=== PATIENT | female | born 1935 | race Hispanic/Latino ===

== ENCOUNTER 2019-01-08 07:35 | Outpatient (CLI) | payer MEDICARE, BC | END 2019-01-08 07:36 | disposition home or self-care (01) | LOC: CT 07:35 | PROVIDERS: ATTEND Thoracic Surgery (Cardiothoracic Vascular Surgery) | DX: Z53.9 Procedure and treatment not carried out, unspecified reason (principal) | CPT/HCPCS: 82565 ==

== ENCOUNTER 2019-02-14 16:32 | Emergency (ER) | payer MEDICARE, BC ==
--- NOTE | 2019-02-14 17:06 | RAD ---
LEFT WRIST THREE VIEW: 02/14/19 INDICATION: Injury, pain. FINDINGS: There is an impacted displaced and comminuted distal metadiaphyseal fracture of the radius. Suggestio n of a component of intra-articular extension, at the medial aspect, although difficult to reliably d elineate. There is degenerative changes. IMPRESSION: Distal radial fracture with probable intra-articular extension. Recommend orthopedic consultation. POS: ISAAC
[2019-02-14] MEDS ORDERED: Acetaminophen/Codeine 30-300mg Tablet ONE (18:07)
[2019-02-14] MEDS ORDERED: Bupivacaine 0.5% 10 ML VIAL ONE (18:27)
[2019-02-14] MEDS ORDERED: Lidocaine 1% (PF) 30 ML VIAL ONE (18:35)
--- NOTE | 2019-02-14 19:40 | RAD ---
EXAM: 2 views of the left wrist HISTORY: Distal radius fracture COMPARISON: 02/14/2019 FINDINGS: 3 views of the left wrist shows a stable fracture of the metaphysis of the distal radius. A n overlying splint obscures fine bony and soft tissue detail. IMPRESSION: Distal radius fracture
--- NOTE | 2019-02-14 20:19 | RAD ---
EXAM: 2 views of the left wrist HISTORY: Distal radius fracture COMPARISON: 02/14/2019 at 7:22 PM FINDINGS: 2 views of the left wrist shows an unchanged fracture of the distal radial metaphysis which is foreshortened. An overlying splint obscures fine bony and soft tissue detail. IMPRESSION: Distal radius fracture
== END 2019-02-14 20:40 | disposition home or self-care (01) ==
LOC: ERS 16:32
DX: S52.502A Unspecified fracture of the lower end of left radius, initial encounter for closed fracture (principal); E78.5 Hyperlipidemia, unspecified; I10 Essential (primary) hypertension; F41.9 Anxiety disorder, unspecified; Z79.899 Other long term (current) drug therapy; W01.0XXA Fall on same level from slipping, tripping and stumbling without subsequent striking against object, initial encounter
CPT/HCPCS: 25605; J2001; J3490

== ENCOUNTER 2019-02-22 11:01 | Day surgery (SDC) | payer MEDICARE, BC ==
[2019-02-21 13:07] VITALS: BMI 25.6
[2019-02-22] MEDS ORDERED: Midazolam HCl 2 mg/2 ml Vial ONE (12:14)
[2019-02-22] MEDS ORDERED: Fentanyl 100 MCG/2 ML VIAL ONE ×3 (12:14→14:32)
[2019-02-22 12:35] LABS: Anion Gap 15 mmol/L (10-20); BUN (Urea Nitrogen) 46 mg/dL (9.8-20.1); Calc. Creatinine Clearance 21 mL/min (70-130); Calcium 9.5 mg/dL (7.8-10.44); Carbon Dioxide 22 mmol/L (23-31); Chloride 108 mmol/L (98-107); Estimated GFR-MDRD 24; Glucose 95 mg/dL (83-110); Potassium 4.6 mmol/L (3.5-5.1); Sodium 140 mmol/L (136-145)
[2019-02-22] MEDS ORDERED: HYDROcodone/Acetaminophen 5/325 mg Tablet PO PRN ×2 (12:42)
[2019-02-22] MEDS ORDERED: traMADol HCl 50 MG TAB PO PRN ×2 (12:42)
[2019-02-22] MEDS ORDERED: Ropivacaine 0.2% 550 ML 550 ML NERVE BLCK SCH (12:42)
[2019-02-22] MEDS ORDERED: Ketorolac Tromethamine 30 MG/ML VIAL IVP PRN (12:42)
[2019-02-22] MEDS ORDERED: Ondansetron PF 4 MG/2 ML Vial IVP PRN (12:42)
[2019-02-22] MEDS ORDERED: Promethazine HCl 25 MG/ML VIAL IM PRN (12:42)
[2019-02-22] MEDS ORDERED: HYDROcodone/Acetaminophen 10/325 mg Tablet PO PRN ×2 (12:42)
[2019-02-22] MEDS ORDERED: Zolpidem Tartrate 5 MG TAB PO PRN (12:42)
[2019-02-22] MEDS ORDERED: Fentanyl 100 MCG/2 ML VIAL SLOW IVP PRN (12:44)
[2019-02-22] MEDS ORDERED: Ropivacaine 0.2% HCl/PF (40 MG/20 ML VIAL) ONE (15:08)
[2019-02-22] MEDS ORDERED: Ropivacaine 0.5% HCl/PF (150 MG/30 ML VIAL) ONE (15:08)
--- NOTE | 2019-02-22 15:08 | RAD ---
Radiograph left forearm and wrist 2 views: DATE: 02/22/2019 Time: 12:55 PM HISTORY: 83-year-old female with acute, traumatic fracture of wrist. COMPARISON: 02/14/2019 at 8:00 PM FINDINGS: The comminuted fracture of the distal radial metaphysis has been reduced such that the major distal a nd proximal fragments are closer to anatomic alignment. There has been placement of a full are metallic plate fixated to the distal radial epiphysis and metaphysis, and distal diaphysis. Small fie ld-of-view fluoroscopic spot images obtained with C-arm in the OR. Ulna plus remains. Absence of ulnar styloid. IMPRESSION: 1. Immediately status post open reduction internal fixation of acute, traumatic, comminuted, displace d distal radial metaphyseal fracture. 2. Ulnar positive variance.
[2019-02-22] MEDS ORDERED: Ondansetron PF 4 MG/2 ML Vial ONE (16:34)
[2019-02-22] MEDS ORDERED: PROPOFOL 200 MG/20 ML VIAL ONE (16:34)
[2019-02-22] MEDS ORDERED: Dexamethasone 20 MG/5 ML VIAL ONE (16:34)
[2019-02-22] MEDS ORDERED: Lidocaine 1% PF 5 ML VIAL ONE (16:34)
--- NOTE | 2019-02-23 09:11 | OP ---
DATE OF PROCEDURE: 02/22/2019 PREOPERATIVE DIAGNOSIS: Displaced left distal radius fracture. POSTOPERATIVE DIAGNOSIS: Displaced left distal radius fracture. PROCEDURE PERFORMED: Open reduction and internal fixation of left distal radius. ANESTHESIA: General. CYCLE ANALYST: Court Oates PA-C. TOURNIQUET TIME: 43 minutes at 250 mmHg. IMPLANT: Synthes 2.4 mm variable angle LCP 2-column volar distal radial plate. COMPLICATIONS: None. DRAINS: None. SPECIMEN: None. OUTCOME: Near-anatomic alignment. INDICATIONS FOR PROCEDURE: The patient is an 83-year-old lady status post ground level fall sustaining a comminuted left distal radius fracture with shortening and loss of radial inclination. After discussion with the patient including the risks and benefits, we decided to proceed with open reduction and internal fixation in hopes of restoring more normal radial length and radial inclination and hopefully providing improved function once healed. Informed consent has been obtained, I believe all questions answered. DESCRIPTION OF PROCEDURE: The patient was brought to the operating room and a time-out performed followed by induction of general anesthesia. Next, the patient was positioned supine on the OR table and a sterile prep and drape was performed of the left upper extremity. The limb was then exsanguinated with Esmarch bandage, tourniquet inflated to 250 mmHg. Next, a volar radial skin incision was made. After the skin was sharply incised, dissection was carried down bluntly between the brachioradialis and flexor carpi radialis. The pronator quadratus was identified and reflected off the radial cortex of the distal radius and reflected to the midline revealing the underlying fracture. The fracture could be reduced. However, due to the fact that it was a week old, there really was not great interdigitation at the fracture edges and the bone was quite osteopenic. The fracture eventually could be reduced with almost normal radial length and religion of volar tilt, and radial inclination. At this point, a plate was applied to the volar cortex and held in place provisionally with a 2.7-mm screw in the longitudinal limb of the plate and then a total of four 2.4 mm variable angle screws were placed in the horizontal limb of the plate capturing the distal fragment. Two additional 2.7 mm cortical screws were placed proximally and then final AP and lateral C-arm images were obtained that showed just a slight residual ulnar positive variant, but without abutment of the lunate on the ulna and religion of volar tilt, and radial inclination. The wound was then irrigated with normal saline and closed in layers with 2-0 Vicryl followed by 4-0 nylon for the skin. A Xeroform gauze, Webril, and fiberglass splint were applied to the arm. The tourniquet was let down at the completion of dressing, and the patient was transferred to recovery room in stable condition. There were no complications. The patient tolerated the procedure well. Job ID: [id number]
== END 2019-02-22 16:55 | disposition home or self-care (01) ==
LOC: SDC 11:01
PROVIDERS: ATTEND Orthopaedic Surgery
PROC: 0PSJ04Z Reposition Left Radius with Internal Fixation Device, Open Approach (ICD-10-PCS; principal; 2019-02-22)
PROC: 3E0T3BZ Introduction of Anesthetic Agent into Peripheral Nerves and Plexi, Percutaneous Approach (ICD-10-PCS; 2019-02-22)
DX: S52.572A Other intraarticular fracture of lower end of left radius, initial encounter for closed fracture (principal); G89.18 Other acute postprocedural pain; I10 Essential (primary) hypertension; E11.9 Type 2 diabetes mellitus without complications; I83.90 Asymptomatic varicose veins of unspecified lower extremity; W19.XXXA Unspecified fall, initial encounter; Y92.009 Unspecified place in unspecified non-institutional (private) residence as the place of occurrence of the external cause; Z79.82 Long term (current) use of aspirin; Z79.899 Other long term (current) drug therapy
CPT/HCPCS: 76000; 80048; 93005; 93010; A4306; C1713; J0690; J1100; J2001; J2250; J2405; J2704; J2795; J3010

== ENCOUNTER 2019-02-23 20:58 | Inpatient (IN) | payer MEDICARE, BC ==
[~2019-02-23 20:58] MED LIST: ISOVUE-370 76%-LOCM 1 ML ONE
[2019-02-23] MEDS ORDERED: Rocuronium Bromide 10 MG/ML (10ML VIAL) ONE (21:03)
[2019-02-23] MEDS ORDERED: fentaNYL Citrate/PF 2,000 MCG in Sodium Chloride 0.9% 60 ML IV SCH (21:14)
[2019-02-23] MEDS ORDERED: Fentanyl 100 MCG/2 ML VIAL ONE (21:15)
[2019-02-23 21:27] LABS: #Basophils 0.1 thou/uL (0.0-0.2); #Eosinphils 0.2 thou/uL (0.0-0.7); #Lymphocytes 5.7 thou/uL (1.20-3.40); #Monocytes 1.2 thou/uL (0.11-0.59); #Neutrophils 12.6 thou/uL (1.40-6.50); %Basophils 0.7 % (0.0-1.0); %Eosinophils 0.8 % (0.0-10.0); %Lymphocytes 28.8 % (21.0-51.0); %Monocytes 6.2 % (0.0-10.0); %Neutrophils 63.5 % (42.0-75.0); Hemoglobin 11.2 g/dL (12.0-16.0); Mean Corpuscular HGB CONC 32.7 g/dL (32.0-36.0); Mean Corpuscular Hemoglobin 32.7 pg (27.0-31.0); Mean Platelet Volume 9.1 fL (7.4-10.4); Platelet Count 272 thou/uL (130-400); RBC Distribution Width 11.9 % (11.5-14.5); Red Blood Cell (RBC) Count 3.42 mill/uL (4.20-5.40); White Blood Cell (WBC) Count 19.9 thou/uL (4.8-10.8)
--- NOTE | 2019-02-23 21:30 | RAD ---
XR Chest 1 View Portable History: Endotracheal tube placement Comparison: None. Findings: Endotracheal tube tip is at level of clavicles in position. Enteric tube is coiled with tip at the distal thoracic esophagus. Abnormal interstitial markings throughout the lungs. Small right effusion. Heart size upper limits of normal. Impression: 1. Endotracheal tube tip at level of clavicles. 2. Cardiomegaly and mild pulmonary edema. 3. Small right effusion. 4. Enteric tube coiled in the distal esophagus with tip above the GE junction. Recommend retracting a nd re-advancing.
[2019-02-23 21:48] LABS: ALT (SGPT) 11 U/L (8-55); AST (SGOT) 21 U/L (5-34); Alkaline Phosphatase 70 U/L (40-150); Anion Gap 18 mmol/L (10-20); BUN (Urea Nitrogen) 42 mg/dL (9.8-20.1); Bilirubin, Total 0.8 mg/dL (0.2-1.2); Calc. Creatinine Clearance 0 mL/min (70-130); Calcium 8.7 mg/dL (7.8-10.44); Carbon Dioxide 17 mmol/L (23-31); Chloride 106 mmol/L (98-107); Estimated GFR-MDRD 19; Globulin 3.2 g/dL (2.4-3.5); Glucose 244 mg/dL (83-110); Lipase 14 U/L (8-78); Magnesium 1.9 mg/dL (1.6-2.6); Potassium 3.9 mmol/L (3.5-5.1); Protein, Total 7.2 g/dL (6.0-8.3); Sodium 137 mmol/L (136-145)
--- NOTE | 2019-02-23 22:02 | CT ---
CT Brain WO Con History: Altered metal status Comparison: None. Findings: Mild bilateral senile basal ganglia calcifications. No acute hemorrhage. No midline shift o r mass effect. There are hypodensities of both thalami and basal ganglia. Calvarium is intact. Paranasal sinuses and mastoids are clear. Impression: 1. Hypodensities of both thalami and basal ganglia likely chronic. If there is concern for acute infa rction, MRI recommended given lack of comparison examinations. 2. No acute hemorrhage.
[2019-02-23 22:09] LABS: CKMB 2.4 ng/mL (0-6.6)
--- NOTE | 2019-02-23 22:17 | CT ---
CTA Angio Chest W WO Con History: Pulmonary embolism. Past medical history of pulmonary embolism. Altered mental status. Comparison: Radiograph same day Findings: CT angiogram chest performed after the intravenous administration of contrast. 3-D renderin g provided. Endotracheal tube tip terminates above the santiago. Pulmonary trunk is dilated as well as the left and right main pulmonary arteries. No aneurysmal dilatation of the aorta. Enteric tube tip is in the gastric fundus. Heart size is enlarged. Moderate bilateral pleural effusions. Mild pulmonary edema. There is no nodule on the right minor fissure measures approximately 6 mm. Compressive atelectasis brent th lower lobes. Concern for superimposed infection/aspiration posterior segment right upper lobe. No thoracic spine compression deformity. Sternum and manubrium are intact. No acute rib fracture. Impression: 1. No pulmonary arterial filling defect. 2. Moderate pulmonary edema and large effusions. 3. Concern for superimposed infection posterior segment right upper lobe. 4. Dilated pulmonary arteries suggesting pulmonary arterial hypertension.
[2019-02-23] MEDS ORDERED: Piperacillin/Tazobactam 3.375 GM VIAL ONE (23:28)
[2019-02-23] MEDS ORDERED: Furosemide 40 MG/4 ML VIAL ONE (23:28)
[2019-02-23 23:51] LABS: Bilirubin Negative (Negative); Blood, Urine Trace (Negative); Clarity CLOUDY (Clear); Glucose, Urine (Dipstick) Negative (Negative); Leukocyte Moderate (Negative); Nitrite Negative (Negative); Protein, Urine (Dipstick) 30 mg/dL (Neg-Trace); Specific Gravity, Urine 1.023 (1.002-1.036); Urobilinogen 0.2 mg/dL (0.2-1.0); pH, Urine 5.5 (5.0-9.0)
[2019-02-23 23:53] LABS: Bacteria/HPF None Seen HPF (None Seen); RBC/HPF None Seen HPF (0-3); WBC/HPF 21-50 HPF (0-3); Yeast-AUWi Flag 10.2 (0-25.0)
[2019-02-24] LABS: Pathc Cast-AUWi Flag 2.85 (0-2.49)
[2019-02-24 00:09] LABS: Renal Epithelial None Seen HPF (0-3); Transitional Epithelial NONE SEEN HPF (0-3)
[2019-02-24 00:10] LABS: Hyaline Casts/LPF NONE SEEN LPF (0-3 Hyaline); Other Casts/LPF None Seen LPF (0-3 Hyaline)
[2019-02-24 01:05] LABS: Troponin I 0.467 ng/mL (< 0.028)
[2019-02-24] MEDS ORDERED: Sodium Chloride 0.45% 1,000 ML IV SCH (01:15)
[2019-02-24] MEDS ORDERED: Vancomycin HCl 1.75 GM in Sodium Chloride 0.9% 500 ML IVPB SCH (01:15)
[2019-02-24 01:29] LABS: Actual Bicarbonate (HCO3a) 18.2 mEq/L (22-28); Analyzer IN Cardio ER; Base Excess (BEa) -7.8 mEq/L (-2.0 to +3.0); Calcium, Ionized 1.09 mmol/L (1.12-1.30); Carboxyhemoglobin (COHb) 0.1 gm% (0.0-3.0); Potassium - ABG Lab 3.65 mmol/L (3.70-5.30); Puncture Site LBA; pH, Arterial 7.29 (7.35-7.45)
[2019-02-24 01:32] VITALS: BMI 27.6
[2019-02-24 01:49] LABS: Lactic Acid 3.8 mmol/L (0.5-2.2)
--- NOTE | 2019-02-24 04:10 | HP ---
PRIMARY CARE PHYSICIAN: CHIEF COMPLAINT: The patient was unresponsive. HISTORY OF PRESENT ILLNESS: This is an 83-year-old female patient with past medical history of hyperlipidemia, hypertension. The patient was brought by EMS. The patient's son was watching her vitals and she had been normal 2 hours prior to presentation. The patient was unresponsive, saturation was in the 50s with heart rate in the 30s and blood pressure was 195/106 en route, ER blood pressure was 166/90 with saturation of 75, heart rate 133. Symptoms were generalized. Her symptoms started suddenly with no clear triggers, no alleviating factors. The patient was intubated. During my examination, the patient was alert and answering simple questions, although intubated. REVIEW OF SYSTEMS: Unable to obtain as the patient is intubated. PAST MEDICAL HISTORY: The patient has a history of hyperlipidemia, hypertension. SURGICAL HISTORY: Appendectomy, hysterectomy, right wrist surgery. SOCIAL HISTORY: No alcohol. No drugs. No smoking history. FAMILY HISTORY: Reviewed and noncontributory to current presentation. KNOWN ALLERGIES: No known drug allergies. REPORTED MEDICATIONS: 1. Zetia. 2. Lisinopril. 3. Persantine. 4. Vaseretic. 5. Ditropan. 6. Amlodipine. 7. Acetaminophen. PHYSICAL EXAMINATION: VITAL SIGNS: Blood pressure 166/90 with heart rate 129, respiratory rate was 29, oxygen saturation was 87 on bag valve mask. The patient got intubated when improvement in saturation. GENERAL APPEARANCE: The patient is alert, unable to explore if she is oriented since the patient is intubated. HEENT: Eyes, normal conjunctivae. Moist oral mucosa. Anicteric. No JVD. RESPIRATORY: Bilateral air entry. No rales. No wheezes. Symmetric expansion. CARDIOVASCULAR: Normal rate, regular rhythm. No murmurs. No gallop. No edema. ABDOMEN: Soft. Normal bowel sounds. MUSCULOSKELETAL: Baseline range of motion. SKIN: Warm, intact. No pallor. No rash. No redness. Capillary refill seems to be intact. NEUROLOGIC: No evidence of any new focal weakness. Cranial nerves seems to be intact. PSYCHIATRIC: Good mood. No anxiety. Optimal judgment. LABORATORY STUDIES/DATA: EKG was reviewed. The patient has sinus tachycardia at the rate of 110. Conduction is normal. ST abnormalities, consider lateral ischemia, T-wave abnormalities. Cardiology chest CT was done, no pulmonary artery filling defect, moderate pulmonary edema and large effusions, concern for superimposed infection, posterior segment right upper lobe, dilated pulmonary artery suggesting pulmonary arterial hypertension. LABORATORY DATA: Reviewed. The patient has white count 19.9, hemoglobin 11.2, platelet count 272. Coagulation; D-dimer 2.41. Blood gas; pH 7.29, pCO2 39, PO2 97. This was done on SIMV. Mechanical rate 16, inspired O2 50, tidal volume 450, pressure support of 10, PEEP 5. Chemistry; sodium 137, potassium 3.9, chloride 106, carbon dioxide 17, anion gap of 18, BUN 42, creatinine 2.4, previous creatinine was 1.1, GFR is 19, glucose 244, lactic acid 3.7, second one 3.8, calcium 9.7, magnesium 1.9. LFTs were negative. Troponin 0.153, the repeat troponin 0.467. Beta-natriuretic peptide 1985. The urine was done, it was positive with white count 21. ASSESSMENT AND PLAN: The patient will be placed in the hospital with following medical problems: 1. Possible pneumonia. Bilateral large pleural effusion. This led to possible acute hypoxic respiratory failure and change in mentation. The patient was intubated. The patient is receiving antibiotics and we will continue for now. We will follow cultures, we will adjust the treatment as per sensitivity. 2. Acute hypoxic respiratory failure likely secondary to pneumonia. Treatment as above. The patient is intubated and sedated. Pulmonary is being consulted for recommendations. 3. Possible sepsis. The patient with organ dysfunction. The patient with lactic acidosis, white count of 19, tachycardic, possible pneumonia is the source. The patient has been on antibiotics. Continue treatment as above. 4. Positive D-dimer, likely secondary to recent wrist surgery. 5. Acute respiratory acidosis. The patient has a pH of 7.29 with pCO2 39 and some mild retention. The patient is already on a vent that most likely will resolve this problem. 6. Non-anion gap metabolic acidosis, carbon dioxide 17, is likely secondary to acute kidney failure. The patient is getting some fluids. We will monitor kidney function, adjust treatment as needed. 7. Lactic acidosis likely secondary to sepsis. We will treat underlying condition. 8. Uncontrolled hypertension, reconcile home medications. Adjust treatment as needed. 9. DVT prophylaxis. Job ID: [id number]
[2019-02-24] MEDS ORDERED: Piperacillin/Tazobactam 3.375 GM in Sodium Chloride 0.9% 100 ML IVPB SCH (06:00)
[2019-02-24 07:21] LABS: Troponin I 3.037 ng/mL (< 0.028)
[2019-02-24] MEDS: Oxybutynin ER 5 MG TAB PO SCH (08:04)
[2019-02-24 08:24] LABS: Actual Bicarbonate (HCO3a) 19.6 mEq/L (22-28); Base Excess (BEa) -2.1 mEq/L (-2.0 to +3.0); CO2 Tension 24.3 mmHg (35.0-45.0); Calcium, Ionized 1.06 mmol/L (1.12-1.30); Carboxyhemoglobin (COHb) 0.9 gm% (0.0-3.0); Hemoglobin (Hb) 10.1 g/dL (12.0-16.0); O2 Tension (PaO2) 97.2 mmHg (> 60.0); Potassium - ABG Lab 3.71 mmol/L (3.70-5.30); pH, Arterial 7.53 (7.35-7.45)
[2019-02-24 08:25] LABS: ALV-art Gradient 157.625 (0-20); Puncture Site RRA
[2019-02-24] MEDS ORDERED: Furosemide 100 MG/10 ML VIAL SLOW IVP SCH (08:45)
[2019-02-24] MEDS ORDERED: DIPYRIDAMOLE 75 MG PO SCH (09:00)
--- NOTE | 2019-02-24 09:58 | CON ---
DATE OF CONSULTATION: 02/24/2019 SERVICE: Pulmonary Medicine. REASON FOR CONSULT: Respiratory failure. HISTORY OF PRESENT ILLNESS: The patient is an 83-year-old female with past medical history significant for hypertension. She was in her usual state of health until a couple of weeks ago when she started having increasing dyspnea. This was with exertion, and at night. She wakes up gasping and choking on the side of the bed, sit up for 10 to 15 minutes on the side of the bed before it got better. This slowly progressed over a period of time. Ultimately, she was brought to the Emergency Department because of severe dyspnea. She did not have any fevers or chills. She has been coughing up some white phlegm. She was found to have saturations in the 50s in the field. She was intubated. Overnight, she is awake and alert on mechanical ventilation. She is very cooperative. Her oxygen requirements have weaned down beautifully, and the patient is breathing very comfortably. She has no specific complaints currently. PAST MEDICAL HISTORY: 1. Hypertension. 2. Dyslipidemia. PAST SURGICAL HISTORY: 1. Appendectomy. 2. Hysterectomy. 3. Left wrist surgery. SOCIAL HISTORY: Negative for alcohol, tobacco, or illicit drug use. She has no exposure to chemicals, dust, asbestos, or tuberculosis. FAMILY HISTORY: Noncontributory. ALLERGIES: NO KNOWN DRUG ALLERGIES. MEDICATIONS: List of her inpatient medications were reviewed. I have added some Lasix. REVIEW OF SYSTEMS: The patient is intubated under the influence of some sedation. As such, review of systems cannot be fully obtained. PHYSICAL EXAMINATION: VITAL SIGNS: Afebrile, pulse 77, blood pressure 129/70, respirations 10, and saturation 100% on 31% FiO2. GENERAL: The patient is awake and alert, in no apparent distress. LUNGS: Very good air entry. There is slightly prolonged expiratory phase, but I do not hear any wheezing or rhonchi. Crackles are present dependently. HEART: Normal rate. Regular. ABDOMEN: Soft, nontender, and nondistended. Bowel sounds are positive. MUSCULOSKELETAL: No cyanosis or clubbing. There is trace pitting in the bilateral lower extremities. NEUROLOGIC: Grossly nonfocal. LABORATORY DATA: WBC 19.9, hemoglobin 11.2, and platelets 272,000. The cell types have a normal differential. D-dimer 2.4. A pH of 7.53, pCO2 of 24, pO2 of 97, on 40% FiO2 at that time. Creatinine 2.4. Basic metabolic profile and liver function studies are unremarkable. BNP 1900, troponin is uptrending to 0.4. Lactate is roughly stable at 3.8. Urinalysis is unremarkable. Blood culture x2 are negative. IMAGIN. CTA of the chest demonstrates bilateral pleural effusions, and interstitial edema. I do not see any overt consolidating lesions. There are no significant air bronchograms throughout bilateral lung tang. No pulmonary embolism is present though the cardiac silhouette is quite generous, and the left atrium is massively dilated. 2. CT of the brain demonstrates no acute intracranial abnormality. 3. The EKG shows ST-segment depression in the lateral leads. ASSESSMENT: 1. Acute hypoxic respiratory failure. 2. Acute heart failure, new onset. 3. Non-ST elevation myocardial infarction secondary to significant volume overload. 4. Acute kidney injury on chronic kidney disease. 5. Sepsis, unlikely. DISCUSSION AND PLAN: The patient has done beautifully with nothing more than positive pressure ventilation. Vancomycin will be interrupted. We will continue the Zosyn for the time being, but rapidly deescalate this to nothing but Augmentin if she extubated today. I will give her a dose of Lasix. If she responds to this, put on a spontaneous breathing trial and extubate her. Cardiology consultation will be placed. We will also check an echocardiogram, and a TSH. Pulmonary will continue to follow in this location, but my suspicion is, she will likely transition to the floor tomorrow. Critical care time: 30 minutes. Job ID: [id number] MTDD
--- NOTE | 2019-02-24 12:30 | EKG ---
Test Reason : Blood Pressure : / mmHG Vent. Rate : 110 BPM Atrial Rate : 110 BPM P-R Int : 142 ms QRS Dur : 090 ms QT Int : 364 ms P-R-T Axes : 050 037 121 degrees QTc Int : 492 ms Sinus tachycardia Abnormal ECG Confirmed by CAMILLA WEINSTEIN ([id number]), industrial editor TEJA HOANG ([id number]) on 02/24/2019 12:30:40 PM Referred By: Confirmed By:CAMILLA WEINSTEIN
[2019-02-24] MEDS: Amoxicillin/Potassium Clav 500 MG TAB PO SCH ×2 (15:33→20:40)
[2019-02-24] MEDS: Amlodipine 5 MG TAB PO SCH (20:40)
[2019-02-25] MEDS ORDERED: Furosemide 100 MG/10 ML VIAL SLOW IVP SCH (06:00)
[2019-02-25 08:26] LABS: #Basophils 0.1 thou/uL (0.0-0.2); #Eosinphils 0.2 thou/uL (0.0-0.7); #Lymphocytes 2.1 thou/uL (1.20-3.40); #Monocytes 1.2 thou/uL (0.11-0.59); %Basophils 0.7 % (0.0-1.0); %Eosinophils 1.8 % (0.0-10.0); %Lymphocytes 19.9 % (21.0-51.0); %Monocytes 11.2 % (0.0-10.0); %Neutrophils 66.5 % (42.0-75.0); Hemoglobin 11.8 g/dL (12.0-16.0); Mean Corpuscular HGB CONC 33.3 g/dL (32.0-36.0); Mean Corpuscular Hemoglobin 32.3 pg (27.0-31.0); Mean Corpuscular Volume 96.9 fL (78.0-98.0); Mean Platelet Volume 8.7 fL (7.4-10.4); Platelet Count 236 thou/uL (130-400); RBC Distribution Width 11.8 % (11.5-14.5); Red Blood Cell (RBC) Count 3.65 mill/uL (4.20-5.40); White Blood Cell (WBC) Count 10.5 thou/uL (4.8-10.8)
[2019-02-25 08:45] LABS: Anion Gap 18 mmol/L (10-20); BUN (Urea Nitrogen) 37 mg/dL (9.8-20.1); Calc. Creatinine Clearance 20 mL/min (70-130); Calcium 9.2 mg/dL (7.8-10.44); Carbon Dioxide 24 mmol/L (23-31); Chloride 101 mmol/L (98-107); Estimated GFR-MDRD 21; Glucose 97 mg/dL (83-110); Magnesium 1.7 mg/dL (1.6-2.6); Phosphorus 3.2 mg/dL (2.3-4.7); Potassium 3.1 mmol/L (3.5-5.1); Sodium 140 mmol/L (136-145)
[2019-02-25] MEDS ORDERED: Furosemide 40 MG/4 ML VIAL SLOW IVP SCH (09:00)
[2019-02-25] MEDS ORDERED: Potassium Chloride 20 MEQ TAB PO SCH (09:15)
[2019-02-25] MEDS: Amoxicillin/Potassium Clav 500 MG TAB PO SCH ×2 (09:17→21:49)
[2019-02-25] MEDS: Oxybutynin ER 5 MG TAB PO SCH (09:18)
--- NOTE | 2019-02-25 09:23 | PRG ---
DATE OF SERVICE: 02/25/2019 SERVICE: Pulmonary Medicine. INTERVAL HISTORY: The patient is doing absolutely wonderful from respiratory standpoint. She is breathing comfortably. She has no complaints of chest discomfort, nausea, or vomiting. She has no shortness of breath this morning. She has been weaned down to room air. Otherwise, there has been no interval change to her condition. PHYSICAL EXAMINATION: VITAL SIGNS: Afebrile. Pulse 81, blood pressure 142/80, respirations 19, and saturation 97% on room air. GENERAL: The patient is awake and alert, in no apparent distress. LUNGS: Excellent air entry. There is some dependent crackles present, but it is dramatically improved. No prolonged expiratory phase or wheezing is appreciated. HEART: Normal rate, regular. ABDOMEN: Soft, nontender, nondistended. Bowel sounds are positive. MUSCULOSKELETAL: No cyanosis or clubbing. There is no pitting in the bilateral lower extremities. NEUROLOGIC: Grossly nonfocal. LABORATORY DATA: WBC 10.5, hemoglobin 11.8, platelets 263,000. Creatinine 2.27 and gently downtrending, BUN 37 and downtrending. Potassium 3.1. Troponin is up trending to 3.03, TSH 1.4. Urinalysis is unremarkable. Blood cultures x2 are negative to date. ASSESSMENT: 1. Acute hypoxic respiratory failure. 2. Acute heart failure, new onset. 3. [id number] myocardial infarction secondary to significant volume overload. 4. Acute kidney injury on chronic kidney disease. 5. Sepsis, unlikely. DISCUSSION AND PLAN: The patient is doing fine from a respiratory standpoint. The patient reports to me today that she absolutely never had a fever. As such, we will convert her over to p.o. Augmentin and complete a 5-day course. I will continue diuresing her through time. I appreciate Cardiology's opinion. Echocardiogram is still pending. That being said, she is stable for transition out of the ICU to the telemetry unit. At this point, she has no further requirements for inpatient Pulmonary Critical Care opinion, and I will sign off. I will give her a dose of potassium today. Job ID: [id number]
[2019-02-25] MEDS ORDERED: Amiodarone 150 MG in Dextrose 5% in Water 100 ML IVPB SCH (10:00)
[2019-02-25] MEDS: Amiodarone 450 MG in Dextrose 5% in Water 250 ML IVPB SCH (10:07)
[2019-02-25] MEDS ORDERED: Digoxin 0.5 MG/2 ML AMP ONE (16:30)
[2019-02-25] MEDS ORDERED: Digoxin 0.5 MG/2 ML AMP SLOW IVP SCH ×2 (16:45→18:30)
--- NOTE | 2019-02-25 18:06 | PDOC.PN ---
- Subjective Encounter Start Date: 02/25/19 Encounter Start Time: 18:00 Subjective: f/u for NSTEMI, CHF and resp failure s/p extubation. States doing -: ok overall. No new complaints. Denies dyspnea. - Objective MAR Reviewed: Yes Vital Signs & Weight: Vital Signs (12 hours) Temp 02/25/19 15:45 98.0 F 02/25/19 12:00 98.0 F 02/25/19 07:00 98.4 F Weight Weight 151 lb 3.794 oz Most Recent Monitor Data Heart Rate from ECG 118 NIBP 121/91 NIBP BP-Mean 101 Respiration from ECG 24 SpO2 97 I&O: 02/24/19 02/25/19 02/26/19 06:59 06:59 06:59 Intake Total 1136.5 801 1060 Output Total 940 3865 985 Balance 196.5 -3064 75 Result Diagrams: 02/25/19 08:20 02/25/19 08:20 Additional Labs: Microbiology 02/23/19 23:41 Urine lopez catheter Urine Culture - Final Gram Negative Madhav Gram Negative Madhav#2 02/23/19 21:41 Venous blood - Right Arm Blood Culture - Preliminary NO GROWTH AT 48 HOURS 02/23/19 21:35 Venous blood - Right Hand Blood Culture - Preliminary NO GROWTH AT 48 HOURS Laboratory Tests 02/22/14 02/22/19 02/23/19 06:16 11:50 21:06 WBC 19.9 H Hgb 11.2 L Potassium Creatinine 1.19 H 2.01 H Troponin I B-Natriuretic Peptide [facility] 3rd Generation 02/23/19 02/23/19 02/23/19 21:06 21:06 21:06 WBC Hgb Potassium 3.9 Creatinine 2.40 H Troponin I 0.153 H B-Natriuretic Peptide 1985.1 H TSH 3rd Generation 02/24/19 02/24/19 02/24/19 00:15 06:30 06:30 WBC Hgb Potassium Creatinine Troponin I 0.467 H* 3.037 H* B-Natriuretic Peptide TSH 3rd Generation 1.4479 Radiology Reviewed by me: Yes (CTA chest - bilat pleural effusions, no PE) EKG Reviewed by me: Yes (Tele - A-fib RVR in 130's) Phys Exam - Physical Examination Constitutional: NAD HEENT: PERRLA, sclera anicteric, oral pharynx no lesions Neck: no nodes, no JVD, supple, full ROM diminished in bases Respiratory: no wheezing, no rales, no rhonchi tachycardic S1, S2 Cardiovascular: no significant murmur, no rub, irregular Gastrointestinal: soft, non-tender, no distention, positive bowel sounds Musculoskeletal: pulses present, edema present Neurological: normal sensation, moves all 4 limbs Psychiatric: A&O x 3 Skin: normal turgor, cap refill <2 seconds Dx/Plan (1) Acute respiratory failure with hypoxia Code(s): J96.01 - ACUTE RESPIRATORY FAILURE WITH HYPOXIA Status: Acute Comment: Suspect multifactorial including CHF and NSTEMI, extubated today, continue general pulmonary support (2) NSTEMI (non-ST elevated myocardial infarction) Code(s): I21.4 - NON-ST ELEVATION (NSTEMI) MYOCARDIAL INFARCTION Status: Acute Comment: Appears to be Type II, Cardiology consultation, ASA (3) Acute CHF (congestive heart failure) Code(s): I50.9 - HEART FAILURE, UNSPECIFIED Status: Acute Comment: Continue Lasix 40mg IV daily, check 2D echo (4) Acute kidney injury superimposed on CKD Code(s): N17.9 - ACUTE KIDNEY FAILURE, UNSPECIFIED; N18.9 - CHRONIC KIDNEY DISEASE, UNSPECIFIED Status: Acute Comment: Avoid nephrotoxic meds and limit contrast exposure, serial creatinine monitoring (5) Atrial fibrillation with RVR Code(s): I48.91 - UNSPECIFIED ATRIAL FIBRILLATION Status: Acute Comment: Continue Amiodarone gtt, appears to be new-onset, Digoxin 0.25mg IV now, 2D echo pending, Cardiology consulted (6) Lactic acidosis Code(s): E87.2 - ACIDOSIS Status: Acute Comment: Secondary to respiratory failure, improving - Plan continue antibiotics, PT/OT, social work therapist, respiratory therapy Stable currently -: Digoxin 0.25mg IV now -: Continue Amiodarone gtt -: Continue Lasix 40mg IV daily -: AM lab: BMP, Mg++ * Transfer to telemetry
[2019-02-25] MEDS: Amlodipine 5 MG TAB PO SCH (21:49)
[2019-02-26 05:58] LABS: Anion Gap 14 mmol/L (10-20); BUN (Urea Nitrogen) 39 mg/dL (9.8-20.1); Calc. Creatinine Clearance 21 mL/min (70-130); Calcium 8.7 mg/dL (7.8-10.44); Carbon Dioxide 23 mmol/L (23-31); Chloride 103 mmol/L (98-107); Estimated GFR-MDRD 21; Glucose 117 mg/dL (83-110); Magnesium 1.5 mg/dL (1.6-2.6); Potassium 3.6 mmol/L (3.5-5.1); Sodium 136 mmol/L (136-145)
[2019-02-26] MEDS ORDERED: Vancomycin HCl 750 MG in Sodium Chloride 0.9% 250 ML 250 ML IVPB SCH (09:00)
[2019-02-26] MEDS: Amoxicillin/Potassium Clav 500 MG TAB PO SCH ×2 (09:14→20:04)
[2019-02-26] MEDS: Oxybutynin ER 5 MG TAB PO SCH (09:15)
[2019-02-26] MEDS: Furosemide 40 MG/4 ML VIAL SLOW IVP SCH (09:16)
[2019-02-26] MEDS: Amiodarone 450 MG in Dextrose 5% in Water 250 ML IVPB SCH (11:14)
[2019-02-26] MEDS ORDERED: Aspirin 325 MG TAB PO SCH (11:15)
--- NOTE | 2019-02-26 11:53 | PQF ---
CLINICAL DOCUMENTATION IMPROVEMENT CLARIFICATION FORM: ICD-10 Updated PLEASE DO AN ADDENDUM TO THE PROGRESS NOTE WITH ANY DOCUMENTATION UPDATES OR ADDITIONS AND CARRY THROUGH TO DC SUMMARY. THANK YOU. DATE: 02/26/19 ATTN: DR. AMBROSIO Please exercise your independent, professional judgment in responding to the clarification form. Clinical indicators are provided on the bottom of this form for your review Please check appropriate box(s) to clarify if the following diagnosis has been ruled in or ruled out: "SEPSIS" [ ] Ruled in diagnosis [ ] Continue to treat [ ] Resolved [ x ] Ruled out diagnosis [ ] Cannot rule out diagnosis [ ] Other diagnosis [ ] Unable to determine In addition, please specify: Present on Admission (POA): [ ] Yes [ x ] No [ ] Unable to determine For continuity of documentation, please document condition throughout progress notes and discharge summary. Thank You. CLINICAL INDICATORS - SIGNS / SYMPTOMS / LABS 02/24: "POSSIBLE SEPSIS" PULSE 134 WBC19.9 LACTIC ACID 3.8 RISKS: PNEUMONIA TREATMENT: IV VANCOMYCIN (ER) IV ZOSYN (ER) AUGMENTIN (02/24-03/01) INTUBATION WITH MECHANICAL VENTILATION BLOOD AND URINE CULTURES (This form is maintained as a part of the permanent medical record) [employer] Viewer 2015 [employer] All Rights Reserved [email or web address] Office: [phone] LISA
--- NOTE | 2019-02-26 16:25 | PDOC.PN ---
- Subjective Encounter Start Date: 02/26/19 Encounter Start Time: 16:20 Subjective: f/u for NSTEMI Type II, resp failure, A-fib RVR on Amiodarone gtt -: converting to SR. Feels better overall. No CP, SOB or fever. - Objective MAR Reviewed: Yes Vital Signs & Weight: Vital Signs (12 hours) Temp Pulse Resp BP Pulse Ox 02/26/19 15:45 97.5 F L 77 16 153/67 H 97 02/26/19 11:48 97.9 F 66 16 164/66 H 93 L 02/26/19 08:20 96 02/26/19 07:53 98.1 F 72 16 166/72 H 96 02/26/19 04:51 98.9 F 82 20 169/66 H 92 L Weight Weight 151 lb 3.794 oz Most Recent Monitor Data Heart Rate from ECG 123 NIBP 119/89 NIBP BP-Mean 99 Respiration from ECG 27 SpO2 97 I&O: 02/25/19 02/26/19 02/27/19 06:59 06:59 06:59 Intake Total 801 1525 290 Output Total 3865 1735 800 Balance -3064 -210 -510 Result Diagrams: 02/25/19 08:20 02/26/19 05:29 Additional Labs: Microbiology 02/23/19 23:41 Urine lopez catheter Urine Culture - Final Gram Negative Madhav Gram Negative Madhav#2 02/23/19 21:41 Venous blood - Right Arm Blood Culture - Preliminary NO GROWTH AT 48 HOURS 02/23/19 21:35 Venous blood - Right Hand Blood Culture - Preliminary NO GROWTH AT 48 HOURS Laboratory Tests 02/22/14 02/22/19 02/23/19 06:16 11:50 21:06 WBC 19.9 H Hgb 11.2 L Potassium Creatinine 1.19 H 2.01 H Troponin I B-Natriuretic Peptide TSH 3rd Generation 02/23/19 02/23/19 02/23/19 21:06 21:06 21:06 WBC Hgb Potassium 3.9 Creatinine 2.40 H Troponin I 0.153 H B-Natriuretic Peptide 1985.1 H TSH 3rd Generation 02/24/19 02/24/19 02/24/19 00:15 06:30 06:30 WBC Hgb Potassium Creatinine Troponin I 0.467 H* 3.037 H* B-Natriuretic Peptide TSH 3rd Generation 1.4479 Radiology Reviewed by me: Yes (Echo - EF 30-35%, severe TR, mod MR/AR, mod LAE) EKG Reviewed by me: Yes (Tele - SR in 80's) Phys Exam - Physical Examination Constitutional: NAD HEENT: PERRLA, sclera anicteric, oral pharynx no lesions Neck: no nodes, no JVD, supple, full ROM mild bibasilar crackles Respiratory: no wheezing, no rhonchi II/ NAHUM in RUSB, S1, S2 Cardiovascular: RRR, no rub, gallop Gastrointestinal: soft, non-tender, no distention, positive bowel sounds Musculoskeletal: no edema, pulses present Neurological: normal sensation, moves all 4 limbs Psychiatric: A&O x 3 Skin: normal turgor, cap refill <2 seconds Dx/Plan (1) Atrial fibrillation with RVR Code(s): I48.91 - UNSPECIFIED ATRIAL FIBRILLATION Status: Acute Comment: Converted to SR, start Amiodarone 400mg BID, d/c Amiodarone gtt, consider OAC option, Cardiology consulted (2) NSTEMI (non-ST elevated myocardial infarction) Code(s): I21.4 - NON-ST ELEVATION (NSTEMI) MYOCARDIAL INFARCTION Status: Acute Comment: Appears to be Type II, Cardiology consultation, ASA (3) Acute respiratory failure with hypoxia Code(s): J96.01 - ACUTE RESPIRATORY FAILURE WITH HYPOXIA Status: Acute Comment: Suspect multifactorial including CHF and NSTEMI, extubated today, continue general pulmonary support (4) Acute CHF (congestive heart failure) Code(s): I50.9 - HEART FAILURE, UNSPECIFIED Status: Acute Comment: Continue Lasix 40mg IV daily, appears systolic given EF 30%, Cardiology consulted, may need LifeVest prior to d/c (5) Acute kidney injury superimposed on CKD Code(s): N17.9 - ACUTE KIDNEY FAILURE, UNSPECIFIED; N18.9 - CHRONIC KIDNEY DISEASE, UNSPECIFIED Status: Acute Comment: Avoid nephrotoxic meds and limit contrast exposure, serial creatinine monitoring, mild improvement (6) Lactic acidosis Code(s): E87.2 - ACIDOSIS Status: Acute Comment: Secondary to respiratory failure, improving - Plan continue antibiotics, PT/OT, social work manager, out of bed/ambulate, DVT proph w/ SCDs Stable currently -: Start Amiodarone 400mg BID -: D/C Amiodarone gtt -: Continue ASA 325mg daily -: Cardiology consult pending * Start Coreg 3.125mg BID * D/C Amlodipine * AM lab: BMP, Lipid profile
[2019-02-26] MEDS ORDERED: Amiodarone 200 MG TAB PO SCH (17:00)
[2019-02-26] MEDS: Carvedilol 3.125 MG TAB PO SCH (17:25)
--- NOTE | 2019-02-27 00:47 | CON ---
DATE OF CONSULTATION: 02/26/2019 REASON FOR CONSULTATION: New onset cardiomyopathy. HISTORY OF PRESENT ILLNESS: Ms. Yo is a pleasant 83-year-old female, who comes to the hospital for respiratory insufficiency. She came in severely short-winded and had to be intubated to protect her airway. Eventually , she was diuresed as she appeared to be in pulmonary edema, although there was a concern for possible pneumonia. Eventually, she was extubated. Echocardiogram was done and showed severely reduced EF at 30% to 35%. Cardiology has been consulted for this. On my evaluation, Ms. Yo feels well. She still has some amount of fluid in her lungs. She has some crackles still. She is on room air, however. She tells me that for the last 4-6 weeks, she has been noticing symptoms consistent with paroxysmal nocturnal dyspnea and orthopnea that have been slowly getting worse to the point where it got much worse the day of admission. Her lungs have cleared up really well with Lasix and this was most likely just primarily a heart failure exacerbation secondary to possibly urinary tract infection looking at her moderate leukocyte esterase on urine study. At this point, Ms. Yo admits to having mild episodes of chest pain, mostly in the right side of her chest. She is not too active and has actually slowed down much more in the last 2 weeks and she has been more short of breath with any activity. PAST MEDICAL HISTORY: 1. Hypertension. 2. Hyperlipidemia. 3. Peripheral vascular disease. PAST SURGICAL HISTORY: 1. Appendectomy. 2. Hysterectomy. 3. Left wrist surgery. 4. Carotid endarterectomy. 5. Stenting to her SFA. This was done by Dr. Mota. SOCIAL HISTORY: No alcohol, tobacco, or drugs. FAMILY HISTORY: Noncontributory. OUTPATIENT MEDICATIONS: 1. Tylenol No.3. 2. Dipyridamole 1 tablet b.i.d. 3. Amlodipine 5 mg at bedtime. 4. Zetia 10 mg at bedtime. 5. Enalapril/hydrochlorothiazide 10/25 mg a day. 6. Oxybutynin. REVIEW OF SYSTEMS: A 12-point review of systems was negative unless stated in history of present illness. ALLERGIES: NO KNOWN DRUG ALLERGIES. PHYSICAL EXAMINATION: VITAL SIGNS: Temperature 97.5, pulse 77, respiratory rate 16, saturating 97% on room air, and blood pressure 153/67. GENERAL: Awake, alert, oriented x3, in no distress. HEENT: Normocephalic and atraumatic. NECK: Supple. LUNGS: Mild crackles at the bases. CARDIOVASCULAR: S1 and S2. No S3 or S4. ABDOMEN: Soft. Positive bowel sounds. EXTREMITIES: Trace edema. SKIN: Warm and dry. LABORATORY DATA: Laboratory work was reviewed. CBC with a white count of 19 on arrival down to 10.5, hemoglobin of 11, hematocrit 35, platelet count of 236. Coags, D-dimer was high. ABG was reviewed. Chemistries were reviewed, but creatinine initially of 2.4 down to 2.2, lactic acid of 3.8, magnesium down to 1.5. Troponin went from 0.12 to 0.4, now 3.0. TSH was 1.4 and lipase was normal. UA was reviewed. Echocardiogram showed an EF of 30% to 35%, with sclerotic aortic valve and moderate aortic insufficiency. Moderate mitral regurgitation and severe tricuspid regurgitation, and left pleural effusion. ASSESSMENT: 1. New onset dilated cardiomyopathy, EF at 30% to 35%. 2. Moderate aortic insufficiency. 3. Moderate mitral insufficiency. 4. Severe tricuspid regurgitation. 5. Severe peripheral vascular disease. 6. Chronic kidney disease stage 4. 7. Non-ST elevation myocardial infarction. 8. Paroxysmal Afib, new onset. PLAN: 1. I spoke with Ms. Yo about possibly doing a heart catheterization. This would put her kidneys at significant risk of renal dysfunction. She did have contrast on admission with a CT angio of the chest with and without contrast. Her creatinine did get better after diuresis, now down to 2.2. Certainly, the level is not prohibitive. Ms. Yo is currently not interested in undergoing a heart catheterization as she would like to be conservative. Her renal status has something to do with this decision, but mostly her desire is to be conservative with her care. 2. We will plan on starting optimal medical therapy and risk factor modification. We will start her on a beta levar. She is already on carvedilol 3.125 b.i.d. We will try to up titrate this as blood pressure allows. 3. Continue Lasix at current dose as she is still mildly volume overload. 4. Agree with stopping amlodipine as this gives no benefit for LV function. 5. Continue p.o. amiodarone load at 400 b.i.d. for the next 7 days for her atrial fibrillation. 6. We will consider adding hydralazine with isosorbide mononitrate/dinitrate if her blood pressure will allow in the next few days. It seems like she is going to be able to tolerate this as her blood pressure is on the high side. 7. We spoke about AICD placement in the near future and she would be interested in this and I also spoke to her about possibly doing a LifeVest and her wears a LifeVest and the whole family is in agreement that they want her to be on a LifeVest as well. We will put an order for this as well. 8. Continue amiodarone for afib. Her CHADS VASc score is 5 so she would benefit from full anticoagulation for stroke prophylaxis. Thank you for letting me to participate in the care of your patient. We will follow. Job ID: [id number] MTDD
[2019-02-27 05:58] LABS: Anion Gap 16 mmol/L (10-20); BUN (Urea Nitrogen) 40 mg/dL (9.8-20.1); Calc. Creatinine Clearance 19 mL/min (70-130); Calcium 8.6 mg/dL (7.8-10.44); Carbon Dioxide 23 mmol/L (23-31); Cardiac Risk 4.6 (Less than 4.5); Chloride 101 mmol/L (98-107); Cholesterol 188 mg/dl (< 200 Desired); Estimated GFR-MDRD 20; Glucose 102 mg/dL (83-110); HDL Cholesterol 41 mg/dL (>60 Neg Risk); LDL Cholesterol, Calculated 128 mg/dL; Magnesium 1.5 mg/dL (1.6-2.6); Potassium 3.5 mmol/L (3.5-5.1); Sodium 136 mmol/L (136-145); Triglycerides 93 mg/dL (Less than 150)
[2019-02-27] MEDS: Amoxicillin/Potassium Clav 500 MG TAB PO SCH (08:52)
[2019-02-27] MEDS: Isosorbide Dinitrate 5 MG TAB PO SCH ×2 (08:52→20:10)
[2019-02-27] MEDS: Aspirin 325 MG TAB PO SCH (08:52)
[2019-02-27] MEDS: Amiodarone 200 MG TAB PO SCH ×2 (08:52→20:09)
[2019-02-27] MEDS: Oxybutynin ER 5 MG TAB PO SCH (08:52)
[2019-02-27] MEDS: Carvedilol 3.125 MG TAB PO SCH ×2 (08:53→16:49)
[2019-02-27] MEDS: hydrALAZINE 10 MG TAB PO SCH ×2 (08:53→20:10)
[2019-02-27] MEDS: Furosemide 40 MG/4 ML VIAL SLOW IVP SCH (08:54)
--- NOTE | 2019-02-27 10:00 | PDOC.PN ---
- Subjective Encounter Start Date: 02/27/19 Encounter Start Time: 09:50 Subjective: f/u for new cardiomyopathy on current Coreg, Lasix, Amiodarone, -: Nitrates, Hydralazine. Plan for med mgmt and LifeVest application -: prior to d/c. c/o multiple loose stools this am. No N/V. - Objective MAR Reviewed: Yes Vital Signs & Weight: Vital Signs (12 hours) Temp Pulse Resp BP BP Pulse Ox 02/27/19 08:53 74 156/84 H 02/27/19 07:59 97.9 F 74 16 156/84 H 94 L 02/27/19 03:45 97.9 F 72 16 156/70 H 95 02/26/19 23:30 98.1 F 66 16 159/82 H 97 Weight Weight 151 lb 3.794 oz Most Recent Monitor Data Heart Rate from ECG 123 NIBP 119/89 NIBP BP-Mean 99 Respiration from ECG 27 SpO2 97 I&O: 02/26/19 02/27/19 02/28/19 06:59 06:59 06:59 Intake Total 1525 290 Output Total 1735 800 Balance -210 -510 Result Diagrams: 02/25/19 08:20 02/27/19 04:25 Additional Labs: Microbiology 02/23/19 23:41 Urine lopez catheter Urine Culture - Final Gram Negative Madhav Gram Negative Madhav#2 02/23/19 21:41 Venous blood - Right Arm Blood Culture - Preliminary NO GROWTH AT 48 HOURS 02/23/19 21:35 Venous blood - Right Hand Blood Culture - Preliminary NO GROWTH AT 48 HOURS Laboratory Tests 02/22/14 02/22/19 02/23/19 06:16 11:50 21:06 WBC 19.9 H Hgb 11.2 L Potassium Creatinine 1.19 H 2.01 H Magnesium Troponin I B-Natriuretic Peptide Triglycerides Cholesterol LDL Cholesterol, Calc HDL Cholesterol TSH 3rd Generation 02/23/19 02/23/19 02/23/19 21:06 21:06 21:06 WBC Hgb Potassium 3.9 Creatinine 2.40 H Magnesium Troponin I 0.153 H B-Natriuretic Peptide 1985.1 H Triglycerides Cholesterol LDL Cholesterol, Calc HDL Cholesterol TSH 3rd Generation 02/24/19 02/24/19 02/24/19 00:15 06:30 06:30 WBC Hgb Potassium Creatinine Magnesium Troponin I 0.467 H* 3.037 H* B-Natriuretic Peptide Triglycerides Cholesterol LDL Cholesterol, Calc HDL Cholesterol TSH 3rd Generation 1.4479 02/26/19 02/27/19 05:29 04:25 WBC Hgb Potassium 3.6 Creatinine 2.21 H Magnesium 1.5 L 1.5 L Troponin I B-Natriuretic Peptide Triglycerides 93 Cholesterol 188 LDL Cholesterol, Calc 128 HDL Cholesterol 41 TSH 3rd Generation EKG Reviewed by me: Yes (Tele - SR) Phys Exam - Physical Examination Constitutional: NAD HEENT: PERRLA, sclera anicteric, oral pharynx no lesions Neck: no nodes, no JVD, supple, full ROM Respiratory: no wheezing, no rales, no rhonchi, clear to auscultation bilateral S1, S2 Cardiovascular: RRR, no significant murmur, no rub, gallop Gastrointestinal: soft, non-tender, no distention, positive bowel sounds Musculoskeletal: no edema, pulses present Neurological: normal sensation, moves all 4 limbs Psychiatric: A&O x 3 Skin: normal turgor, cap refill <2 seconds Dx/Plan (1) Atrial fibrillation with RVR Code(s): I48.91 - UNSPECIFIED ATRIAL FIBRILLATION Status: Acute Comment: Converted to SR, start Amiodarone 400mg BID, d/c Amiodarone gtt, consider OAC option, Cardiology consult appreciated (2) NSTEMI (non-ST elevated myocardial infarction) Code(s): I21.4 - NON-ST ELEVATION (NSTEMI) MYOCARDIAL INFARCTION Status: Acute Comment: Appears to be Type II, Cardiology consultation, ASA (3) Acute respiratory failure with hypoxia Code(s): J96.01 - ACUTE RESPIRATORY FAILURE WITH HYPOXIA Status: Acute Comment: Suspect multifactorial including CHF and NSTEMI, extubated today, continue general pulmonary support (4) Acute CHF (congestive heart failure) Code(s): I50.9 - HEART FAILURE, UNSPECIFIED Status: Acute Comment: Continue Lasix 40mg IV daily, appears systolic given EF 30%, Cardiology consulted, may need LifeVest prior to d/c (5) Acute kidney injury superimposed on CKD Code(s): N17.9 - ACUTE KIDNEY FAILURE, UNSPECIFIED; N18.9 - CHRONIC KIDNEY DISEASE, UNSPECIFIED Status: Acute Comment: Avoid nephrotoxic meds and limit contrast exposure, serial creatinine monitoring, mild improvement (6) Lactic acidosis Code(s): E87.2 - ACIDOSIS Status: Acute Comment: Secondary to respiratory failure, improving (7) Cardiomyopathy Code(s): I42.9 - CARDIOMYOPATHY, UNSPECIFIED Status: Acute Qualifiers: Cardiomyopathy type: dilated Qualified Code(s): I42.0 - Dilated cardiomyopathy Comment: Suspect multifactorial, continue Coreg, ASA, Hydralazine, Nitrates, Lasix, LifeVest application prior to d/c - Plan plan discussed w/ family, PT/OT, social service manager, out of bed/ambulate, DVT proph w/SCDs Stable currently -: D/C Augmentin -: Continue Coreg, ASA, Hydralazine, Nitrates -: LifeVest application prior to d/c -: OOB/ambulate * AM lab: BMP
--- NOTE | 2019-02-27 18:55 | PDOC.CTH ---
Cardiology Progress Note - Subjective Doing well. No chest pain. Still gets SOB when lying flat. - Objective Vital Signs Temp Pulse Pulse Pulse Resp BP BP 02/27/19 15:29 97.6 F 64 16 02/27/19 11:50 02/27/19 11:36 97.5 F L 67 16 02/27/19 10:25 64 72 115/51 L 02/27/19 08:53 74 156/84 H 02/27/19 08:00 02/27/19 07:59 97.9 F 74 16 BP BP Pulse Ox 02/27/19 15:29 143/70 H 97 02/27/19 11:50 102/55 L 02/27/19 11:36 92/50 L 97 02/27/19 10:25 123/66 02/27/19 08:53 02/27/19 08:00 94 L 02/27/19 07:59 156/84 H 94 L Weight 151 lb 3.794 oz 02/26/19 02/27/19 02/28/19 06:59 06:59 06:59 Intake Total 1525 290 560 Output Total 1735 800 Balance -210 -510 560 - Physical Examination General/Neuro: alert & oriented x3, NAD Neck: no JVD present Lungs: CTA, unlabored respirations Heart: RRR Abdomen: NT/ND Extremities: other: (no edema) - Telemetry Telemetry Rhythm: NSR - Labs Result Diagrams: 02/25/19 08:20 02/27/19 04:25 Troponin/CKMB CK-MB (CK-2) 2.4 ng/mL (0-6.6) 02/23/19 21:06 Troponin I 3.037 ng/mL (< 0.028) H* 02/24/19 06:30 - Assessment/Plan 1. New onset dilated CM EF at 30-35% 2. Acute on chronic systolic heart failure. 3. Paroxysmal afib, new onset. PLAN: - Awaiting lifevest placement. - Continue amiodarone load at 400 mg BID for 7 days then 200 mg diaily. - Continue BB/hydralazine and nitrate. - No ACEI/ARB due to renal dysfunction. - Will start full antoicoagulation with SQ lovenox.
[2019-02-28 05:46] LABS: Anion Gap 14 mmol/L (10-20); BUN (Urea Nitrogen) 39 mg/dL (9.8-20.1); Calc. Creatinine Clearance 19 mL/min (70-130); Calcium 8.4 mg/dL (7.8-10.44); Carbon Dioxide 23 mmol/L (23-31); Chloride 101 mmol/L (98-107); Estimated GFR-MDRD 19; Glucose 104 mg/dL (83-110); Magnesium 1.5 mg/dL (1.6-2.6); Potassium 3.4 mmol/L (3.5-5.1); Sodium 135 mmol/L (136-145)
[2019-02-28] MEDS: Furosemide 40 MG/4 ML VIAL SLOW IVP SCH ×2 (06:23→15:12)
[2019-02-28] MEDS: Isosorbide Dinitrate 5 MG TAB PO SCH ×2 (08:54→22:39)
[2019-02-28] MEDS: Oxybutynin ER 5 MG TAB PO SCH (08:55)
[2019-02-28] MEDS: hydrALAZINE 10 MG TAB PO SCH ×2 (08:55→22:39)
[2019-02-28] MEDS: Aspirin 325 MG TAB PO SCH (08:56)
[2019-02-28] MEDS: Amiodarone 200 MG TAB PO SCH ×2 (08:56→22:39)
[2019-02-28] MEDS: Carvedilol 3.125 MG TAB PO SCH ×2 (08:56→18:12)
[2019-02-28] MEDS ORDERED: Enoxaparin Sodium 60 MG/0.6 ML SYRINGE SC SCH (09:00)
[2019-02-28] MEDS ORDERED: Magnesium 2 GM/50 ML 2 GM in Premix Bag 1 BAG IVPB SCH (13:30)
--- NOTE | 2019-02-28 13:30 | PDOC.PN ---
- Subjective Encounter Start Date: 02/28/19 Encounter Start Time: 13:30 Subjective: f/u for ICM, CHF on IV Lasix. Feels better overall. Awaiting LifeVest -: application. - Objective MAR Reviewed: Yes Vital Signs & Weight: Vital Signs (12 hours) Temp Pulse Pulse Resp BP BP BP 02/28/19 11:20 98.1 F 66 20 117/44 L 02/28/19 09:19 65 126/70 02/28/19 08:55 75 137/60 02/28/19 08:00 02/28/19 07:30 98.0 F 75 20 155/62 H 02/28/19 03:31 97.7 F 72 16 149/64 H Pulse Ox Pulse Ox 02/28/19 11:20 95 02/28/19 09:19 96 02/28/19 08:55 02/28/19 08:00 95 02/28/19 07:30 95 02/28/19 03:31 96 Weight Weight 151 lb 3.794 oz Most Recent Monitor Data Heart Rate from ECG 123 NIBP 119/89 NIBP BP-Mean 99 Respiration from ECG 27 SpO2 97 I&O: 02/27/19 02/28/19 03/01/19 06:59 06:59 06:59 Intake Total 290 560 Output Total 800 Balance -510 560 Result Diagrams: 02/25/19 08:20 03/01/19 05:00 Additional Labs: Microbiology 02/23/19 23:41 Urine lopez catheter Urine Culture - Final Gram Negative Madhav Gram Negative Madhav#2 02/23/19 21:41 Venous blood - Right Arm Blood Culture - Preliminary NO GROWTH AT 48 HOURS 02/23/19 21:35 Venous blood - Right Hand Blood Culture - Preliminary NO GROWTH AT 48 HOURS Laboratory Tests 02/22/14 02/22/19 02/23/19 06:16 11:50 21:06 WBC 19.9 H Hgb 11.2 L Potassium Creatinine 1.19 H 2.01 H Magnesium Troponin I B-Natriuretic Peptide Triglycerides Cholesterol LDL Cholesterol, Calc HDL Cholesterol TSH 3rd Generation 02/23/19 02/23/19 02/23/19 21:06 21:06 21:06 WBC Hgb Potassium 3.9 Creatinine 2.40 H Magnesium Troponin I 0.153 H B-Natriuretic Peptide 1985.1 H Triglycerides Cholesterol LDL Cholesterol, Calc HDL Cholesterol TSH 3rd Generation 02/24/19 02/24/19 02/24/19 00:15 06:30 06:30 WBC Hgb Potassium Creatinine Magnesium Troponin I 0.467 H* 3.037 H* B-Natriuretic Peptide Triglycerides Cholesterol LDL Cholesterol, Calc HDL Cholesterol TSH 3rd Generation 1.4479 02/26/19 02/27/19 05:29 04:25 WBC Hgb Potassium 3.6 Creatinine 2.21 H Magnesium 1.5 L 1.5 L Troponin I B-Natriuretic Peptide Triglycerides 93 Cholesterol 188 LDL Cholesterol, Calc 128 HDL Cholesterol 41 TSH 3rd Generation EKG Reviewed by me: Yes (Tele - SR) Phys Exam - Physical Examination Constitutional: NAD HEENT: PERRLA, sclera anicteric, oral pharynx no lesions Neck: no nodes, no JVD, supple, full ROM few basilar crackles Respiratory: no wheezing S1, S2 Cardiovascular: RRR, no significant murmur, no rub, gallop Gastrointestinal: soft, non-tender, no distention, positive bowel sounds Musculoskeletal: no edema, pulses present Neurological: normal sensation, moves all 4 limbs Psychiatric: A&O x 3 Skin: normal turgor, cap refill <2 seconds Dx/Plan (1) Atrial fibrillation with RVR Code(s): I48.91 - UNSPECIFIED ATRIAL FIBRILLATION Status: Acute Comment: Converted to SR, start Amiodarone 400mg BID, d/c Amiodarone gtt, continue Eliquis 2.5mg BID, Cardiology consult appreciated (2) NSTEMI (non-ST elevated myocardial infarction) Code(s): I21.4 - NON-ST ELEVATION (NSTEMI) MYOCARDIAL INFARCTION Status: Acute Comment: Appears to be Type II, Cardiology consultation, ASA (3) Acute respiratory failure with hypoxia Code(s): J96.01 - ACUTE RESPIRATORY FAILURE WITH HYPOXIA Status: Acute Comment: Suspect multifactorial including CHF and NSTEMI, extubated today, continue general pulmonary support (4) Acute CHF (congestive heart failure) Code(s): I50.9 - HEART FAILURE, UNSPECIFIED Status: Acute Comment: Continue Lasix 40mg IV BID, appears systolic given EF 30%, Cardiology consulted, may need LifeVest prior to d/c (5) Acute kidney injury superimposed on CKD Code(s): N17.9 - ACUTE KIDNEY FAILURE, UNSPECIFIED; N18.9 - CHRONIC KIDNEY DISEASE, UNSPECIFIED Status: Acute Comment: Avoid nephrotoxic meds and limit contrast exposure, serial creatinine monitoring, worsening (6) Lactic acidosis Code(s): E87.2 - ACIDOSIS Status: Acute Comment: Secondary to respiratory failure, improving (7) Cardiomyopathy Code(s): I42.9 - CARDIOMYOPATHY, UNSPECIFIED Status: Acute Qualifiers: Cardiomyopathy type: dilated Qualified Code(s): I42.0 - Dilated cardiomyopathy Comment: Suspect multifactorial, continue Coreg, ASA, Hydralazine, Nitrates, Lasix, LifeVest application prior to d/c - Plan PT/OT, services mgr, out of bed/ambulate, DVT proph w/SCDs Stable currently -: Magnesium Sulfate 2gm IV x 1 dose -: KCL supplementation -: LifeVest application pending -: AM lab: BMP, Mg++ * .
[2019-02-28] MEDS ORDERED: Potassium Chloride 20 MEQ TAB PO SCH (13:45)
--- NOTE | 2019-02-28 18:08 | PDOC.CTH ---
Cardiology Progress Note - Subjective No new issues. Doing better. - Objective Vital Signs Temp Pulse Pulse Resp BP BP BP 02/28/19 15:10 98.2 F 69 20 148/66 H 02/28/19 11:20 98.1 F 66 20 117/44 L 02/28/19 09:19 65 126/70 02/28/19 08:55 75 137/60 02/28/19 08:00 02/28/19 07:30 98.0 F 75 20 155/62 H Pulse Ox Pulse Ox 02/28/19 15:10 96 02/28/19 11:20 95 02/28/19 09:19 96 02/28/19 08:55 02/28/19 08:00 95 02/28/19 07:30 95 Weight 151 lb 3.794 oz 02/27/19 02/28/19 03/01/19 06:59 06:59 06:59 Intake Total 290 560 Output Total 800 Balance -510 560 - Physical Examination General/Neuro: alert & oriented x3, NAD Neck: no JVD present Lungs: CTA, unlabored respirations Heart: RRR Abdomen: NT/ND Extremities: other: (no edema) - Telemetry Telemetry Rhythm: NSR - Labs Result Diagrams: 02/25/19 08:20 02/28/19 04:56 Troponin/CKMB CK-MB (CK-2) 2.4 ng/mL (0-6.6) 02/23/19 21:06 Troponin I 3.037 ng/mL (< 0.028) H* 02/24/19 06:30 - Assessment/Plan 1. New onset dilated CM EF at 30-35% 2. Acute on chronic systolic heart failure. 3. Paroxysmal afib, new onset. PLAN: - Awaiting lifevest placement. - Continue amiodarone load at 400 mg BID for 6 days then 200 mg diaily. - Continue BB/hydralazine and nitrate. - No ACEI/ARB due to renal dysfunction. - Will switch lovenox to Eliquis 2.5 mg BID. - Replace K.
[2019-03-01 05:56] LABS: Anion Gap 16 mmol/L (10-20); BUN (Urea Nitrogen) 50 mg/dL (9.8-20.1); Calc. Creatinine Clearance 16 mL/min (70-130); Calcium 9.1 mg/dL (7.8-10.44); Carbon Dioxide 23 mmol/L (23-31); Chloride 102 mmol/L (98-107); Estimated GFR-MDRD 16; Glucose 101 mg/dL (83-110); Sodium 137 mmol/L (136-145)
[2019-03-01] MEDS: Furosemide 40 MG/4 ML VIAL SLOW IVP SCH (07:30)
[2019-03-01] MEDS ORDERED: Potassium Chloride 20 MEQ TAB PO SCH (08:00)
[2019-03-01] MEDS: Apixaban 2.5 MG TAB PO SCH ×2 (08:32→20:42)
[2019-03-01] MEDS: Isosorbide Dinitrate 5 MG TAB PO SCH ×2 (08:33→20:42)
[2019-03-01] MEDS: Oxybutynin ER 5 MG TAB PO SCH (08:33)
[2019-03-01] MEDS: Aspirin 325 MG TAB PO SCH (08:34)
[2019-03-01] MEDS: hydrALAZINE 10 MG TAB PO SCH ×2 (08:34→20:41)
[2019-03-01] MEDS: Carvedilol 3.125 MG TAB PO SCH ×2 (08:35→16:49)
[2019-03-01] MEDS: Amiodarone 200 MG TAB PO SCH ×2 (08:35→20:41)
--- NOTE | 2019-03-01 17:18 | PDOC.PN ---
- Subjective Encounter Start Date: 03/01/19 Encounter Start Time: 17:15 Subjective: f/u for ICM with LifeVest application. No new complaints. - Objective MAR Reviewed: Yes Vital Signs & Weight: Vital Signs (12 hours) Temp Pulse Pulse Resp BP BP BP 03/01/19 11:56 97.8 F 58 L 20 03/01/19 09:00 67 157/70 H 03/01/19 08:34 68 156/68 H 03/01/19 08:00 98.2 F 68 20 156/68 H BP Pulse Ox 03/01/19 11:56 133/73 97 03/01/19 09:00 03/01/19 08:34 03/01/19 08:00 96 Weight Weight 151 lb 3.794 oz Most Recent Monitor Data Heart Rate from ECG 123 NIBP 119/89 NIBP BP-Mean 99 Respiration from ECG 27 SpO2 97 I&O: 02/28/19 03/01/19 03/02/19 06:59 06:59 06:59 Intake Total 560 638 Output Total 200 Balance 560 438 Result Diagrams: 02/25/19 08:20 03/01/19 05:00 Additional Labs: Microbiology 02/23/19 23:41 Urine lopez catheter Urine Culture - Final Gram Negative Madhav Gram Negative Madhav#2 02/23/19 21:41 Venous blood - Right Arm Blood Culture - Preliminary NO GROWTH AT 48 HOURS 02/23/19 21:35 Venous blood - Right Hand Blood Culture - Preliminary NO GROWTH AT 48 HOURS Laboratory Tests 02/22/14 02/22/19 02/23/19 06:16 11:50 21:06 WBC 19.9 H Hgb 11.2 L Potassium Creatinine 1.19 H 2.01 H Magnesium Troponin I B-Natriuretic Peptide Triglycerides Cholesterol LDL Cholesterol, Calc HDL Cholesterol TSH 3rd Generation 02/23/19 02/23/19 02/23/19 21:06 21:06 21:06 WBC Hgb Potassium 3.9 Creatinine 2.40 H Magnesium Troponin I 0.153 H B-Natriuretic Peptide 1985.1 H Triglycerides Cholesterol LDL Cholesterol, Calc HDL Cholesterol TSH 3rd Generation 02/24/19 02/24/19 02/24/19 00:15 06:30 06:30 WBC Hgb Potassium Creatinine Magnesium Troponin I 0.467 H* 3.037 H* B-Natriuretic Peptide Triglycerides Cholesterol LDL Cholesterol, Calc HDL Cholesterol TSH 3rd Generation 1.4479 02/26/19 02/27/19 05:29 04:25 WBC Hgb Potassium 3.6 Creatinine 2.21 H Magnesium 1.5 L 1.5 L Troponin I B-Natriuretic Peptide Triglycerides 93 Cholesterol 188 LDL Cholesterol, Calc 128 HDL Cholesterol 41 TSH 3rd Generation EKG Reviewed by me: Yes (Tele - SR) Phys Exam - Physical Examination Constitutional: NAD HEENT: PERRLA, sclera anicteric, oral pharynx no lesions Neck: no nodes, no JVD, supple, full ROM Respiratory: no wheezing, no rales, no rhonchi, clear to auscultation bilateral S1, S2 Cardiovascular: RRR, no significant murmur, no rub, gallop Gastrointestinal: soft, non-tender, no distention, positive bowel sounds Musculoskeletal: no edema, pulses present Neurological: normal sensation, moves all 4 limbs Psychiatric: A&O x 3 Skin: normal turgor, cap refill <2 seconds Dx/Plan (1) Atrial fibrillation with RVR Code(s): I48.91 - UNSPECIFIED ATRIAL FIBRILLATION Status: Acute Comment: Converted to SR, start Amiodarone 400mg BID, d/c Amiodarone gtt, continue Eliquis 2.5mg BID, Cardiology consult appreciated (2) NSTEMI (non-ST elevated myocardial infarction) Code(s): I21.4 - NON-ST ELEVATION (NSTEMI) MYOCARDIAL INFARCTION Status: Acute Comment: Appears to be Type II, Cardiology consultation, ASA (3) Acute respiratory failure with hypoxia Code(s): J96.01 - ACUTE RESPIRATORY FAILURE WITH HYPOXIA Status: Acute Comment: Suspect multifactorial including CHF and NSTEMI, extubated today, continue general pulmonary support (4) Acute CHF (congestive heart failure) Code(s): I50.9 - HEART FAILURE, UNSPECIFIED Status: Acute Comment: Continue Lasix 40mg IV BID, appears systolic given EF 30%, Cardiology consulted, may need LifeVest prior to d/c (5) Acute kidney injury superimposed on CKD Code(s): N17.9 - ACUTE KIDNEY FAILURE, UNSPECIFIED; N18.9 - CHRONIC KIDNEY DISEASE, UNSPECIFIED Status: Acute Comment: Avoid nephrotoxic meds and limit contrast exposure, serial creatinine monitoring, worsening (6) Lactic acidosis Code(s): E87.2 - ACIDOSIS Status: Acute Comment: Secondary to respiratory failure, improving (7) Cardiomyopathy Code(s): I42.9 - CARDIOMYOPATHY, UNSPECIFIED Status: Acute Qualifiers: Cardiomyopathy type: dilated Qualified Code(s): I42.0 - Dilated cardiomyopathy Comment: Suspect multifactorial, continue Coreg, ASA, Hydralazine, Nitrates, Lasix, LifeVest application prior to d/c - Plan PT/OT, 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
--- NOTE | 2019-03-01 19:09 | PDOC.CTH ---
Cardiology Progress Note - Subjective Doing well. No chest pain. - Objective Vital Signs Temp Pulse Pulse Resp BP BP BP 03/01/19 11:56 97.8 F 58 L 20 03/01/19 09:00 67 157/70 H 03/01/19 08:34 68 156/68 H 03/01/19 08:00 98.2 F 68 20 156/68 H BP Pulse Ox 03/01/19 11:56 133/73 97 03/01/19 09:00 03/01/19 08:34 03/01/19 08:00 96 Weight 151 lb 3.794 oz 02/28/19 03/01/19 03/02/19 06:59 06:59 06:59 Intake Total 560 638 Output Total 200 Balance 560 438 - Physical Examination General/Neuro: alert & oriented x3, NAD Neck: no JVD present Lungs: CTA, unlabored respirations Heart: RRR Abdomen: NT/ND Extremities: other: (no edema) - Telemetry Telemetry Rhythm: NSR - Labs Result Diagrams: 02/25/19 08:20 03/01/19 05:00 Troponin/CKMB CK-MB (CK-2) 2.4 ng/mL (0-6.6) 02/23/19 21:06 Troponin I 3.037 ng/mL (< 0.028) H* 02/24/19 06:30 - Assessment/Plan 1. New onset dilated CM EF at 30-35% 2. Acute on chronic systolic heart failure. 3. Paroxysmal afib, new onset. PLAN: - Lifevest in place. - Continue amiodarone load at 400 mg BID for 5 days then 200 mg daily. - Continue BB/hydralazine and nitrate. - No ACEI/ARB due to renal dysfunction. - On Eliquis 2.5 mg BID.
[2019-03-02 05:52] LABS: Anion Gap 14 mmol/L (10-20); BUN (Urea Nitrogen) 54 mg/dL (9.8-20.1); Calc. Creatinine Clearance 16 mL/min (70-130); Calcium 8.8 mg/dL (7.8-10.44); Carbon Dioxide 25 mmol/L (23-31); Chloride 103 mmol/L (98-107); Estimated GFR-MDRD 16; Glucose 101 mg/dL (83-110); Magnesium 2.1 mg/dL (1.6-2.6); Potassium 4.4 mmol/L (3.5-5.1); Sodium 138 mmol/L (136-145)
[2019-03-02 07:50] VITALS: TEMP 98.3
[2019-03-02] MEDS ORDERED: Potassium Chloride 20 MEQ TAB PO SCH (08:00)
--- NOTE | 2019-03-02 09:11 | DIS ---
DATE OF ADMISSION: 02/24/2019 DATE OF DISCHARGE: 03/02/2019 PRIMARY CARE PHYSICIAN: Dr. Cornell DISCHARGE DIAGNOSES: 1. Acute respiratory failure with hypoxia. 2. Acute encephalopathy. 3. Acute on chronic systolic heart failure. 4. New onset cardiomyopathy with ejection fraction of 30 to 35. 5. Paroxysmal atrial fibrillation with rapid ventricular response. 6. Moderate mitral regurgitation. 7. Moderate aortic insufficiency. 8. Severe tricuspid regurgitation. 9. Hypomagnesemia. 10. Bilateral pleural effusion. 11. Acute on chronic kidney failure. 12. Acute non-ST elevation myocardial infarction. 13. Lactic acidosis. 14. Metabolic acidosis. 15. Possible urinary tract infection. 16. Left distal radius fracture. 17. Physical deconditioning. 18. Hypertension. 19. Peripheral artery disease. 20. Dyslipidemia. 21. Hypokalemia. CONSULTS: 1. Pulmonary and Critical Care. 2. Cardiology. HOSPITAL COURSE: An 83-year-old patient with known history of hyperlipidemia, hypertension, and peripheral artery disease, who was admitted due to acute onset of unresponsiveness superimposed in the context of progressive shortness of breath associated with paroxysmal nocturnal dyspnea and generalized leg swelling. The patient was found to be in acute respiratory failure with hypoxia and was subsequently intubated. Mental status improved and the patient was subsequently extubated. Further evaluation revealed acute on chronic renal failure, metabolic acidosis, elevated troponin consistent with acute non-ST elevation myocardial infarction. The patient also was evaluated with CT of the chest, which showed bilateral pleural effusion. The patient also was evaluated with echocardiogram, which showed moderately decreased systolic function with ejection fraction of 30 to 35 as well as moderate mitral regurgitation as well as aortic insufficiency and severe tricuspid regurgitation. Impression of new onset cardiomyopathy and acute on chronic systolic heart failure was made. The patient was treated with diuretics with improvement in renal function. Creatinine improved initially to a kike of 2.2, but later started trending up with continuation of diuretics, necessitating discontinuation of diuretics later on. Hospital course also was complicated by development of paroxysmal atrial fibrillation with rapid ventricular response. Cardiology was consulted and the patient was started on amiodarone as well as anticoagulation and she later converted to sinus rhythm. Cardiac catheterization was recommended for evaluation of non-ST elevation myocardial infarction as well as new onset cardiomyopathy, but the patient declined these. Given new onset cardiomyopathy with EF of 30 to 35, AICD placement was discontinued, was discussed with the patient, with Cardiology as well as LifeVest and the patient elected to be on LifeVest for now and that was subsequently fitted. The patient made significant improvement and oxygen was subsequently weaned off and she was ambulating. However, the patient was found to have physical deconditioning, which was not helped by the fact that she have recent left wrist fracture, status post open reduction and internal fixation. She was deemed fit for discharge with home health and was subsequently discharged home. Of note, home medications were adjusted with discontinuation of RAAS levar due to renal failure. The patient is to follow up with allied health professional in 1 to 2 weeks. She is also to follow up with service attendant cafeteria in 1 week. Also to follow up with Orthopedics as instructed and then primary care physician in 1 week. PHYSICAL EXAMINATION: VITAL SIGNS: Temperature 98.3, pulse 65, respiratory rate 18, SpO2 of 95% on room air, and blood pressure 128/66. GENERAL: Healthy-looking elderly female, in no obvious distress. Afebrile. Anicteric. Acyanotic. HEENT: Normocephalic, atraumatic. Pupils are equal and reacting to light. Oral mucosa is moist. CARDIOVASCULAR: Regular rhythm and rate with normal heart sounds 1 and 2. Systolic murmur was appreciated over the precordium. RESPIRATORY: Fair air entry bilaterally with no obvious crackle or rhonchi or use of accessory muscles. GASTROINTESTINAL: Full, soft, nontender, and nondistended with normal bowel sounds. EXTREMITIES: Grossly normal looking, atraumatic, with no obvious edema, erythema, or cyanosis. NEUROLOGIC: Conscious, alert, oriented x3 with appropriate mental status. Cranial nerves II through XII are intact. EXTREMITIES: Left hand wrist and fall and cover with splint and dressing. DISCHARGE CONDITION: Improved and stable. FOLLOWUP: As detailed above in history of hospital course. DISCHARGE MEDICATIONS: 1. Acetaminophen with codeine 12.5 mL q.6h p.r.n. for pain. 2. Amiodarone 400 mg p.o. b.i.d. 3. Eliquis 2.5 mg p.o. b.i.d. 4. Aspirin 325 mg p.o. daily. 5. Lipitor 40 mg p.o. daily. 6. Coreg 3.125 mg p.o. b.i.d. 7. Lasix 40 mg daily to start on March 05, 2019. 8. Hydralazine 10 mg p.o. b.i.d. 9. Isosorbide dinitrate 10 mg p.o. b.i.d. 10. Oxybutynin 10 mg p.o. daily. TIME SPENT: Discharge took more than 40 minutes. Job ID: [id number]
[2019-03-02] MEDS: Aspirin 325 MG TAB PO SCH (09:44)
[2019-03-02] MEDS: Apixaban 2.5 MG TAB PO SCH (09:44)
[2019-03-02] MEDS: hydrALAZINE 10 MG TAB PO SCH (09:45)
[2019-03-02] MEDS: Amiodarone 200 MG TAB PO SCH (09:45)
[2019-03-02] MEDS: Carvedilol 3.125 MG TAB PO SCH (09:45)
[2019-03-02] MEDS: Oxybutynin ER 5 MG TAB PO SCH (09:46)
[2019-03-02] MEDS: Isosorbide Dinitrate 5 MG TAB PO SCH (09:46)
[2019-03-02 09:53] VITALS: BP 144/72
== END 2019-03-02 11:30 | disposition home health service (06) | DRG 208 ==
LOC: ERS 20:58 → CCU 02-24 00:01 → 2SE 02-25 18:49
PROVIDERS: ADMIT Hospitalist; ATTEND Hospitalist
PROC: 5A1945Z Respiratory Ventilation, 24-96 Consecutive Hours (ICD-10-PCS; principal; 2019-02-24)
PROC: 0BH17EZ Insertion of Endotracheal Airway into Trachea, Via Natural or Artificial Opening (ICD-10-PCS; 2019-02-24)
DX: J96.01 Acute respiratory failure with hypoxia (principal); J18.9 Pneumonia, unspecified organism; I21.4 Non-ST elevation (NSTEMI) myocardial infarction; I50.23 Acute on chronic systolic (congestive) heart failure; E87.2 Acidosis; N17.9 Acute kidney failure, unspecified; I13.0 Hypertensive heart and chronic kidney disease with heart failure and stage 1 through stage 4 chronic kidney disease, or unspecified chronic kidney disease; N18.4 Chronic kidney disease, stage 4 (severe); I42.0 Dilated cardiomyopathy; G93.40 Encephalopathy, unspecified; N39.0 Urinary tract infection, site not specified; E78.5 Hyperlipidemia, unspecified; I10 Essential (primary) hypertension; I34.0 Nonrheumatic mitral (valve) insufficiency; I48.0 Paroxysmal atrial fibrillation; I73.9 Peripheral vascular disease, unspecified; I35.1 Nonrheumatic aortic (valve) insufficiency; E87.6 Hypokalemia; E83.42 Hypomagnesemia; Z90.49 Acquired absence of other specified parts of digestive tract; Z90.710 Acquired absence of both cervix and uterus; Z79.899 Other long term (current) drug therapy
CPT/HCPCS: 36415; 70450; 71045; 71275; 76000; 80048; 80053; 80061; 81003; 81015; 82553; 82805; 83605; 83690; 83735; 83880; 84100; 84443; 84484; 85025; 85379; 87040; 87086; 93005; 93010; 93306; 93798; 94002; 94003; 99213; A4306; C1713; G0463; J0282; J0690; J1100; J1160; J1650; J1940; J2001; J2250; J2405; J2543; J2704; J2795; J3010; J3370; J3475; J3490; J7050; J7070; Q9966

== ENCOUNTER 2019-07-24 09:54 | Outpatient (CLI) | payer MEDICARE, BC ==
--- NOTE | 2019-07-24 10:40 | RAD ---
2 VIEWS CHEST: Date: 07/24/19 COMPARISON: 02/23/19. HISTORY: Shortness of breath. FINDINGS: Cardiac silhouette appears enlarged. There is increased linear interstitial density with pulmonary hy perinflation, evidence of air trapping. No pneumothorax, pleural fluid, focal consolidation, or alveo lar edema. There is degenerative change involving bilateral acromioclavicular joints, right greater t lane left. IMPRESSION: Prominent cardiac silhouette. Increased linear interstitial density and pulmonary hyperinflation sugg esting COPD in the proper clinical setting. POS: TPC
== END 2019-07-24 09:55 | disposition home or self-care (01) ==
LOC: RAD 09:54
PROVIDERS: ATTEND Internal Medicine
DX: R06.00 Dyspnea, unspecified (principal); J98.4 Other disorders of lung
CPT/HCPCS: 71046

== ENCOUNTER 2019-08-23 07:28 | Outpatient (CLI) | payer MEDICARE, BC ==
--- NOTE | 2019-08-23 08:27 | CT ---
CT CHEST WITHOUT CONTRAST CLINICAL INDICATION: Hemoptysis. COMPARISON: CTA thorax on 02/23/2019 FINDINGS: Aorta: Limited evaluation without administration of intravenous contrast. Vascular calcifications are seen in the thoracic aorta. The thoracic aorta is normal in caliber. Prominent coronary artery calcifications are seen. Lungs: There has been resolution of the right pleural effusion with considerable decrease in left ple ural effusion with a tiny left pleural effusion and associated atelectasis seen on the current study. Pleural and parenchymal lung changes are seen in the superior aspect of each upper lobe and in the lung apices likely due to pleural and parenchymal scarring. Slight nodular peripherally located densities are seen in the upper lobes bilaterally which also may related to mild pleural and parenchymal scarring. Interstitial edema and groundglass densities seen within the lungs on the prior study have resolved. Linear scarring versus atelectasis is present at t he left lung base. Mediastinum: A trace pericardial effusion is present. The heart is mildly enlarged. Calcifications of the mitral valve annulus are seen. Lack of intravenous contrast does limit sensitivity for evaluation of the mediastinal structures; however, no definite enlarged lymph nodes are seen by CT si ze criteria. Vascular calcifications are seen in the carotid arteries bilaterally. Calcified right hilar lymph node is seen. Thyroid gland: Grossly normal nonenhanced CT appearance. Osseous structures: Multilevel degenerative changes are seen in the thoracic spine as well as visuali zed cervical spine. Chest wall: No abnormality visualized. Upper abdomen: A 1.6 cm hypodense lesion is seen in the midportion left kidney with smaller hypodense lesion seen in the anterior aspect midportion left kidney. Lobulated appearance of the anterior aspect right kidney is noted. This may represent normal renal parenchyma as the kidney is incompletel y visualized or evaluated on this exam. There is calcifications seen in the upper poles of each kidney which have a linear configuration and probably represent vascular calcifications as opposed to nonobstructing renal calculi. Multiple calcified granulomata are seen in the spleen. IMPRESSION: 1. Resolution of right pleural effusion with significant improvement in left pleural effusion, and on ly a tiny left pleural effusion persists. 2. Mild chronic lung changes. 3. Mild cardiomegaly. 4. Dense vascular calcifications involving the coronary arteries as well as the thoracic and visualiz ed abdominal aorta. 5. Hypodense left renal lesions with lobulated appearance of visualized kidneys bilaterally. There is a lobulated prominence involving the anterior aspect superior pole right kidney. This is probably related to normal renal parenchyma, but given that this is incompletely imaged or evaluated, renal so nogram is recommended for further evaluation. Renal sonogram can also be utilized to further characterize the hypodense left renal lesions.
== END 2019-08-23 07:29 | disposition home or self-care (01) ==
LOC: BICCT 07:28
PROVIDERS: ATTEND Internal Medicine
DX: R04.2 Hemoptysis (principal); J90 Pleural effusion, not elsewhere classified; I51.7 Cardiomegaly; I70.209 Unspecified atherosclerosis of native arteries of extremities, unspecified extremity; N28.9 Disorder of kidney and ureter, unspecified
CPT/HCPCS: 71250

== ENCOUNTER 2019-11-03 20:09 | Inpatient (IN) | payer MEDICARE, BC ==
[2019-11-03 20:42] LABS: #Eosinphils 0.1 thou/uL (0.0-0.7); #Lymphocytes 1.1 thou/uL (1.20-3.40); #Monocytes 0.8 thou/uL (0.11-0.59); #Neutrophils 7.4 thou/uL (1.40-6.50); %Basophils 0.2 % (0.0-1.0); %Eosinophils 0.7 % (0.0-10.0); %Lymphocytes 11.7 % (21.0-51.0); %Monocytes 8.6 % (0.0-10.0); %Neutrophils 78.7 % (42.0-75.0); Hemoglobin 11.4 g/dL (12.0-16.0); Mean Corpuscular HGB CONC 33.7 g/dL (32.0-36.0); Mean Corpuscular Hemoglobin 32.9 pg (27.0-31.0); Mean Corpuscular Volume 97.8 fL (78.0-98.0); Mean Platelet Volume 10.2 fL (7.4-10.4); Platelet Count 164 thou/uL (130-400); RBC Distribution Width 13.2 % (11.5-14.5); Red Blood Cell (RBC) Count 3.46 mill/uL (4.20-5.40); White Blood Cell (WBC) Count 9.4 thou/uL (4.8-10.8)
[2019-11-03 20:56] LABS: ALT (SGPT) 52 U/L (8-55); AST (SGOT) 67 U/L (5-34); Albumin 4.2 g/dL (3.4-4.8); Alkaline Phosphatase 104 U/L (40-110); Anion Gap 20 mmol/L (10-20); BUN (Urea Nitrogen) 48 mg/dL (9.8-20.1); Bilirubin, Total 0.9 mg/dL (0.2-1.2); Calc. Creatinine Clearance 0 mL/min (70-130); Carbon Dioxide 22 mmol/L (23-31); Chloride 100 mmol/L (98-107); Estimated GFR-MDRD 15; Globulin 3.5 g/dL (2.4-3.5); Glucose 178 mg/dL (83-110); Potassium 3.5 mmol/L (3.5-5.1); Protein, Total 7.7 g/dL (6.0-8.3); Sodium 138 mmol/L (136-145)
--- NOTE | 2019-11-03 20:56 | RAD ---
EXAM: XR Chest 1 View Portable PROVIDED CLINICAL HISTORY: Shortness of breath COMPARISON: 07/24/2019 FINDINGS: Cardiac silhouette remains enlarged. Right IJ dialysis catheter is noted with lead tips overlying exp ected location of SVC and cavoatrial junction. There is right perihilar airspace disease suspected. Lungs appear otherwise clear. No pleural fluid or pneumothorax apparent. IMPRESSION: 1. Cardiomegaly. 2. Right perihilar airspace disease. Correlate for pneumonia. Follow-up recommended.
[2019-11-03] MEDS ORDERED: cefTRIAXone\\ROCEPHIN 2 GM VIAL ONE (21:18)
[2019-11-03] MEDS ORDERED: Guaifenesin DM 100-10/5 ML UDCUP PO PRN (22:57)
[2019-11-03] MEDS ORDERED: Azithromycin 500 MG in Sodium Chloride 0.9% 250 ML 250 ML IVPB SCH (23:00)
[2019-11-03] MEDS ORDERED: Azithromycin 500 MG VIAL ONE (23:21)
[2019-11-03] MEDS ORDERED: Nitroglycerin 2% Ointment 1 INCH/1 GM Packet ONE (23:41)
[2019-11-03] MEDS ORDERED: Furosemide 40 MG/4 ML VIAL ONE (23:41)
[2019-11-03 23:42] LABS: CKMB 1.8 ng/mL (0-6.6)
[2019-11-03] MEDS ORDERED: Furosemide 20 MG TAB PO SCH (23:45)
[2019-11-04 02:46] VITALS: BMI 25.9
[2019-11-04 03:02] LABS: #Lymphocytes 0.6 thou/uL (1.20-3.40); #Monocytes 0.8 thou/uL (0.11-0.59); #Neutrophils 5.3 thou/uL (1.40-6.50); %Basophils 0.6 % (0.0-1.0); %Eosinophils 0.2 % (0.0-10.0); %Lymphocytes 8.3 % (21.0-51.0); %Monocytes 11.3 % (0.0-10.0); %Neutrophils 79.6 % (42.0-75.0); Hemoglobin 10.7 g/dL (12.0-16.0); Mean Corpuscular HGB CONC 34.1 g/dL (32.0-36.0); Mean Corpuscular Hemoglobin 33.3 pg (27.0-31.0); Mean Corpuscular Volume 97.7 fL (78.0-98.0); Mean Platelet Volume 9.7 fL (7.4-10.4); Platelet Count 135 thou/uL (130-400); RBC Distribution Width 13.3 % (11.5-14.5); White Blood Cell (WBC) Count 6.6 thou/uL (4.8-10.8)
[2019-11-04 03:27] LABS: Anion Gap 17 mmol/L (10-20); BUN (Urea Nitrogen) 44 mg/dL (9.8-20.1); Calc. Creatinine Clearance 16 mL/min (70-130); Calcium 8.5 mg/dL (7.8-10.44); Carbon Dioxide 24 mmol/L (23-31); Chloride 103 mmol/L (98-107); Estimated GFR-MDRD 17; Glucose 117 mg/dL (83-110); Potassium 3.5 mmol/L (3.5-5.1); Sodium 140 mmol/L (136-145)
[2019-11-04 03:37] LABS: Troponin I 1.154 ng/mL (< 0.028)
[2019-11-04] MEDS ORDERED: Enoxaparin Sodium 60 MG/0.6 ML SYRINGE SC SCH (04:15)
[2019-11-04] MEDS ORDERED: Aspirin 325 MG TAB PO SCH (04:15)
--- NOTE | 2019-11-04 04:31 | HP ---
CHIEF COMPLAINT: Shortness of breath and cough. HISTORY OF PRESENT ILLNESS: Ms. Yo is an 84-year-old female with past medical history of cardiomyopathy, ejection fraction 30% to 35%, chronic kidney disease, hypertension, hyperlipidemia, and among others, presents to the emergency room with cough and shortness of breath for the last few days. Symptoms got worse today. Started feeling weak and tired. The patient said that she has been having upper respiratory tract infection symptoms lately, and she was diagnosed with allergies. She denies fevers, chills, nausea, vomiting, or diarrhea. Workup in the emergency room including chest x-ray shows right perihilar airspace disease ? pneumonia. WBC count is 9.4, hemoglobin 11.4, and platelets 164. Electrolytes, BUN 48, creatinine 2.89, sodium was 138. Lactic acid is 1.9. BNP is elevated at 1879. Troponin 0.12. The patient denies chest pain. The patient was started on IV antibiotics in the emergency room. The patient is being admitted to the hospital for further management. PAST MEDICAL HISTORY: As mentioned above in History of Present Illness. PAST SURGICAL HISTORY: 1. Right lower extremity stent. 2. Appendectomy. 3. Partial hysterectomy. 4. Tonsillectomy. 5. Carotid surgery. 6. Right wrist surgery. SOCIAL HISTORY: Denies smoking or alcohol drinking. Lives with family at home. HOME MEDICATIONS: Please see home medication reconciliation form for updated medications. FAMILY HISTORY: Reviewed and noncontributory. ALLERGIES: NSAIDS. REVIEW OF SYSTEMS: Review of 14 systems negative except what is mentioned in History of Present Illness. PHYSICAL EXAMINATION: GENERAL: The patient is awake, alert, in mild respiratory distress. VITAL SIGNS: Blood pressure 178/81, pulse is 68, respiratory rate is 21, and pulse oximetry is 100% on 2 L/minute nasal cannula. HEAD AND NECK: Normocephalic, atraumatic. Neck is supple. CHEST: Few bibasilar crackles. HEART: Distant heart sounds. ABDOMEN: Soft, nontender. NEUROLOGIC: Awake, alert, and oriented x3. No focal deficits. PSYCH: Unable to assess. EXTREMITIES: No clubbing or cyanosis. GENITOURINARY: No suprapubic tenderness. No flank tenderness. MUSCULOSKELETAL: No joint deformity or tenderness. LABORATORY DATA: As mentioned above in History of Present Illness. IMAGING: Chest x-ray, as mentioned above in History of Present Illness. ASSESSMENT: 1. Pneumonia ? community acquired. 2. Congestive heart failure exacerbation ? 3. Cardiomyopathy. 4. Acute on chronic renal failure. 5. Hypertension. 6. Hyperlipidemia. PLAN: 1. Admit. 2. Telemonitoring. 3. Serial troponins. 4. IV antibiotics. Continue with ceftriaxone and doxycycline. 5. Continue with home diuresis. 6. Reconcile home medications. 7. DVT prophylaxis as appropriate. 8. Expected length of stay, 2 midnights or more. Job ID: [id number]
[2019-11-04 06:43] LABS: Troponin I 1.861 ng/mL (< 0.028)
[2019-11-04] MEDS ORDERED: Heparin 25,000 units/D5W 500 ML IVPB SCH (08:30)
[2019-11-04] MEDS ORDERED: Doxycycline 100 MG in Syringe 0 ML IVPB SCH (09:00)
[2019-11-04] MEDS ORDERED: Furosemide 20 MG TAB PO SCH (09:00)
[2019-11-04 09:10] LABS: Hemoglobin 10.4 g/dL (12.0-16.0); Platelet Count 140 thou/uL (130-400)
[2019-11-04] MEDS: Aspirin 81 mg Enteric Coated Tablet PO SCH (09:27)
[2019-11-04] MEDS: Famotidine/PF 20 mg/2ml Vial SLOW IVP SCH (09:28)
[2019-11-04] MEDS: Heparin 10,000 UNITS/ 10 ML VIAL SLOW IVP SCH (14:33)
[2019-11-04] MEDS: Nitroglycerin 2% Ointment 1 INCH/1 GM Packet TOP SCH ×2 (15:15→20:27)
[2019-11-04] MEDS: Furosemide 40 MG/4 ML VIAL SLOW IVP SCH (15:15)
--- NOTE | 2019-11-04 17:43 | PDOC.HOSPP ---
- Subjective Encounter Date: 11/04/19 Encounter Time: 15:00 Subjective: no chest pain or palp feels better is diuresing well is able to ambulate in room daughter in room - Objective Vital Signs & Weight: Vital Signs (12 hours) Temp Pulse Resp BP Pulse Ox 11/04/19 16:07 99.0 F 70 18 175/73 H 100 11/04/19 11:46 98.0 F 70 20 152/65 H 100 11/04/19 07:54 98.4 F 67 20 165/72 H 100 Weight Weight 142 lb I&O: 11/03/19 11/04/19 11/05/19 06:59 06:59 06:59 Intake Total 120 Balance 120 Result Diagrams: 11/04/19 08:43 11/04/19 02:53 Hospitalist ROS - Medication Medications: Active Medications Generic Name Dose Route Start Last Admin Trade Name Freq PRN Reason Stop Dose Admin Aspirin 81 mg 11/04/19 09:00 11/04/19 09:27 Ecotrin PO 81 mg DAILY DANIELLE Administration Famotidine 20 mg 11/04/19 09:00 11/04/19 09:28 Pepcid SLOW IVP 20 mg 0900 DANIELLE Administration Furosemide 40 mg 11/04/19 14:00 11/04/19 15:15 Lasix SLOW IVP 40 mg 0600,1400 DANIELLE Administration Heparin Sodium (Porcine) 0 units 11/04/19 08:30 11/04/19 14:33 Heparin 1,000 Units/Ml (10 Ml) SLOW IVP 3,873 unit ASDIR DANIELLE Administration Protocol Doxycycline Hyclate 100 mg/ 100 mls @ 100 mls/hr 11/04/19 01:00 11/04/19 15: 15 Sodium Chloride IVPB 100 mls 0100,1300 DANIELLE Administration Heparin Sodium/Dextrose 500 mls @ 0 mls/hr 11/04/19 08:30 11/04/19 14:34 Heparin 25,000 Units/D5w 500 Ml IVPB 500 mls INF DANIELLE Administration Protocol Per Protocol Nitroglycerin 0.5 inch 11/04/19 14:00 11/04/19 15:15 Nitro-Bid 2% Ointment TOP 0.5 inch Q8HR DANIELLE Administration Sodium Chloride 10 ml 11/04/19 09:00 11/04/19 09:30 Flush - Normal Saline IVF 10 ml Q12HR DANIELLE Administration - Exam General Appearance: awake alert Eye: PERRL, anicteric sclera ENT: no oropharyngeal lesions, moist mucosa Neck: supple, no JVD Heart: RRR, no murmur Respiratory: no wheezes, no ronchi, rales Gastrointestinal: soft, non-tender, non-distended, normal bowel sounds Extremities: no cyanosis, no edema Neurological: cranial nerve grossly intact, no focal deficits Psychiatric: normal affect, A&O x 3 Hosp A/P (1) Acute CHF (congestive heart failure) Code(s): I50.9 - HEART FAILURE, UNSPECIFIED Status: Acute Qualifiers: Heart failure type: systolic Qualified Code(s): I50.21 - Acute systolic ( congestive) heart failure (2) PNA (pneumonia) Code(s): J18.9 - PNEUMONIA, UNSPECIFIED ORGANISM Status: Suspected (3) Type 2 AMI (acute myocardial infarction) Code(s): I21.A1 - MYOCARDIAL INFARCTION TYPE 2 Status: Acute (4) Paroxysmal A-fib Code(s): I48.0 - PAROXYSMAL ATRIAL FIBRILLATION Status: Chronic (5) PVD (peripheral vascular disease) Code(s): I73.9 - PERIPHERAL VASCULAR DISEASE, UNSPECIFIED Status: Chronic (6) CKD (chronic kidney disease) stage 4, GFR 15-29 ml/min Code(s): N18.4 - CHRONIC KIDNEY DISEASE, STAGE 4 (SEVERE) Status: Chronic (7) Dyslipidemia Code(s): E78.5 - HYPERLIPIDEMIA, UNSPECIFIED Status: Chronic (8) HTN (hypertension) Code(s): I10 - ESSENTIAL (PRIMARY) HYPERTENSION Status: Chronic Qualifiers: Hypertension type: essential hypertension Qualified Code(s): I10 - Essential (primary) hypertension (9) Acute kidney injury superimposed on CKD Code(s): N17.9 - ACUTE KIDNEY FAILURE, UNSPECIFIED; N18.9 - CHRONIC KIDNEY DISEASE, UNSPECIFIED Status: Acute (10) Cardiomyopathy Code(s): I42.9 - CARDIOMYOPATHY, UNSPECIFIED Status: Chronic Qualifiers: Cardiomyopathy type: dilated - Plan gentle diuresis doubt if its pna, is on zithromax and ceftriaxone, will switch to oral agents or dc in am to see her in am continue aspirin, heparin iv per [facility] protocol no clinical or ekg evidence of acute MS, troponin elevation likely due to stress from LV stretching from chf exac and type 2 MS hemostable d/w patient and daughter at bedside.
[2019-11-04] MEDS ORDERED: cefTRIAXone\\ROCEPHIN 1 GM in Sodium Chloride 0.9% 100 ML IVPB SCH (21:00)
[2019-11-04 21:14] LABS: PTT 246.9 SEC (22.9-36.1)
[2019-11-04 22:49] LABS: PTT 197.6 SEC (22.9-36.1)
[2019-11-05] MEDS: Acetaminophen 325 MG TAB PO PRN (03:51)
[2019-11-05 05:02] LABS: Troponin I 1.899 ng/mL (< 0.028)
[2019-11-05] MEDS: Furosemide 40 MG/4 ML VIAL SLOW IVP SCH ×2 (06:19→14:52)
[2019-11-05] MEDS: Nitroglycerin 2% Ointment 1 INCH/1 GM Packet TOP SCH ×2 (06:19→14:52)
[2019-11-05 07:55] LABS: Anion Gap 20 mmol/L (10-20); BUN (Urea Nitrogen) 45 mg/dL (9.8-20.1); Calc. Creatinine Clearance 15 mL/min (70-130); Calcium 8.3 mg/dL (7.8-10.44); Carbon Dioxide 18 mmol/L (23-31); Chloride 104 mmol/L (98-107); Estimated GFR-MDRD 15; Glucose 93 mg/dL (83-110); Potassium 3.7 mmol/L (3.5-5.1); Sodium 138 mmol/L (136-145)
[2019-11-05 09:12] LABS: #Lymphocytes 1.3 thou/uL (1.20-3.40); #Monocytes 0.6 thou/uL (0.11-0.59); #Neutrophils 4.4 thou/uL (1.40-6.50); %Basophils 0.2 % (0.0-1.0); %Eosinophils 0.4 % (0.0-10.0); %Lymphocytes 20.2 % (21.0-51.0); %Monocytes 9.8 % (0.0-10.0); %Neutrophils 69.5 % (42.0-75.0); Band 10 % (5-11); Hemoglobin 10.7 g/dL (12.0-16.0); Lymphocytes 21 % (21-51); MDiff Complete? YES; Mean Corpuscular HGB CONC 32.6 g/dL (32.0-36.0); Mean Corpuscular Hemoglobin 32.6 pg (27.0-31.0); Mean Corpuscular Volume 99.9 fL (78.0-98.0); Mean Platelet Volume 10.4 fL (7.4-10.4); Monocytes 6 % (0-10); Neutrophil 63 % (42-75); Platelet Count 125 thou/uL (130-400); Platelet Morphology Comment Appears Decreased; Polychromasia SLIGHT = 2-3 cells (100X) (0-2/hpf); RBC Distribution Width 13.3 % (11.5-14.5); Red Blood Cell (RBC) Count 3.29 mill/uL (4.20-5.40); White Blood Cell (WBC) Count 6.3 thou/uL (4.8-10.8)
[2019-11-05] MEDS: Heparin 10,000 UNITS/ 10 ML VIAL SLOW IVP SCH (09:53)
[2019-11-05] MEDS: Aspirin 81 mg Enteric Coated Tablet PO SCH (09:53)
[2019-11-05] MEDS: Famotidine/PF 20 mg/2ml Vial SLOW IVP SCH (09:54)
--- NOTE | 2019-11-05 15:15 | PDOC.HOSPP ---
- Subjective Encounter Date: 11/05/19 Encounter Time: 10:30 Subjective: no sob or chest pain or palpitations feels better is sitting in chair, has ambulated in room son at bedside - Objective Vital Signs & Weight: Vital Signs (12 hours) Temp Pulse Resp BP Pulse Ox 11/05/19 11:13 98.7 F 58 L 16 150/65 H 95 11/05/19 08:12 98.2 F 59 L 20 135/63 94 L 11/05/19 03:21 100.1 F H 70 16 191/79 H 93 L Weight Weight 145 lb 12.8 oz I&O: 11/04/19 11/05/19 11/06/19 06:59 06:59 06:59 Intake Total 120 600 Output Total 200 Balance 120 400 Result Diagrams: 11/05/19 07:27 11/05/19 07:27 Hospitalist ROS - Medication Medications: Active Medications Generic Name Dose Route Start Last Admin Trade Name Freq PRN Reason Stop Dose Admin Acetaminophen 650 mg 11/03/19 22:57 11/05/19 03:51 Tylenol PO 650 mg Q4H PRN Administration Headache/Fever/Mild Pain (1-3) Aspirin 81 mg 11/04/19 09:00 11/05/19 09:53 Ecotrin PO 81 mg DAILY DANIELLE Administration Famotidine 20 mg 11/04/19 09:00 11/05/19 09:54 Pepcid SLOW IVP 20 mg 0900 DANIELEL Administration Sodium Chloride 10 ml 11/04/19 09:00 11/05/19 09:54 Flush - Normal Saline IVF 10 ml Q12HR DANIELLE Administration - Exam General Appearance: awake alert Eye: PERRL, anicteric sclera ENT: no oropharyngeal lesions, moist mucosa Neck: supple, no JVD Heart: RRR, no murmur Respiratory: no wheezes, no rales Gastrointestinal: soft, non-tender, non-distended, normal bowel sounds Extremities: no cyanosis, no edema Neurological: cranial nerve grossly intact, no focal deficits Psychiatric: normal affect, A&O x 3 Hosp A/P (1) Acute CHF (congestive heart failure) Code(s): I50.9 - HEART FAILURE, UNSPECIFIED Status: Acute Qualifiers: Heart failure type: systolic Qualified Code(s): I50.21 - Acute systolic ( congestive) heart failure (2) PNA (pneumonia) Code(s): J18.9 - PNEUMONIA, UNSPECIFIED ORGANISM Status: Suspected (3) Type 2 AMI (acute myocardial infarction) Code(s): I21.A1 - MYOCARDIAL INFARCTION TYPE 2 Status: Acute (4) Paroxysmal A-fib Code(s): I48.0 - PAROXYSMAL ATRIAL FIBRILLATION Status: Chronic (5) PVD (peripheral vascular disease) Code(s): I73.9 - PERIPHERAL VASCULAR DISEASE, UNSPECIFIED Status: Chronic (6) CKD (chronic kidney disease) stage 4, GFR 15-29 ml/min Code(s): N18.4 - CHRONIC KIDNEY DISEASE, STAGE 4 (SEVERE) Status: Chronic (7) Dyslipidemia Code(s): E78.5 - HYPERLIPIDEMIA, UNSPECIFIED Status: Chronic (8) HTN (hypertension) Code(s): I10 - ESSENTIAL (PRIMARY) HYPERTENSION Status: Chronic Qualifiers: Hypertension type: essential hypertension Qualified Code(s): I10 - Essential (primary) hypertension (9) Acute kidney injury superimposed on CKD Code(s): N17.9 - ACUTE KIDNEY FAILURE, UNSPECIFIED; N18.9 - CHRONIC KIDNEY DISEASE, UNSPECIFIED Status: Acute (10) Cardiomyopathy Code(s): I42.9 - CARDIOMYOPATHY, UNSPECIFIED Status: Chronic Qualifiers: Cardiomyopathy type: dilated - Plan gentle diuresis with oral lasix, creatinine is up to 2.9 this am. doubt if its pna, is on omnicef. Appreciate 's help, is of heparin drip and nitropaste. continue aspirin, coreg, amiodarone, lipitor. no clinical or ekg evidence of acute NH, troponin elevation likely due to stress from LV stretching from chf exac and type 2 NH hemostable d/w patient and son at bedside.
[2019-11-05 15:31] LABS: PTT Greater than 250.0 SEC (22.9-36.1)
--- NOTE | 2019-11-05 17:57 | CON ---
DATE OF CONSULTATION: 11/05/2019 REASON FOR CONSULTATION: Heart failure. HISTORY OF PRESENT ILLNESS: Ms. Yo is a very pleasant 84-year-old female who comes to the hospital for shortness of breath. She has presumed ischemic cardiomyopathy with an EF of 30% to 35%. She has never had a heart catheterization as her creatinine has always been high since the diagnosis was made. She wanted conservative therapy for this, so this was never done. She has been in and out of heart failure in the last few months. She had an elevated BNP on this arrival at 1879. She comes in as she has been slowly noticing worsening shortness of breath over the last 2 days before admission. She was admitted on Tuesday of last week and today is Tuesday. She has been diuresed over the week and actually feels much better. She is asking me today if she can go home. She is on room air and feels pretty much back to normal. PAST MEDICAL HISTORY: 1. Presumed ischemic cardiomyopathy. 2. EF at 30% to 35%. 3. Chronic kidney disease. 4. Hypertension. 5. Hyperlipidemia. PAST SURGICAL HISTORY: 1. Right lower extremity stent. 2. Appendectomy. 3. Partial hysterectomy. 4. Tonsillectomy. 5. Carotid surgery. 6. Right wrist surgery. SOCIAL HISTORY: No alcohol, tobacco, or drugs. FAMILY HISTORY: Noncontributory. OUTPATIENT MEDICATIONS: 1. Amiodarone 200 mg a day. 2. Aspirin 81 a day. 3. Furosemide 40 mg a day. 4. Carvedilol 3.125 b.i.d. 5. Atorvastatin 40 mg q.h.s. 6. Oxybutynin 10 mg a day. 7. Isosorbide dinitrate 10 mg b.i.d. 8. Hydralazine 25 mg b.i.d. ALLERGIES: NSAIDS. REVIEW OF SYSTEMS: 12-point review of systems was done and was all negative unless stated in the history of present illness. PHYSICAL EXAMINATION: VITAL SIGNS: Temperature 98.3, pulse 80, respiratory rate is 18, saturations 97% on room air, blood pressure 177/73. GENERAL: Awake, alert, oriented x3, in no distress. HEENT: Normocephalic, atraumatic. NECK: Supple. LUNGS: Have mild crackles at bases. CARDIOVASCULAR: S1 and S2. No S3 or S4. No murmurs. ABDOMEN: Soft. Positive bowel sounds. EXTREMITIES: Trace edema. SKIN: Warm and dry. LABORATORY DATA: Laboratory work was reviewed. CBC with a white count of 6, hemoglobin 10, hematocrit 32, platelet count of 125. Coags were reviewed. Chemistry was reviewed. Creatinine of 2.65, currently at 2.96. Troponin is 0.1, 0.1, 1.8, 1.8. BNP was 1879. Influenza A and B are both negative. Blood cultures are both negative. ASSESSMENT AND PLAN: 1. [id number] systolic heart failure. 2. Ischemic cardiomyopathy with ejection fraction of 30% to 35%. 3. Chronic kidney disease. 4. Hypertension. PLAN: 1. Would switch back to oral diuresis. If she is stable tomorrow, she should be able to be discharged home. 2. Continue current regimen. No change in her blood pressure medications for now. Continue amiodarone. Would get a TSH during this admission. Make sure her thyroid is not any issue with her amiodarone use. Thank you for letting us to participate in the care of this patient. We will follow. Job ID: [id number]
[2019-11-05] MEDS: Carvedilol 3.125 MG TAB PO SCH (19:40)
[2019-11-05] MEDS: hydrALAZINE 25 MG TAB PO SCH (19:40)
[2019-11-05] MEDS: Isosorbide Dinitrate 20 MG TAB PO SCH (19:41)
[2019-11-05] MEDS: Atorvastatin Calcium 40 MG TAB PO SCH (19:41)
[2019-11-06 05:13] LABS: Anion Gap 14 mmol/L (10-20); BUN (Urea Nitrogen) 46 mg/dL (9.8-20.1); Calc. Creatinine Clearance 15 mL/min (70-130); Calcium 7.9 mg/dL (7.8-10.44); Carbon Dioxide 23 mmol/L (23-31); Chloride 103 mmol/L (98-107); Estimated GFR-MDRD 15; Glucose 96 mg/dL (83-110); Sodium 137 mmol/L (136-145)
[2019-11-06] MEDS ORDERED: Potassium Chloride 20 MEQ TAB PO SCH ×2 (06:00→16:00)
[2019-11-06 07:09] LABS: Potassium 2.8 mmol/L (3.5-5.1)
--- NOTE | 2019-11-06 08:51 | RAD ---
RADIOGRAPH CHEST 1 VIEW: DATE: 11/06/2019 HISTORY: 84-year-old female follow-up abnormal chest radiograph. COMPARISON: 11/03/2019 FINDINGS: There is cardiomegaly. There is no evidence of airspace density, pulmonary edema, or pneumothorax. Th e lateral costophrenic angles are not effaced. The prior study of 11/03/2019 currently on synapse PACS is that of a different, much younger individual. We will remove that wrong patient's radiograph from this patient's list of prior studies. There has been no interval change compared to 07/24/2019. IMPRESSION: 1) No acute pulmonary findings. 2) cardiomegaly without congestive heart failure.
[2019-11-06] MEDS ORDERED: Furosemide 20 MG TAB PO SCH (09:00)
[2019-11-06] MEDS ORDERED: Cefdinir 300 MG CAP PO SCH (09:00)
[2019-11-06] MEDS: Aspirin 81 mg Enteric Coated Tablet PO SCH (09:46)
[2019-11-06] MEDS: hydrALAZINE 25 MG TAB PO SCH ×2 (09:46→21:05)
[2019-11-06] MEDS: Oxybutynin ER 5 MG TAB PO SCH (09:47)
[2019-11-06] MEDS: Carvedilol 3.125 MG TAB PO SCH ×2 (09:47→21:04)
[2019-11-06] MEDS: Isosorbide Dinitrate 20 MG TAB PO SCH ×2 (09:48→21:05)
[2019-11-06] MEDS: Amiodarone 200 MG TAB PO SCH (09:48)
--- NOTE | 2019-11-06 11:47 | PDOC.HOSPP ---
- Subjective Encounter Date: 11/06/19 Encounter Time: 10:15 Subjective: c/o having diarrhea overnight which has resolved this am no sob or chest pain - Objective Vital Signs & Weight: Vital Signs (12 hours) Temp Pulse Resp BP Pulse Ox 11/06/19 08:06 98.7 F 63 20 185/75 H 93 L 11/06/19 03:15 100.2 F H 67 18 167/71 H 92 L Weight Weight 142 lb 6.4 oz I&O: 11/05/19 11/06/19 11/07/19 06:59 06:59 06:59 Intake Total 600 840 Output Total 200 600 Balance 400 240 Result Diagrams: 11/05/19 07:27 11/06/19 04:20 Hospitalist ROS - Medication Medications: Active Medications Generic Name Dose Route Start Last Admin Trade Name Freq PRN Reason Stop Dose Admin Acetaminophen 650 mg 11/03/19 22:57 11/05/19 03:51 Tylenol PO 650 mg Q4H PRN Administration Headache/Fever/Mild Pain (1-3) Amiodarone HCl 200 mg 11/06/19 09:00 11/06/19 09:48 Cordarone PO 200 mg DAILY DANIELLE Administration Aspirin 81 mg 11/04/19 09:00 11/06/19 09:46 Ecotrin PO 81 mg DAILY DANIELLE Administration Atorvastatin Calcium 40 mg 11/05/19 21:00 11/05/19 19:41 Lipitor PO 40 mg HS DANIELLE Administration Carvedilol 3.125 mg 11/05/19 21:00 11/06/19 09:47 Coreg PO 3.125 mg BID DANIELLE Administration Hydralazine HCl 25 mg 11/05/19 21:00 11/06/19 09:46 Apresoline PO 25 mg BID DANIELLE Administration Isosorbide Dinitrate 20 mg 11/05/19 21:00 11/06/19 09:48 Isordil PO 20 mg BID DANIELLE Administration Oxybutynin Chloride 10 mg 11/06/19 09:00 11/06/19 09:47 Ditropan Xl PO 10 mg DAILY DANIELLE Administration Pantoprazole Sodium 40 mg 11/06/19 09:00 11/06/19 09:48 Protonix PO 40 mg DAILY DANIELLE Administration Sodium Chloride 10 ml 11/04/19 09:00 11/06/19 09:48 Flush - Normal Saline IVF 10 ml Q12HR DANIELLE Administration - Exam General Appearance: awake alert Eye: PERRL, anicteric sclera ENT: no oropharyngeal lesions, moist mucosa Neck: supple, no JVD Heart: RRR, no murmur Respiratory: no wheezes, no rales Gastrointestinal: soft, non-tender, non-distended, normal bowel sounds Extremities: no cyanosis, no edema Neurological: cranial nerve grossly intact, no focal deficits Hosp A/P (1) Acute CHF (congestive heart failure) Code(s): I50.9 - HEART FAILURE, UNSPECIFIED Status: Acute Qualifiers: Heart failure type: systolic Qualified Code(s): I50.21 - Acute systolic ( congestive) heart failure (2) PNA (pneumonia) Code(s): J18.9 - PNEUMONIA, UNSPECIFIED ORGANISM Status: Ruled-out (3) Type 2 AMI (acute myocardial infarction) Code(s): I21.A1 - MYOCARDIAL INFARCTION TYPE 2 Status: Acute (4) Paroxysmal A-fib Code(s): I48.0 - PAROXYSMAL ATRIAL FIBRILLATION Status: Chronic (5) PVD (peripheral vascular disease) Code(s): I73.9 - PERIPHERAL VASCULAR DISEASE, UNSPECIFIED Status: Chronic (6) CKD (chronic kidney disease) stage 4, GFR 15-29 ml/min Code(s): N18.4 - CHRONIC KIDNEY DISEASE, STAGE 4 (SEVERE) Status: Chronic (7) Dyslipidemia Code(s): E78.5 - HYPERLIPIDEMIA, UNSPECIFIED Status: Chronic (8) HTN (hypertension) Code(s): I10 - ESSENTIAL (PRIMARY) HYPERTENSION Status: Chronic Qualifiers: Hypertension type: essential hypertension Qualified Code(s): I10 - Essential (primary) hypertension (9) Acute kidney injury superimposed on CKD Code(s): N17.9 - ACUTE KIDNEY FAILURE, UNSPECIFIED; N18.9 - CHRONIC KIDNEY DISEASE, UNSPECIFIED Status: Acute (10) Cardiomyopathy Code(s): I42.9 - CARDIOMYOPATHY, UNSPECIFIED Status: Chronic Qualifiers: Cardiomyopathy type: dilated - Plan overnight had diarrhea with low K this am, on potassium replacement, repeat check later today. there is no sign of pna on cxr, dc antibiotics continue aspirin, coreg, amiodarone, lipitor, bidil. no clinical or ekg evidence of acute [place], troponin elevation likely due to stress from LV stretching from chf exac and type 2 [place] hemostable d/w patient and daughter at bedside. dc plan in am if stable
[2019-11-06 12:58] LABS: Anion Gap 13 mmol/L (10-20); BUN (Urea Nitrogen) 47 mg/dL (9.8-20.1); Calc. Creatinine Clearance 14 mL/min (70-130); Carbon Dioxide 24 mmol/L (23-31); Chloride 104 mmol/L (98-107); Estimated GFR-MDRD 15; Glucose 112 mg/dL (83-110); Potassium 3.4 mmol/L (3.5-5.1); Sodium 138 mmol/L (136-145)
[2019-11-06 16:26] LABS: Potassium 3.6 mmol/L (3.5-5.1)
[2019-11-06] MEDS: Acetaminophen 325 MG TAB PO PRN (21:05)
[2019-11-06] MEDS: Atorvastatin Calcium 40 MG TAB PO SCH (21:05)
[2019-11-07 05:28] LABS: Anion Gap 14 mmol/L (10-20); BUN (Urea Nitrogen) 54 mg/dL (9.8-20.1); Calc. Creatinine Clearance 12 mL/min (70-130); Calcium 7.9 mg/dL (7.8-10.44); Carbon Dioxide 22 mmol/L (23-31); Chloride 105 mmol/L (98-107); Estimated GFR-MDRD 13; Glucose 91 mg/dL (83-110); Potassium 3.7 mmol/L (3.5-5.1); Sodium 137 mmol/L (136-145)
[2019-11-07] MEDS ORDERED: Sodium Chloride 0.45% 1,000 ML IV SCH (07:15)
[2019-11-07] MEDS ORDERED: Furosemide 40 MG TAB PO SCH (07:30)
[2019-11-07] MEDS: Aspirin 81 mg Enteric Coated Tablet PO SCH (07:58)
[2019-11-07] MEDS: hydrALAZINE 25 MG TAB PO SCH ×2 (07:59→20:58)
[2019-11-07] MEDS: Oxybutynin ER 5 MG TAB PO SCH (07:59)
[2019-11-07] MEDS: Carvedilol 3.125 MG TAB PO SCH ×2 (09:11→20:59)
[2019-11-07] MEDS: Isosorbide Dinitrate 20 MG TAB PO SCH ×2 (09:11→20:59)
[2019-11-07] MEDS: Amiodarone 200 MG TAB PO SCH (09:11)
--- NOTE | 2019-11-07 12:22 | PDOC.HOSPP ---
- Subjective Encounter Date: 11/07/19 Encounter Time: 10:25 Subjective: no nausea or diarrhea, feels better is ambulating in room - Objective Vital Signs & Weight: Vital Signs (12 hours) Temp Pulse Resp BP Pulse Ox 11/07/19 09:11 61 11/07/19 07:52 98.6 F 55 L 16 177/74 H 96 11/07/19 03:05 97.8 F 49 L 18 136/63 96 Weight Weight 143 lb 4.8 oz I&O: 11/06/19 11/07/19 11/08/19 06:59 06:59 06:59 Intake Total 840 480 Output Total 600 Balance 240 480 Result Diagrams: 11/05/19 07:27 11/07/19 04:48 Hospitalist ROS - Medication Medications: Active Medications Generic Name Dose Route Start Last Admin Trade Name Freq PRN Reason Stop Dose Admin Acetaminophen 650 mg 11/03/19 22:57 11/06/19 21:05 Tylenol PO 650 mg Q4H PRN Administration Headache/Fever/Mild Pain (1-3) Amiodarone HCl 200 mg 11/06/19 09:00 11/07/19 09:11 Cordarone PO 200 mg DAILY DANIELLE Administration Aspirin 81 mg 11/04/19 09:00 11/07/19 07:58 Ecotrin PO 81 mg DAILY DANIELLE Administration Atorvastatin Calcium 40 mg 11/05/19 21:00 11/06/19 21:05 Lipitor PO 40 mg HS DANIELLE Administration Carvedilol 3.125 mg 11/05/19 21:00 11/07/19 09:11 Coreg PO 3.125 mg BID DANIELLE Administration Hydralazine HCl 25 mg 11/05/19 21:00 11/07/19 07:59 Apresoline PO 25 mg BID DANIELLE Administration Sodium Chloride 1,000 mls @ 100 mls/hr 11/07/19 07:15 11/07/19 07:58 1/2 Normal Saline IV 11/07/19 17:14 1,000 mls .Q10H DANIELLE Administration Isosorbide Dinitrate 20 mg 11/05/19 21:00 11/07/19 09:11 Isordil PO 20 mg BID DANIELLE Administration Oxybutynin Chloride 10 mg 11/06/19 09:00 11/07/19 07:59 Ditropan Xl PO 10 mg DAILY DANIELLE Administration Pantoprazole Sodium 40 mg 11/06/19 09:00 11/07/19 07:58 Protonix PO 40 mg DAILY DANIELLE Administration Sodium Chloride 10 ml 11/04/19 09:00 11/07/19 09:11 Flush - Normal Saline IVF 10 ml Q12HR DANIELLE Administration - Exam General Appearance: awake alert Eye: PERRL, anicteric sclera ENT: no oropharyngeal lesions, moist mucosa Neck: supple, no JVD Heart: RRR, no murmur Respiratory: no wheezes, no rales, rhonchi Gastrointestinal: soft, non-tender, non-distended, normal bowel sounds Extremities: no cyanosis, no edema Neurological: cranial nerve grossly intact, no focal deficits Psychiatric: normal affect, A&O x 3 Hosp A/P (1) Acute CHF (congestive heart failure) Code(s): I50.9 - HEART FAILURE, UNSPECIFIED Status: Acute Qualifiers: Heart failure type: systolic Qualified Code(s): I50.21 - Acute systolic ( congestive) heart failure (2) Type 2 AMI (acute myocardial infarction) Code(s): I21.A1 - MYOCARDIAL INFARCTION TYPE 2 Status: Acute (3) Paroxysmal A-fib Code(s): I48.0 - PAROXYSMAL ATRIAL FIBRILLATION Status: Chronic (4) PVD (peripheral vascular disease) Code(s): I73.9 - PERIPHERAL VASCULAR DISEASE, UNSPECIFIED Status: Chronic (5) CKD (chronic kidney disease) stage 4, GFR 15-29 ml/min Code(s): N18.4 - CHRONIC KIDNEY DISEASE, STAGE 4 (SEVERE) Status: Chronic (6) Dyslipidemia Code(s): E78.5 - HYPERLIPIDEMIA, UNSPECIFIED Status: Chronic (7) HTN (hypertension) Code(s): I10 - ESSENTIAL (PRIMARY) HYPERTENSION Status: Chronic Qualifiers: Hypertension type: essential hypertension Qualified Code(s): I10 - Essential (primary) hypertension (8) Acute kidney injury superimposed on CKD Code(s): N17.9 - ACUTE KIDNEY FAILURE, UNSPECIFIED; N18.9 - CHRONIC KIDNEY DISEASE, UNSPECIFIED Status: Acute (9) Cardiomyopathy Code(s): I42.9 - CARDIOMYOPATHY, UNSPECIFIED Status: Chronic Qualifiers: Cardiomyopathy type: dilated - Plan potassium is corrected, renal function has gotten a bit worse, gentle iv fluid x1 liter there is no sign of pna on cxr, off antibiotics continue aspirin, coreg, amiodarone, lipitor, bidil. no clinical or ekg evidence of acute OR, troponin elevation likely due to stress from LV stretching from chf exac and type 2 OR hemostable d/w patient and daughter at bedside. dc plan per cardiology adv will need outpt close f/u with her knot cutter
--- NOTE | 2019-11-07 19:03 | PDOC.CPN ---
- Subjective Date: 11/07/19 Time: 18:58 Interval history: She feels well. No chest pain. Breathing at baseline. Creatinine increased and has been getting IV fluids back. - Review of Systems General: denies: fever/chills, weight/appetite/sleep changes, night sweats, fatigue Respiratory: denies: cough, congestion, shortness of breath, exercise intolerance Cardiovascular: denies: chest pain, palpitation, edema, paroxysmal nocturnal dyspnea, orthopnea Gastrointestinal: denies: nausea, vomiting, diarrhea, constipation, abd pain, GI bleeding Musculoskeletal: denies: pain, tenderness, stiffness, swelling, arthritis/ arthralgias Neurological: denies: numbness, syncope, seizure, weakness - Objective Allergies/Adverse Reactions: Allergies Allergy/AdvReac Type Severity Reaction Status Date / Time No Known Allergies Allergy Verified 02/21/19 13:07 Visit Medications: Current Medications Acetaminophen (Tylenol) 650 mg PO Q4H PRN PRN Reason: Headache/Fever/Mild Pain (1-3) Last Admin: 11/06/19 21:05 Dose: 650 mg Amiodarone HCl (Cordarone) 200 mg PO DAILY [facility] Last Admin: 11/07/19 09:11 Dose: 200 mg Aspirin (Ecotrin) 81 mg PO DAILY [facility] Last Admin: 11/07/19 07:58 Dose: 81 mg Atorvastatin Calcium (Lipitor) 40 mg PO HS [facility] Last Admin: 11/06/19 21:05 Dose: 40 mg Carvedilol (Coreg) 3.125 mg PO BID [facility] Last Admin: 11/07/19 09:11 Dose: 3.125 mg Guaifenesin/Dextromethorphan (Robitussin Dm) 15 ml PO Q4H PRN PRN Reason: Cough Hydralazine HCl (Apresoline) 25 mg PO BID [facility] Last Admin: 11/07/19 07:59 Dose: 25 mg Isosorbide Dinitrate (Isordil) 20 mg PO BID [facility] Last Admin: 11/07/19 09:11 Dose: 20 mg Oxybutynin Chloride (Ditropan Xl) 10 mg PO DAILY [facility] Last Admin: 11/07/19 07:59 Dose: 10 mg Pantoprazole Sodium (Protonix) 40 mg PO DAILY [facility] Last Admin: 11/07/19 07:58 Dose: 40 mg Sodium Chloride (Flush - Normal Saline) 10 ml IVF Q12HR [facility] Last Admin: 11/07/19 09:11 Dose: 10 ml Sodium Chloride (Flush - Normal Saline) 10 ml IVF PRN PRN PRN Reason: Saline Flush Vital Signs & Weight: Vital Signs Temp Pulse Resp BP Pulse Ox 11/07/19 15:43 98.1 F 57 L 20 153/67 H 95 11/07/19 12:05 97.6 F 61 18 127/58 L 96 11/07/19 09:11 61 11/07/19 07:52 98.6 F 55 L 16 177/74 H 96 Weight 143 lb 4.8 oz - Physical Exam General: alert & oriented x3 HEENT: mucus membranes moist Neck: supple neck Cardiac: regular rate and rhythm Lungs: clear to auscultation Neuro: grossly intact Abdomen: active bowel sounds Extremities: no edema Skin: clear Musculoskeletal: no pain - Labs Result Diagrams: 11/05/19 07:27 11/07/19 04:48 Troponin/CKMB CK-MB (CK-2) 1.8 ng/mL (0-6.6) 11/03/19 20:28 Troponin I 1.899 ng/mL (< 0.028) H* 11/05/19 04:16 - Telemetry Sinus rhythms and dysrhythmias: sinus rhythm - Assessment/Plan Assessment/Plan: 1. Acute on chronic systolic heart failure 2. Ischemic CM, presumed CAD. 3. HELLEN on CKD PLAN: - Creatinine increasing. - She already received a litre of fluids. Would hold off on any more fluids for now. - Monitor creatinine. - Nephrology following. - CV stable.
[2019-11-07] MEDS: Atorvastatin Calcium 40 MG TAB PO SCH (20:59)
[2019-11-07] MEDS: Acetaminophen 325 MG TAB PO PRN (20:59)
[2019-11-08 05:36] LABS: Anion Gap 12 mmol/L (10-20); BUN (Urea Nitrogen) 52 mg/dL (9.8-20.1); Calc. Creatinine Clearance 14 mL/min (70-130); Calcium 7.7 mg/dL (7.8-10.44); Carbon Dioxide 23 mmol/L (23-31); Chloride 104 mmol/L (98-107); Estimated GFR-MDRD 14; Glucose 90 mg/dL (83-110); Potassium 3.9 mmol/L (3.5-5.1); Sodium 135 mmol/L (136-145)
--- NOTE | 2019-11-08 08:30 | PDOC.CPN ---
- Subjective Date: 11/08/19 Time: 08:28 Interval history: She feels well. Breathing at baseline. - Review of Systems General: denies: fever/chills, weight/appetite/sleep changes, night sweats, fatigue Respiratory: denies: cough, congestion, shortness of breath, exercise intolerance Cardiovascular: denies: chest pain, palpitation, edema, paroxysmal nocturnal dyspnea, orthopnea Gastrointestinal: denies: nausea, vomiting, diarrhea, constipation, abd pain, GI bleeding Musculoskeletal: denies: pain, tenderness, stiffness, swelling, arthritis/ arthralgias Neurological: denies: numbness, syncope, seizure, weakness - Objective Allergies/Adverse Reactions: Allergies Allergy/AdvReac Type Severity Reaction Status Date / Time No Known Allergies Allergy Verified 02/21/19 13:07 Visit Medications: Current Medications Acetaminophen (Tylenol) 650 mg PO Q4H PRN PRN Reason: Headache/Fever/Mild Pain (1-3) Last Admin: 11/07/19 20:59 Dose: 650 mg Amiodarone HCl (Cordarone) 200 mg PO DAILY [facility] Last Admin: 11/07/19 09:11 Dose: 200 mg Aspirin (Ecotrin) 81 mg PO DAILY [facility] Last Admin: 11/07/19 07:58 Dose: 81 mg Atorvastatin Calcium (Lipitor) 40 mg PO HS [facility] Last Admin: 11/07/19 20:59 Dose: 40 mg Carvedilol (Coreg) 3.125 mg PO BID [facility] Last Admin: 11/07/19 20:59 Dose: 3.125 mg Guaifenesin/Dextromethorphan (Robitussin Dm) 15 ml PO Q4H PRN PRN Reason: Cough Last Admin: 11/07/19 21:00 Dose: 15 ml Hydralazine HCl (Apresoline) 25 mg PO BID [facility] Last Admin: 11/07/19 20:58 Dose: 25 mg Isosorbide Dinitrate (Isordil) 20 mg PO BID [facility] Last Admin: 11/07/19 20:59 Dose: 20 mg Oxybutynin Chloride (Ditropan Xl) 10 mg PO DAILY [facility] Last Admin: 11/07/19 07:59 Dose: 10 mg Pantoprazole Sodium (Protonix) 40 mg PO DAILY [facility] Last Admin: 11/07/19 07:58 Dose: 40 mg Sodium Chloride (Flush - Normal Saline) 10 ml IVF Q12HR DANIELLE Last Admin: 11/07/19 22:58 Dose: Not Given Sodium Chloride (Flush - Normal Saline) 10 ml IVF PRN PRN PRN Reason: Saline Flush Vital Signs & Weight: Vital Signs Temp Pulse Resp BP BP BP Pulse Ox 11/08/19 08:00 98.3 F 57 L 16 182/77 H 98 11/08/19 03:40 98.1 F 55 L 18 132/64 95 11/07/19 23:54 131/63 11/07/19 20:58 66 182/76 H Weight 146 lb 11.2 oz - Physical Exam General: alert & oriented x3 HEENT: mucus membranes moist Neck: supple neck Cardiac: regular rate and rhythm Lungs: bibasilar rales Neuro: grossly intact Abdomen: active bowel sounds Extremities: no edema Skin: clear Musculoskeletal: no pain - Labs Result Diagrams: 11/05/19 07:27 11/08/19 04:07 Troponin/CKMB CK-MB (CK-2) 1.8 ng/mL (0-6.6) 11/03/19 20:28 Troponin I 1.899 ng/mL (< 0.028) H* 11/05/19 04:16 - Telemetry Sinus rhythms and dysrhythmias: sinus rhythm - Assessment/Plan Assessment/Plan: 1. Acute on chronic systolic heart failure 2. Ischemic CM, presumed CAD. 3. HELLEN on CKD PLAN: - Creatinine mildly improved. Hopefully she will start coming back down to baseline. - No more IV fluids. - Monitor creatinine and if better tomorrow restart home dose of PO diuretics. - Nephrology following. - CV stable.
[2019-11-08] MEDS: Oxybutynin ER 5 MG TAB PO SCH (09:54)
[2019-11-08] MEDS: Isosorbide Dinitrate 20 MG TAB PO SCH ×2 (09:54→20:03)
[2019-11-08] MEDS: hydrALAZINE 25 MG TAB PO SCH ×2 (09:55→20:02)
[2019-11-08] MEDS: Amiodarone 200 MG TAB PO SCH (09:56)
[2019-11-08] MEDS: Carvedilol 3.125 MG TAB PO SCH ×2 (09:56→20:03)
[2019-11-08] MEDS: Aspirin 81 mg Enteric Coated Tablet PO SCH (10:06)
--- NOTE | 2019-11-08 10:30 | CON ---
DATE OF CONSULTATION: 11/07/2019 CONSULTATION PHYSICIAN: Dr. Goldsmith. REASON FOR CONSULTATION: Acute kidney injury on chronic kidney disease. REASON FOR ADMISSION: Shortness of breath and cough. HISTORY OF PRESENT ILLNESS: An 84-year-old female with history of CKD, cardiomyopathy, hypertension, hyperlipidemia, came to the hospital with shortness of breath and cough and was treated for CHF exacerbation. She was found to have acute kidney injury on chronic kidney disease. Her baseline creatinine seems to be around 2.2 to 2.4 with a GFR of around 16 to 19. She was found to have a GFR of 13 today. Nephrology is consulted. She was also hypokalemic which was replaced. She has seen a sql ssrs developer at [facility] in the past and wants [facility] move over [facility]. No fever or chills. No nausea or vomiting. PAST MEDICAL HISTORY: Positive for CKD stage 4, cardiomyopathy, hypertension, and hyperlipidemia. PAST SURGICAL HISTORY: Right lower extremity stent, appendectomy, hysterectomy, tonsillectomy, carotid surgery, right wrist surgery. HOME MEDICATIONS: 1. Amiodarone. 2. Aspirin. 3. Lasix. 4. Coreg. 5. Lipitor. 6. Ditropan. 7. Isordil. 8. Apresoline. ALLERGIES: NO KNOWN DRUG ALLERGIES. SOCIAL HISTORY: No smoking, alcohol, or drugs. FAMILY HISTORY: No history of kidney disease. REVIEW OF SYSTEMS: The following complete review of systems was negative, unless otherwise mentioned in the HPI or below: Constitutional: Weight loss or gain, ability to conduct usual activities. Skin: Rash, itching. Eyes: Double vision, pain. ENT/Mouth: Nose bleeding, neck stiffness, pain, tenderness. Cardiovascular: Palpitations, dyspnea on exertion, orthopnea. Respiratory: Shortness of breath, wheezing, cough, hemoptysis, fever or night sweats. Gastrointestinal: Poor appetite, abdominal pain, heartburn, nausea, vomiting, constipation, or diarrhea. Genitourinary: Urgency, frequency, dysuria, nocturia. Musculoskeletal: Pain, swelling. Neurologic/Psychiatric: Anxiety, depression. Allergy/Immunologic: Skin rash, bleeding tendency. PHYSICAL EXAMINATION: GENERAL: This is a well-built female, in no apparent distress. VITAL SIGNS: Temperature 97.1, pulse 61, respiratory rate 18, blood pressure 127/58. HEENT: Atraumatic, normocephalic. Oral mucosa is moist. NECK: Supple. CARDIOVASCULAR: S1, S2 heard. Rate and rhythm regular. RESPIRATORY: Clear to auscultation. GASTROINTESTINAL: Abdomen is soft. MUSCULOSKELETAL: No tenderness. No edema. DERMATOLOGIC: No skin rash. NEUROLOGIC: Alert and awake and oriented x3. PSYCHIATRIC: Mood and affect normal. LABORATORY DATA: Hemoglobin is 10.7, potassium 3.7, BUN is 54, and creatinine is 3.3. ASSESSMENT AND PLAN: 1. Acute kidney injury on chronic kidney disease stage 4 with worsening labs. No acute indication for dialysis. 2. Cardiorenal syndrome. Limit fluid intake. 3. Edema, chronic. 4. Hypertension. 5. History of hyperlipidemia. 6. History of anemia. 7. Hypokalemia, replace. No acute need for dialysis. Need to monitor labs closely. If no improvement, might be a good candidate for peritoneal dialysis which would be gentle on her body given her cardiac status. Will have close followup. Avoid nephrotoxins. We will follow. Thank you for the consult. Job ID: [id number]
--- NOTE | 2019-11-08 11:06 | PDOC.HOSPP ---
- Subjective Encounter Date: 11/08/19 Encounter Time: 10:20 Subjective: has cough, no sputum production or fever feels better daughter at bedside - Objective Vital Signs & Weight: Vital Signs (12 hours) Temp Pulse Resp BP BP BP Pulse Ox 11/08/19 09:55 57 L 182/77 H 11/08/19 08:00 98.3 F 57 L 16 182/77 H 98 11/08/19 03:40 98.1 F 55 L 18 132/64 95 11/07/19 23:54 131/63 Weight Weight 146 lb 11.2 oz I&O: 11/07/19 11/08/19 11/09/19 06:59 06:59 06:59 Intake Total 480 2060 Balance 480 2060 Result Diagrams: 11/05/19 07:27 11/08/19 04:07 Hospitalist ROS - Medication Medications: Active Medications Generic Name Dose Route Start Last Admin Trade Name Freq PRN Reason Stop Dose Admin Acetaminophen 650 mg 11/03/19 22:57 11/07/19 20:59 Tylenol PO 650 mg Q4H PRN Administration Headache/Fever/Mild Pain (1-3) Amiodarone HCl 200 mg 11/06/19 09:00 11/08/19 09:56 Cordarone PO 200 mg DAILY DANIELLE Administration Aspirin 81 mg 11/04/19 09:00 11/08/19 10:06 Ecotrin PO 81 mg DAILY DANIELLE Administration Atorvastatin Calcium 40 mg 11/05/19 21:00 11/07/19 20:59 Lipitor PO 40 mg HS DANIELLE Administration Carvedilol 3.125 mg 11/05/19 21:00 11/08/19 09:56 Coreg PO 3.125 mg BID DANIELLE Administration Guaifenesin/Dextromethorphan 15 ml 11/03/19 22:57 11/07/19 21:00 Robitussin Dm PO 15 ml Q4H PRN Administration Cough Hydralazine HCl 25 mg 11/05/19 21:00 11/08/19 09:55 Apresoline PO 25 mg BID DANIELLE Administration Isosorbide Dinitrate 20 mg 11/05/19 21:00 11/08/19 09:54 Isordil PO 20 mg BID DANIELLE Administration Oxybutynin Chloride 10 mg 11/06/19 09:00 11/08/19 09:54 Ditropan Xl PO 10 mg DAILY DANIELLE Administration Pantoprazole Sodium 40 mg 11/06/19 09:00 11/08/19 09:56 Protonix PO 40 mg DAILY DANIELLE Administration Sodium Chloride 10 ml 11/04/19 09:00 11/08/19 09:57 Flush - Normal Saline IVF 10 ml Q12HR DANIELLE Administration - Exam General Appearance: awake alert Eye: PERRL, anicteric sclera ENT: no oropharyngeal lesions, moist mucosa Neck: supple, no JVD Heart: RRR, no murmur Respiratory: no wheezes, no ronchi, rales Gastrointestinal: soft, non-tender, non-distended, normal bowel sounds Extremities: no cyanosis, no edema Neurological: cranial nerve grossly intact, no focal deficits Psychiatric: normal affect, A&O x 3 Hosp A/P (1) Acute CHF (congestive heart failure) Code(s): I50.9 - HEART FAILURE, UNSPECIFIED Status: Acute Qualifiers: Heart failure type: systolic Qualified Code(s): I50.21 - Acute systolic ( congestive) heart failure (2) Type 2 AMI (acute myocardial infarction) Code(s): I21.A1 - MYOCARDIAL INFARCTION TYPE 2 Status: Acute (3) Paroxysmal A-fib Code(s): I48.0 - PAROXYSMAL ATRIAL FIBRILLATION Status: Chronic (4) PVD (peripheral vascular disease) Code(s): I73.9 - PERIPHERAL VASCULAR DISEASE, UNSPECIFIED Status: Chronic (5) CKD (chronic kidney disease) stage 4, GFR 15-29 ml/min Code(s): N18.4 - CHRONIC KIDNEY DISEASE, STAGE 4 (SEVERE) Status: Chronic (6) Dyslipidemia Code(s): E78.5 - HYPERLIPIDEMIA, UNSPECIFIED Status: Chronic (7) HTN (hypertension) Code(s): I10 - ESSENTIAL (PRIMARY) HYPERTENSION Status: Chronic Qualifiers: Hypertension type: essential hypertension Qualified Code(s): I10 - Essential (primary) hypertension (8) Acute kidney injury superimposed on CKD Code(s): N17.9 - ACUTE KIDNEY FAILURE, UNSPECIFIED; N18.9 - CHRONIC KIDNEY DISEASE, UNSPECIFIED Status: Acute (9) Cardiomyopathy Code(s): I42.9 - CARDIOMYOPATHY, UNSPECIFIED Status: Chronic Qualifiers: Cardiomyopathy type: dilated - Plan potassium is corrected, renal function is slowing trending down to baseline, got 1 liter iv fluids yesterday, has mild rales now, will watch. there is no sign of pna on cxr, off antibiotics continue aspirin, coreg, amiodarone, lipitor, bidil. no clinical or ekg evidence of acute AK, troponin elevation likely due to stress from LV stretching from chf exac and type 2 AK hemostable d/w patient and daughter at bedside. will need outpt close f/u with .
--- NOTE | 2019-11-08 17:37 | PRG ---
DATE OF SERVICE: 11/08/2019 SUBJECTIVE: Patient was seen and examined at bedside and overnight events noted. Patient denies any shortness of breath or chest pain or palpitation. No history of nausea or vomiting or diarrhea or fever or chills or cramps. OBJECTIVE: General: This is a well-built female, in no apparent distress. Vital Signs: Temperature . Heart Rate 56. Respiratory rate 16. Blood pressure 145/65. HEENT: Atraumatic, normocephalic. Oral mucosa is moist. Neck: Supple. Cardiovascular: S1, S2 heard. Rate and rhythm regular. Respiratory: Clear to auscultation. Gastrointestinal: Abdomen is soft. Musculoskeletal: No tenderness. No edema. Dermatologic: No skin rash. Neurologic: Alert and awake and oriented x3. No focal neurologic deficits. Moving all the extremities. Psychiatric: Mood and affect normal. LABORATORY DATA: Potassium is 3.9, BUN is 52, and creatinine is 3.1. ASSESSMENT AND PLAN: 1. Acute kidney injury on chronic kidney disease stage 4 with slight improvement in renal function, but she is getting limit fluid overload, which is concerning. 2. Cardiorenal syndrome. Need close monitor of fluid status. Talked with Dr. Segura too. 3. Edema, chronic. 4. Hypertension. 5. History of anemia. 6. Hypokalemia, replace. Agree with holding the diuretics one more day. I might have to resume tomorrow and with fluid restriction and weight management and fluid management, and need close monitoring. The patient and family understands that no acute indication for dialysis. We will continue medical management for now. Family is agreeable. Job ID: [id number]
[2019-11-08] MEDS: Atorvastatin Calcium 40 MG TAB PO SCH (20:02)
[2019-11-09 05:06] LABS: Anion Gap 11 mmol/L (10-20); BUN (Urea Nitrogen) 53 mg/dL (9.8-20.1); Calc. Creatinine Clearance 15 mL/min (70-130); Calcium 8.1 mg/dL (7.8-10.44); Carbon Dioxide 24 mmol/L (23-31); Chloride 105 mmol/L (98-107); Estimated GFR-MDRD 15; Glucose 90 mg/dL (83-110); Potassium 3.7 mmol/L (3.5-5.1); Sodium 136 mmol/L (136-145)
[2019-11-09] MEDS: Oxybutynin ER 5 MG TAB PO SCH (08:43)
[2019-11-09] MEDS: Amiodarone 200 MG TAB PO SCH (08:43)
[2019-11-09] MEDS: hydrALAZINE 25 MG TAB PO SCH ×2 (08:43→20:37)
[2019-11-09] MEDS: Carvedilol 3.125 MG TAB PO SCH ×2 (08:45→20:38)
[2019-11-09] MEDS: Isosorbide Dinitrate 20 MG TAB PO SCH ×2 (08:45→20:38)
[2019-11-09] MEDS: Aspirin 81 mg Enteric Coated Tablet PO SCH (08:45)
--- NOTE | 2019-11-09 13:32 | PDOC.HOSPP ---
- Subjective Encounter Date: 11/09/19 Encounter Time: 10:00 Subjective: no sob, has occasional cough is ambulating in hallway daughter at bedside - Objective Vital Signs & Weight: Vital Signs (12 hours) Temp Pulse Resp BP BP Pulse Ox 11/09/19 12:00 98.4 F 58 L 16 152/66 H 94 L 11/09/19 08:43 62 186/74 H 11/09/19 08:00 98.5 F 62 16 186/74 H 97 11/09/19 03:20 98.4 F 57 L 14 163/70 H 93 L Weight Weight 147 lb 9.6 oz I&O: 11/08/19 11/09/19 11/10/19 06:59 06:59 06:59 Intake Total 2059 123 Balance 2059 123 Result Diagrams: 11/05/19 07:27 11/09/19 04:23 Hospitalist ROS - Medication Medications: Active Medications Generic Name Dose Route Start Last Admin Trade Name Freq PRN Reason Stop Dose Admin Acetaminophen 650 mg 11/03/19 22:57 11/07/19 20:59 Tylenol PO 650 mg Q4H PRN Administration Headache/Fever/Mild Pain (1-3) Amiodarone HCl 200 mg 11/06/19 09:00 11/09/19 08:43 Cordarone PO 200 mg DAILY DANIELLE Administration Aspirin 81 mg 11/04/19 09:00 11/09/19 08:45 Ecotrin PO 81 mg DAILY DANIELLE Administration Atorvastatin Calcium 40 mg 11/05/19 21:00 11/08/19 20:02 Lipitor PO 40 mg HS DANIELLE Administration Carvedilol 3.125 mg 11/05/19 21:00 11/09/19 08:45 Coreg PO 3.125 mg BID DANIELLE Administration Guaifenesin/Dextromethorphan 15 ml 11/03/19 22:57 11/07/19 21:00 Robitussin Dm PO 15 ml Q4H PRN Administration Cough Hydralazine HCl 25 mg 11/05/19 21:00 11/09/19 08:43 Apresoline PO 25 mg BID DANIELLE Administration Isosorbide Dinitrate 20 mg 11/05/19 21:00 11/09/19 08:45 Isordil PO 20 mg BID DANIELLE Administration Oxybutynin Chloride 10 mg 11/06/19 09:00 11/09/19 08:43 Ditropan Xl PO 10 mg DAILY DANIELLE Administration Pantoprazole Sodium 40 mg 11/06/19 09:00 11/09/19 08:43 Protonix PO 40 mg DAILY DANIELLE Administration Sodium Chloride 10 ml 11/04/19 09:00 11/09/19 08:45 Flush - Normal Saline IVF 10 ml Q12HR DANIELLE Administration - Exam General Appearance: awake alert Eye: PERRL, anicteric sclera ENT: no oropharyngeal lesions, moist mucosa Neck: supple, no JVD Heart: RRR, no murmur Respiratory: no wheezes, no ronchi, rales Gastrointestinal: soft, non-tender, non-distended, normal bowel sounds Extremities: no cyanosis, no edema Neurological: cranial nerve grossly intact, no focal deficits Psychiatric: normal affect, A&O x 3 Hosp A/P (1) Acute CHF (congestive heart failure) Code(s): I50.9 - HEART FAILURE, UNSPECIFIED Status: Acute Qualifiers: Heart failure type: systolic Qualified Code(s): I50.21 - Acute systolic ( congestive) heart failure (2) Type 2 AMI (acute myocardial infarction) Code(s): I21.A1 - MYOCARDIAL INFARCTION TYPE 2 Status: Acute (3) Paroxysmal A-fib Code(s): I48.0 - PAROXYSMAL ATRIAL FIBRILLATION Status: Chronic (4) PVD (peripheral vascular disease) Code(s): I73.9 - PERIPHERAL VASCULAR DISEASE, UNSPECIFIED Status: Chronic (5) CKD (chronic kidney disease) stage 4, GFR 15-29 ml/min Code(s): N18.4 - CHRONIC KIDNEY DISEASE, STAGE 4 (SEVERE) Status: Chronic (6) Dyslipidemia Code(s): E78.5 - HYPERLIPIDEMIA, UNSPECIFIED Status: Chronic (7) HTN (hypertension) Code(s): I10 - ESSENTIAL (PRIMARY) HYPERTENSION Status: Chronic Qualifiers: Hypertension type: essential hypertension Qualified Code(s): I10 - Essential (primary) hypertension (8) Acute kidney injury superimposed on CKD Code(s): N17.9 - ACUTE KIDNEY FAILURE, UNSPECIFIED; N18.9 - CHRONIC KIDNEY DISEASE, UNSPECIFIED Status: Acute (9) Cardiomyopathy Code(s): I42.9 - CARDIOMYOPATHY, UNSPECIFIED Status: Chronic Qualifiers: Cardiomyopathy type: dilated - Plan potassium is corrected, renal function is slowly trending down to baseline, has mild rales, will watch. there is no sign of pna on cxr, off antibiotics continue aspirin, coreg, amiodarone, lipitor, bidil. no clinical or ekg evidence of acute NE, troponin elevation likely due to stress from LV stretching from chf exac and type 2 NE hemostable d/w patient and daughter at bedside. will need outpt close f/u with . d/w , wants to add lasix and watch her, dc plan per cardiology advice.
--- NOTE | 2019-11-09 20:20 | PDOC.CPN ---
- Subjective Date: 11/09/19 Time: 20:18 Interval history: She is feeling well. No chest pain. - Review of Systems General: denies: fever/chills, weight/appetite/sleep changes, night sweats, fatigue Respiratory: denies: cough, congestion, shortness of breath, exercise intolerance Cardiovascular: denies: chest pain, palpitation, edema, paroxysmal nocturnal dyspnea, orthopnea Gastrointestinal: denies: nausea, vomiting, diarrhea, constipation, abd pain, GI bleeding Musculoskeletal: denies: pain, tenderness, stiffness, swelling, arthritis/ arthralgias Neurological: denies: numbness, syncope, seizure, weakness - Objective Allergies/Adverse Reactions: Allergies Allergy/AdvReac Type Severity Reaction Status Date / Time No Known Allergies Allergy Verified 02/21/19 13:07 Visit Medications: Current Medications Acetaminophen (Tylenol) 650 mg PO Q4H PRN PRN Reason: Headache/Fever/Mild Pain (1-3) Last Admin: 11/07/19 20:59 Dose: 650 mg Amiodarone HCl (Cordarone) 200 mg PO DAILY [facility] Last Admin: 11/09/19 08:43 Dose: 200 mg Aspirin (Ecotrin) 81 mg PO DAILY [facility] Last Admin: 11/09/19 08:45 Dose: 81 mg Atorvastatin Calcium (Lipitor) 40 mg PO HS [facility] Last Admin: 11/08/19 20:02 Dose: 40 mg Carvedilol (Coreg) 3.125 mg PO BID [facility] Last Admin: 11/09/19 08:45 Dose: 3.125 mg Furosemide (Lasix) 40 mg PO DAILY-[facility] Guaifenesin/Dextromethorphan (Robitussin Dm) 15 ml PO Q4H PRN PRN Reason: Cough Last Admin: 11/07/19 21:00 Dose: 15 ml Hydralazine HCl (Apresoline) 25 mg PO BID [facility] Last Admin: 11/09/19 08:43 Dose: 25 mg Isosorbide Dinitrate (Isordil) 20 mg PO BID [facility] Last Admin: 11/09/19 08:45 Dose: 20 mg Oxybutynin Chloride (Ditropan Xl) 10 mg PO DAILY [facility] Last Admin: 11/09/19 08:43 Dose: 10 mg Pantoprazole Sodium (Protonix) 40 mg PO DAILY [facility] Last Admin: 11/09/19 08:43 Dose: 40 mg Sodium Chloride (Flush - Normal Saline) 10 ml IVF Q12HR DANIELLE Last Admin: 11/09/19 08:45 Dose: 10 ml Sodium Chloride (Flush - Normal Saline) 10 ml IVF PRN PRN PRN Reason: Saline Flush Vital Signs & Weight: Vital Signs Temp Pulse Resp BP BP Pulse Ox 11/09/19 16:00 98.6 F 55 L 15 150/69 H 96 11/09/19 12:00 98.4 F 58 L 16 152/66 H 94 L 11/09/19 08:43 62 186/74 H Weight 147 lb 9.6 oz - Physical Exam General: alert & oriented x3 HEENT: mucus membranes moist Neck: supple neck Cardiac: regular rate and rhythm Lungs: bibasilar rales Neuro: grossly intact Abdomen: active bowel sounds Extremities: no edema Skin: clear Musculoskeletal: no pain - Labs Result Diagrams: 11/05/19 07:27 11/09/19 04:23 Troponin/CKMB CK-MB (CK-2) 1.8 ng/mL (0-6.6) 11/03/19 20:28 Troponin I 1.899 ng/mL (< 0.028) H* 11/05/19 04:16 - Telemetry Sinus rhythms and dysrhythmias: sinus rhythm - Assessment/Plan Assessment/Plan: 1. Acute on chronic systolic heart failure 2. Ischemic CM, presumed CAD. 3. HELLEN on CKD PLAN: - Will start PO lasix. - Hopefully her creatinine will continue to improve. - Sounds fluid up today.
--- NOTE | 2019-11-09 20:23 | PRG ---
DATE OF SERVICE: 11/09/2019 SUBJECTIVE: Patient was seen and examined at bedside and overnight events noted. Patient denies any shortness of breath or chest pain or palpitation. No history of nausea or vomiting or diarrhea or fever or chills or cramps. OBJECTIVE: GENERAL: This is an elderly female, in no apparent distress. VITAL SIGNS: Temperature 96. Heart rate 55. Respiratory rate 15. Blood pressure 150/69. HEENT: Atraumatic, normocephalic. Oral mucosa is moist NECK: Supple. CARDIOVASCULAR: S1, S2 heard. Rate and rhythm regular. RESPIRATORY: Clear to auscultation. GASTROINTESTINAL: Abdomen is soft. MUSCULOSKELETAL: No tenderness. No edema. DERMATOLOGIC: No skin rash. NEUROLOGIC: Alert and awake and oriented X3. No focal neurologic deficits. Moving all the extremities. PSYCHIATRIC: Mood and affect normal. LABORATORY DATA: Potassium 3.7, BUN is 53, and creatinine is 2.9. ASSESSMENT AND PLAN: 1. Acute kidney injury on chronic kidney disease, stage 4, with stable creatinine. Awaiting Cardiology decision on her current diuretic. 2. Cardiorenal syndrome. Follow with Cardiology. 3. Edema, chronic. 4. Hypertension. 5. Anemia. 6. Hypokalemia, replaced. Okay with Lasix at a lower dose and fluid restriction and close monitoring of renal function if needed. We will defer to Cardiology. Job ID: [id number]
[2019-11-09] MEDS ORDERED: Furosemide 20 MG TAB PO SCH (20:30)
[2019-11-09] MEDS: Atorvastatin Calcium 40 MG TAB PO SCH (20:38)
[2019-11-09] MEDS: Acetaminophen 325 MG TAB PO PRN (22:45)
[2019-11-10 05:29] LABS: Anion Gap 13 mmol/L (10-20); BUN (Urea Nitrogen) 51 mg/dL (9.8-20.1); Calc. Creatinine Clearance 14 mL/min (70-130); Calcium 7.9 mg/dL (7.8-10.44); Carbon Dioxide 21 mmol/L (23-31); Chloride 108 mmol/L (98-107); Estimated GFR-MDRD 15; Glucose 92 mg/dL (83-110); Potassium 4.1 mmol/L (3.5-5.1); Sodium 138 mmol/L (136-145)
[2019-11-10] MEDS ORDERED: Furosemide 40 MG TAB PO SCH (07:30)
[2019-11-10] MEDS ORDERED: Furosemide 20 MG TAB PO SCH (07:30)
[2019-11-10] MEDS: Carvedilol 3.125 MG TAB PO SCH (08:14)
[2019-11-10] MEDS: Aspirin 81 mg Enteric Coated Tablet PO SCH (08:14)
[2019-11-10] MEDS: Amiodarone 200 MG TAB PO SCH (08:14)
[2019-11-10] MEDS: Isosorbide Dinitrate 20 MG TAB PO SCH (08:15)
[2019-11-10] MEDS: Oxybutynin ER 5 MG TAB PO SCH (08:15)
[2019-11-10] MEDS: hydrALAZINE 25 MG TAB PO SCH (08:15)
--- NOTE | 2019-11-10 12:37 | PDOC.HOSPP ---
- Subjective Encounter Date: 11/10/19 Encounter Time: 08:30 Subjective: is ambulating in hallway no cough son at bedside liked her breakfast this am - Objective Vital Signs & Weight: Vital Signs (12 hours) Temp Pulse Resp BP BP BP Pulse Ox 11/10/19 12:09 97.9 F 56 L 16 154/70 H 98 11/10/19 08:15 58 L 164/72 H 95 11/10/19 08:09 98.0 F 58 L 18 164/72 H 95 11/10/19 03:13 97.8 F 53 L 16 167/72 H 97 Weight Weight 146 lb 4.8 oz I&O: 11/09/19 11/10/19 11/11/19 06:59 06:59 07:59 Intake Total 1230 970 Output Total 650 Balance 1230 320 Result Diagrams: 11/05/19 07:27 11/10/19 04:37 Hospitalist ROS - Medication Medications: Active Medications Generic Name Dose Route Start Last Admin Trade Name Freq PRN Reason Stop Dose Admin Acetaminophen 650 mg 11/03/19 22:57 11/09/19 22:45 Tylenol PO 650 mg Q4H PRN Administration Headache/Fever/Mild Pain (1-3) Amiodarone HCl 200 mg 11/06/19 09:00 11/10/19 08:14 Cordarone PO 200 mg DAILY DANIELLE Administration Aspirin 81 mg 11/04/19 09:00 11/10/19 08:14 Ecotrin PO 81 mg DAILY DANIELLE Administration Atorvastatin Calcium 40 mg 11/05/19 21:00 11/09/19 20:38 Lipitor PO 40 mg HS DANIELLE Administration Carvedilol 3.125 mg 11/05/19 21:00 11/10/19 08:14 Coreg PO 3.125 mg BID DANIELLE Administration Furosemide 20 mg 11/10/19 07:30 11/10/19 08:14 Lasix PO 20 mg DAILY-[facility] DANIELLE Administration Guaifenesin/Dextromethorphan 15 ml 11/03/19 22:57 11/07/19 21:00 Robitussin Dm PO 15 ml Q4H PRN Administration Cough Hydralazine HCl 25 mg 11/05/19 21:00 11/10/19 08:15 Apresoline PO 25 mg BID DANIELLE Administration Isosorbide Dinitrate 20 mg 11/05/19 21:00 11/10/19 08:15 Isordil PO 20 mg BID DANIELLE Administration Oxybutynin Chloride 10 mg 11/06/19 09:00 11/10/19 08:15 Ditropan Xl PO 10 mg DAILY DANIELLE Administration Pantoprazole Sodium 40 mg 11/06/19 09:00 11/10/19 08:14 Protonix PO 40 mg DAILY DANIELLE Administration Sodium Chloride 10 ml 11/04/19 09:00 11/10/19 08:15 Flush - Normal Saline IVF 10 ml Q12HR DANIELLE Administration - Exam General Appearance: awake alert Eye: PERRL, anicteric sclera ENT: no oropharyngeal lesions, moist mucosa Neck: supple, no JVD Heart: RRR, no murmur Respiratory: no wheezes, no rales Gastrointestinal: soft, non-tender, non-distended, normal bowel sounds Extremities: no cyanosis, no edema Neurological: cranial nerve grossly intact, no focal deficits Psychiatric: normal affect, A&O x 3 Hosp A/P (1) Acute CHF (congestive heart failure) Code(s): I50.9 - HEART FAILURE, UNSPECIFIED Status: Acute Qualifiers: Heart failure type: systolic Qualified Code(s): I50.21 - Acute systolic ( congestive) heart failure (2) Type 2 AMI (acute myocardial infarction) Code(s): I21.A1 - MYOCARDIAL INFARCTION TYPE 2 Status: Acute (3) Paroxysmal A-fib Code(s): I48.0 - PAROXYSMAL ATRIAL FIBRILLATION Status: Chronic (4) PVD (peripheral vascular disease) Code(s): I73.9 - PERIPHERAL VASCULAR DISEASE, UNSPECIFIED Status: Chronic (5) CKD (chronic kidney disease) stage 4, GFR 15-29 ml/min Code(s): N18.4 - CHRONIC KIDNEY DISEASE, STAGE 4 (SEVERE) Status: Chronic (6) Dyslipidemia Code(s): E78.5 - HYPERLIPIDEMIA, UNSPECIFIED Status: Chronic (7) HTN (hypertension) Code(s): I10 - ESSENTIAL (PRIMARY) HYPERTENSION Status: Chronic Qualifiers: Hypertension type: essential hypertension Qualified Code(s): I10 - Essential (primary) hypertension (8) Acute kidney injury superimposed on CKD Code(s): N17.9 - ACUTE KIDNEY FAILURE, UNSPECIFIED; N18.9 - CHRONIC KIDNEY DISEASE, UNSPECIFIED Status: Acute (9) Cardiomyopathy Code(s): I42.9 - CARDIOMYOPATHY, UNSPECIFIED Status: Chronic Qualifiers: Cardiomyopathy type: dilated - Plan renal function is stable, is on oral lasix low dose there is no sign of pna on cxr, off antibiotics continue aspirin, coreg, amiodarone, lipitor, bidil. no clinical or ekg evidence of acute SD, troponin elevation likely due to stress from LV stretching from chf exac and type 2 SD hemostable d/w patient and daughter at bedside. will need outpt close f/u with . dc plan per cardiology advice.
--- NOTE | 2019-11-10 13:33 | PRG ---
DATE OF SERVICE: 11/10/2019 SUBJECTIVE: Patient was seen and examined at bedside and overnight events noted. Patient denies any shortness of breath or chest pain or palpitation. No history of nausea or vomiting or diarrhea or fever or chills or cramps. OBJECTIVE: GENERAL: This is an elderly female, in no apparent distress. VITAL SIGNS: Temperature 97.9. Heart rate 63. Respiratory rate 16. Blood pressure 154/78. HEENT: Atraumatic, normocephalic. Oral mucosa is moist NECK: Supple. CARDIOVASCULAR: S1, S2 heard. Rate and rhythm regular. RESPIRATORY: Clear to auscultation. GASTROINTESTINAL: Abdomen is soft. MUSCULOSKELETAL: No tenderness. No edema. DERMATOLOGIC: No skin rash. NEUROLOGIC: Alert and awake and oriented X3. No focal neurologic deficits. Moving all the extremities. PSYCHIATRIC: Mood and affect normal. LABORATORY DATA: Potassium is 4.1, BUN is 51, and creatinine is 2.9. ASSESSMENT AND PLAN: 1. Acute kidney injury on chronic kidney disease stage 4, stable. 2. Cardiorenal syndrome. 3. Edema. 4. Hypertension. 5. Anemia. 6. . Need close monitoring of her fluid balance, which will be challenging. We will work with Cardiology and monitor labs closely. Job ID: [id number]
--- NOTE | 2019-11-10 14:03 | EKG ---
Test Reason : SOB Blood Pressure : / mmHG Vent. Rate : 076 BPM Atrial Rate : 076 BPM P-R Int : 180 ms QRS Dur : 098 ms QT Int : 446 ms P-R-T Axes : 035 023 117 degrees QTc Int : 501 ms Normal sinus rhythm Prolonged QT Abnormal ECG Confirmed by LU VICTORIA DO ([id number]), metropolitan editor TEJA HOANG ([id number]) on 11/10/2019 2:03:09 PM Referred By: Confirmed By:LU VICTORIA DO
[2019-11-10 15:35] VITALS: BP 166/70; TEMP 98.1
--- NOTE | 2019-11-10 21:06 | PDOC.CPN ---
- Subjective Date: 11/10/19 Time: 21:03 Interval history: She is doing much better today after lasix restarted. Creatinine stable. - Review of Systems General: denies: fever/chills, weight/appetite/sleep changes, night sweats, fatigue Respiratory: denies: cough, congestion, shortness of breath, exercise intolerance Cardiovascular: denies: chest pain, palpitation, edema, paroxysmal nocturnal dyspnea, orthopnea Gastrointestinal: denies: nausea, vomiting, diarrhea, constipation, abd pain, GI bleeding Musculoskeletal: denies: pain, tenderness, stiffness, swelling, arthritis/ arthralgias Neurological: denies: numbness, syncope, seizure, weakness - Objective Allergies/Adverse Reactions: Allergies Allergy/AdvReac Type Severity Reaction Status Date / Time No Known Allergies Allergy Verified 02/21/19 13:07 Vital Signs & Weight: Vital Signs Temp Pulse Resp BP Pulse Ox 11/10/19 15:32 98.1 F 57 L 16 166/70 H 98 11/10/19 12:09 97.9 F 56 L 16 154/70 H 98 Weight 146 lb 4.8 oz - Physical Exam General: alert & oriented x3 HEENT: mucus membranes moist Neck: supple neck Cardiac: regular rate and rhythm Lungs: clear to auscultation Neuro: grossly intact Abdomen: active bowel sounds Extremities: no edema Skin: clear Musculoskeletal: no pain - Labs Result Diagrams: 11/05/19 07:27 11/10/19 04:37 Troponin/CKMB CK-MB (CK-2) 1.8 ng/mL (0-6.6) 11/03/19 20:28 Troponin I 1.899 ng/mL (< 0.028) H* 11/05/19 04:16 - Telemetry Supraventricular conduction: atrial fibrillation - Assessment/Plan Assessment/Plan: 1. Acute on chronic systolic heart failure 2. Ischemic CM, presumed CAD. 3. HELLEN on CKD 4. Atrial fibrillation. PLAN: - PO lasix at 20 mg BID and double up if edema or SOB. - Creatinine stable, this may be her new baseline. - Cannot do anticoagulation for stroke prophylaxis due to hemoptysis. - Cannot do ACEI or ARB due to renal dysfunction. - May discharge home. - Follow up in 2 wks.
--- NOTE | 2019-11-11 16:26 | DIS ---
DATE OF ADMISSION: 11/03/2019 DATE OF DISCHARGE: 11/10/2019 DISCHARGE DISPOSITION: To home. PRIMARY DISCHARGE DIAGNOSES: Acute on chronic congestive heart failure exacerbation with systolic dysfunction, acute kidney injury on top of chronic kidney disease stage 4, type 2 myocardial infarction due to congestive heart failure exacerbation, peripheral vascular disease, chronic kidney disease stage 4, dyslipidemia, hypertension, dilated cardiomyopathy. PROCEDURES DONE DURING HOSPITALIZATION: The patient had chest x-ray done which showed cardiomegaly with pulmonary vascular congestion. There is also initial suspicion for possible pneumonia. Blood cultures x2, no growth. Influenza A and B antigens were negative. H and H 10 and 32, platelet count 125 with 69% neutrophils. Discharge BUN and creatinine are 51 and 2.9, admitting BUN and creatinine were 48 and 2.8. Troponin I was indeterminate, peaking up to 1.8. BNP 1879. INPATIENT CONSULT: Dr. Segura for Cardiology, Dr. Bueno for Nephrology. DISCHARGE PLAN: The patient to follow up with Dr. Mcfarland, her primary care physician on 11/13/2019 at 11 a.m. She needs to follow up with Dr. Segura on 01/09/2020 at 10:30 a.m. She needs to follow up with Dr. Bueno in 10 days. DISCHARGE MEDICATIONS: 1. Lasix 20 mg twice daily. 2. Oxybutynin extended release 10 mg daily. 3. Coreg 3.125 mg twice daily. 4. Isordil 20 mg twice daily. 5. Hydralazine 25 mg twice daily. 6. Lipitor 40 mg p.o. at bedtime. 7. Aspirin 81 mg p.o. daily. 8. Amiodarone 200 mg p.o. daily. ALLERGIES: NO KNOWN DRUG ALLERGIES. BRIEF COURSE DURING HOSPITALIZATION: The patient initially got admitted on the October with complaints of shortness of breath and cough. She was admitted to telemetry for acute on chronic CHF exacerbation with systolic dysfunction and possible pneumonia initially. She was on Lasix and had gentle diuresis done. She was also on broad-spectrum antibiotics which were discontinued after a repeat x-ray obtained did not reveal any infiltrate. Please note, the patient did not have any pneumonia. In view of the patient's CKD stage 4 and current diuresis, she developed acute kidney injury. She was closely monitored with interruption of Lasix. All through her stay, she has been ambulating. Her exertional shortness of breath has resolved. The patient was monitored for extended period of time with stabilization of her creatinine. She is currently stable on 20 mg of Lasix twice daily. Please see a [id number] documentation for the day of discharge on [employer]. Job ID: [id number]
== END 2019-11-10 19:06 | disposition home or self-care (01) | DRG 280 ==
LOC: ERS 20:09 → 2NO 23:06
PROVIDERS: ADMIT Internal Medicine; ATTEND Internal Medicine
DX: I13.0 Hypertensive heart and chronic kidney disease with heart failure and stage 1 through stage 4 chronic kidney disease, or unspecified chronic kidney disease (principal); I50.23 Acute on chronic systolic (congestive) heart failure; I21.A1 Myocardial infarction type 2; N18.4 Chronic kidney disease, stage 4 (severe); N17.9 Acute kidney failure, unspecified; E78.5 Hyperlipidemia, unspecified; I42.0 Dilated cardiomyopathy; I73.9 Peripheral vascular disease, unspecified; R19.7 Diarrhea, unspecified; E87.6 Hypokalemia; I48.0 Paroxysmal atrial fibrillation; D64.9 Anemia, unspecified; Z98.890 Other specified postprocedural states; Z90.49 Acquired absence of other specified parts of digestive tract; Z90.711 Acquired absence of uterus with remaining cervical stump; I25.5 Ischemic cardiomyopathy
CPT/HCPCS: 36415; 71045; 80048; 80053; 82553; 83605; 83880; 84443; 84484; 85025; 85730; 87040; 87070; 87205; 87804; 93005; 93798; 94640; 96365; 96367; 96375; J0456; J0696; J1644; J1650; J1940; J3490; J7620; S0028

== ENCOUNTER 2020-06-19 18:42 | Inpatient (IN) | payer MEDICARE, BC, OTHER ==
[2020-06-19 19:15] LABS: #Eosinphils 0.1 thou/uL (0.0-0.7); #Lymphocytes 1.8 thou/uL (1.20-3.40); #Monocytes 0.7 thou/uL (0.11-0.59); %Basophils 0.6 % (0.0-1.0); %Eosinophils 1.1 % (0.0-10.0); %Monocytes 10.6 % (0.0-10.0); %Neutrophils 60.7 % (42.0-75.0); Hemoglobin 10.7 g/dL (12.0-16.0); Mean Corpuscular HGB CONC 34.8 g/dL (32.0-36.0); Mean Corpuscular Hemoglobin 33.4 pg (27.0-31.0); Mean Corpuscular Volume 96.1 fL (78.0-98.0); Mean Platelet Volume 9.8 fL (7.4-10.4); Platelet Count 158 thou/uL (130-400); White Blood Cell (WBC) Count 6.6 thou/uL (4.8-10.8)
[2020-06-19] MEDS ORDERED: Morphine 4 MG/ML VIAL ONE (19:21)
[2020-06-19] MEDS ORDERED: Ondansetron PF 4 MG/2 ML Vial ONE (19:21)
[2020-06-19 19:22] LABS: PTT 28.1 sec (22.9-36.1)
[2020-06-19 19:23] LABS: Prothrombin Time 13.8 sec (12.0-14.7)
[2020-06-19 19:38] LABS: ALT (SGPT) 31 U/L (8-55); AST (SGOT) 30 U/L (5-34); Albumin 3.9 g/dL (3.4-4.8); Alkaline Phosphatase 76 U/L (40-110); Anion Gap 16 mmol/L (10-20); BUN (Urea Nitrogen) 62 mg/dL (9.8-20.1); Bilirubin, Total 0.6 mg/dL (0.2-1.2); Calc. Creatinine Clearance 0 mL/min (70-130); Calcium 8.6 mg/dL (7.8-10.44); Carbon Dioxide 23 mmol/L (23-31); Chloride 106 mmol/L (98-107); Estimated GFR-MDRD 13; Globulin 3.2 g/dL (2.4-3.5); Glucose 129 mg/dL (83-110); Protein, Total 7.1 g/dL (6.0-8.3); Sodium 141 mmol/L (136-145)
--- NOTE | 2020-06-19 19:51 | RAD ---
AP PELVIS: 06/19/20 HISTORY: Fall. Bones are demineralized. Arthritic changes of the lower lumbar spine are seen. A left femoral neck fr acture is present. IMPRESSION: Left femoral neck fracture. POS: ELAINE
--- NOTE | 2020-06-19 20:03 | RAD ---
LEFT SHOULDER THREE VIEWS: 06/19/20 HISTORY: Slipped and fell. There is a large Hill-Sachs deformity with avulsion of the greater tuberosity. This is associated wit h an infraglenoid anterior shoulder dislocation. Bone are demineralized. Old left humeral neck fract ure is noted. IMPRESSION: Shoulder dislocation. POS: ELAINE
--- NOTE | 2020-06-19 20:05 | RAD ---
PORTABLE CHEST: 06/19/20 HISTORY: Slipped and fell. COMPARISON: A 11/06/19 exam. Heart size is enlarged. There are atherosclerotic changes of the aorta. The lungs are clear of infilt rates. The bones are demineralized. Large Hill-Sachs deformity and an infraglenoid anterior shoulder dislocation of the left are noted. IMPRESSION: 1. Left shoulder dislocation. 2. Cardiomegaly. 3. No active intrathoracic disease. POS: ELAINE
--- NOTE | 2020-06-19 20:08 | RAD ---
LEFT HIP TWO VIEWS: 06/19/20 HISTORY: Slipped and fell. There is a left femoral neck fracture present. Bones are demineralized. IMPRESSION: Left femoral neck fracture. POS: ELAINE
--- NOTE | 2020-06-19 20:28 | CT ---
CT OF CERVICAL SPINE PERFORMED WITHOUT CONTRAST ENHANCEMENT: 06/19/20 HISTORY: Fall, neck and shoulder pain. The vertebral bodies are normal in height. Degenerative osteophytic changes seen in the lower cervica l spine region. Facets are in normal alignment. There are prominent degenerative facet changes presen t. There is mild left sided foraminal narrowing at C2-3. More pronounced left sided foraminal narrowi ng at C3-4 and C4-5. There is no CT evidence for fracture. The lung apices show chronic appearing sarahi nge. Carotid bulb calcifications noted. IMPRESSION: No CT evidence of fracture of the cervical spine. POS: ELAINE
--- NOTE | 2020-06-19 20:54 | CT ---
CT BRAIN WITHOUT CONTRAST: 06/19/20 HISTORY: Fall, headache. COMPARISON: 02/23/19. FINDINGS: Bilateral basal ganglia calcifications and changes of mild chronic small vessel ischemic disease and cortical atrophy are again seen. The ventricular size is stable and the basilar cisterns patent. No evidence of acute infarct, hemorrhage, midline shift or abnormal extra-axial fluid collections see n. The bony calvarium is intact. The visualized paranasal sinuses and mastoid air cells are well aerated . IMPRESSION: No Ct evidence of acute intracranial process.
[2020-06-19] MEDS ORDERED: Ketamine 50 MG/ML (10ML VIAL) ONE (20:58)
[2020-06-19] MEDS ORDERED: hydrALAZINE 25 MG TAB ONE (22:44)
[2020-06-19] MEDS ORDERED: Isosorbide Dinitrate 20 MG TAB PO SCH (23:00)
[2020-06-19] MEDS ORDERED: hydrALAZINE 25 MG TAB PO SCH (23:00)
[2020-06-19] MEDS ORDERED: HYDROcodone/Acetaminophen 5/325 mg Tablet ONE (23:07)
--- NOTE | 2020-06-19 23:35 | HP ---
REQUESTING PHYSICIAN: Dr. Fitzpatrick. CONSULTATIONS: Orthopedics, Dr. Ortega. 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 She was brought to the emergency department, where she underwent evaluation and examination, was noted to have an inferior shoulder dislocation with fracture and a left hip fracture, at which time we were asked to evaluate the patient for admission and obtain Orthopedic consultation. The emergency room staff attempted a closed reduction of the shoulder and was unsuccessful. They discussed this with Dr. Ortega, who told them that he would do the reduction in the operating room prior to doing her hip surgery. The patient denied any loss of consciousness. She has not been on her Eliquis for several months. ALLERGIES: NSAIDS. CURRENT MEDICATIONS: 1. Baby aspirin. 2. Atorvastatin. 3. Furosemide. 4. Hydralazine. 5. Amiodarone. 6. Carvedilol. 7. Oxybutynin chloride. 8. Isosorbide dinitrate. 9. Calcitriol. PAST MEDICAL HISTORY: Myocardial infarction, hyperlipidemia, , chronic kidney disease. PAST SURGICAL HISTORY: Appendectomy, hysterectomy, tonsillectomy, right wrist surgery, right lower extremity stent placement. SOCIAL HISTORY: The patient lives at home with family. She denies drug, tobacco, or alcohol use. REVIEW OF SYSTEMS: A 10-point review of systems is negative except as otherwise stated. PHYSICAL EXAMINATION: VITAL SIGNS: Blood pressure 195/72, heart rate 69, respirations 19, oxygen saturation 99% on 2 L via nasal cannula, and temperature is 98.5. GENERAL: The patient is resting comfortably in bed. She is awake, alert, conversant, and appropriate. [place] Coma Scale is 15. HEENT: Head is normocephalic and atraumatic. Eyes, extraocular motion intact. PERRLA bilaterally. Ears are atraumatic without discharge. Nose is atraumatic without discharge. Oropharynx is clear. NECK: Nontender. Trachea is midline with no JVD. CHEST: Clear to auscultation with good inspiratory and expiratory effort. HEART: Regular rate and rhythm. ABDOMEN: Soft, flat, and nontender with active bowel sounds. EXTREMITIES: Neurovascularly intact x4. Left upper extremity has tenderness to palpation to the left shoulder consistent with her persistent dislocation and fracture. She is immobilized in a sling. Pelvis is stable with tenderness to palpation to her left hip consistent with her fracture. BACK: By report is atraumatic and nontender. LABORATORY FINDINGS: White blood cell count 6.6, hemoglobin 10.7, hematocrit 30.7, platelets 158. Sodium 141, potassium 4.0, chloride 106, CO2 of 23, BUN 62, creatinine 3.27, glucose 129. LFTs are unremarkable. PT 14, INR 1.0, and PTT 28. RADIOGRAPHIC REPORT: CT of the brain without contrast shows no CT evidence of acute intracranial process. CT of the C-spine without contrast shows no CT evidence of fracture of the cervical spine. AP chest x-ray shows a left shoulder dislocation, cardiomegaly and no active intrathoracic disease. Views of the left shoulder show an inferior shoulder dislocation with a large Hill-Sachs deformity with avulsion of the greater tuberosity. AP pelvis shows a left femoral neck fracture. Views of the left femur again demonstrate the left femoral neck fracture. ASSESSMENT/PLAN: 1. Status post ground level fall. 2. Left shoulder dislocation, persistent. 3. Left femoral neck fracture. 4. History of coronary artery disease, hypertension, chronic kidney disease. 5. Acute pain secondary to trauma. Plan will be to admit the patient to the surgical floor. She will have pain control, pulmonary toilet, gastritis, and mechanical VTE prophylaxis. We will make her n.p.o. after midnight. The patient will be restarted on her home medications, specifically her blood pressure medicines tonight. Tomorrow, she will undergo surgery and reduction of her orthopedic injuries. Postoperatively, we will begin physical and occupational therapy and then discuss placement. The evaluation, examination, laboratory, and radiographic findings were discussed with Dr. Dixon after this dictation. Job ID: [id number]
[2020-06-20] MEDS ORDERED: Morphine 2 MG/ML VIAL SLOW IVP PRN (00:38)
[2020-06-20] MEDS ORDERED: Morphine 4 MG/ML VIAL SLOW IVP PRN (00:38)
[2020-06-20] MEDS ORDERED: Dextrose 50% Abboject 50 ML SYRINGE SLOW IVP PRN (00:38)
[2020-06-20] MEDS ORDERED: Cyclobenzaprine 10 MG TAB PO PRN (00:38)
[2020-06-20] MEDS ORDERED: Ondansetron PF 4 MG/2 ML Vial IVP PRN (00:38)
[2020-06-20] MEDS ORDERED: Ondansetron ODT 4 MG TAB PO PRN (00:38)
[2020-06-20] MEDS ORDERED: traMADol HCl 50 MG TAB PO PRN ×3 (00:38→09:15)
[2020-06-20] MEDS ORDERED: Dextrose 5% in Water 1,000 ML IV PRN (00:38)
[2020-06-20 01:25] VITALS: BMI 31.4
[2020-06-20] MEDS: Sodium Chloride 0.9% 1,000 ML IV SCH ×2 (01:59→11:51)
[2020-06-20 05:36] LABS: #Lymphocytes 1.2 thou/uL (1.20-3.40); #Neutrophils 9.1 thou/uL (1.40-6.50); %Basophils 0.1 % (0.0-1.0); %Eosinophils 0.2 % (0.0-10.0); %Lymphocytes 10.9 % (21.0-51.0); %Monocytes 8.8 % (0.0-10.0); Hemoglobin 10.3 g/dL (12.0-16.0); Mean Corpuscular HGB CONC 32.3 g/dL (32.0-36.0); Mean Corpuscular Hemoglobin 31.9 pg (27.0-31.0); Mean Corpuscular Volume 99.1 fL (78.0-98.0); Mean Platelet Volume 10.1 fL (7.4-10.4); Platelet Count 146 thou/uL (130-400); RBC Distribution Width 12.2 % (11.5-14.5); Red Blood Cell (RBC) Count 3.22 mill/uL (4.20-5.40); White Blood Cell (WBC) Count 11.4 thou/uL (4.8-10.8)
[2020-06-20] MEDS: Acetaminophen 325 MG TAB PO SCH ×3 (05:37→17:14)
[2020-06-20 05:42] LABS: Anion Gap 15 mmol/L (10-20); BUN (Urea Nitrogen) 60 mg/dL (9.8-20.1); Calc. Creatinine Clearance 16 mL/min (70-130); Calcium 8.5 mg/dL (7.8-10.44); Carbon Dioxide 24 mmol/L (23-31); Chloride 108 mmol/L (98-107); Estimated GFR-MDRD 14; Glucose 126 mg/dL (83-110); Phosphorus 4.1 mg/dL (2.3-4.7); Sodium 143 mmol/L (136-145)
--- NOTE | 2020-06-20 07:22 | RAD ---
LEFT HUMERUS 1 VIEW: Date: 06/19/2020 HISTORY: Attempted reduction. FINDINGS: The shoulder dislocation is unchanged in appearance. IMPRESSION: No change in shoulder dislocation. POS: ELAINE
[2020-06-20] MEDS ORDERED: CEFAZOLIN 2 GM in Premix Bag 1 BAG IVPB SCH (07:45)
[2020-06-20 08:13] LABS: SARS-CoV-2 NAA Rapid Test Not Detected (NotDetected)
[2020-06-20] MEDS: Carvedilol 3.125 MG TAB PO SCH ×2 (08:28→20:24)
[2020-06-20] MEDS: Calcitriol 0.25 MCG CAP PO SCH (08:34)
[2020-06-20] MEDS: Amiodarone 200 MG TAB PO SCH (08:34)
[2020-06-20] MEDS: Famotidine 20 MG TAB PO SCH (08:34)
--- NOTE | 2020-06-20 08:34 | CON ---
DATE OF CONSULTATION: 06/20/2020 REQUESTING PHYSICIAN: Trauma Services. CONSULTING PHYSICIAN: Dr. Ortega. REASON FOR CONSULTATION: Left hip fracture and left shoulder dislocation. 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 She had complaints of left hip and left shoulder pain when she was brought to our emergency department. She underwent evaluation and was noted to have a left hip fracture as well as a left inferior shoulder dislocation. We have been consulted for this reason. An attempted closed reduction was performed in the emergency department. This was unsuccessful. She denies any head injury or loss of consciousness. She has previously been on Eliquis, but has not been on it for several months. PAST MEDICAL HISTORY: Significant for myocardial infarction, hyperlipidemia, chronic kidney disease. PAST SURGICAL HISTORY: Appendectomy, hysterectomy, tonsillectomy, right wrist surgery, right lower extremity stent placement, bilateral carotid endarterectomies. SOCIAL HISTORY: The patient lives at home with family. She denies any drug, tobacco, or alcohol use. She normally ambulates independently. ALLERGIES: NSAIDS. FAMILY HISTORY: Reviewed and noncontributory. REVIEW OF SYSTEMS: Ten-point review of systems conducted and otherwise negative except for stated above. PHYSICAL EXAMINATION: VITAL SIGNS: Shows current vital signs including temperature of 97.6, pulse of 60, respiratory rate of 16, O2 saturation of 93% on room air, blood pressure of 170/69. GENERAL: The patient is awake and alert. She is lying supine in bed. She does have a son present with her in the hospital room at this time. She is pleasant and cooperative with exam. HEENT: Head is normocephalic and atraumatic. NECK: Supple. Trachea midline. RESPIRATORY: Breathing is nonlabored. EXTREMITIES: Evaluation of the left upper extremity shows a sling to be intact. She has intact sensation over the shoulder. She has intact distal neurovascular status. She is able to actively move at the wrist and elbow. Evaluation of the left lower extremity shows the leg to be shortened and externally rotated. She is able to wiggle her toes and move her foot and ankle. Distal neurovascular status intact. Skin intact overlying the left hip. Evaluation of the patient's right side including right upper extremity, right lower extremity show no acute deformities or injuries. She is able to move these extremities without any difficulty. RADIOGRAPHIC IMAGING: Reviewed today with Dr. Ortega including views of the left humerus and left hip demonstrates a displaced left femoral neck fracture on the left hip. Views of the left humerus demonstrate a dislocated shoulder with what appears to be a well healed old spiral fracture of the humeral shaft. There is evidence of a large Hill-Sachs deformity with avulsion of the greater tuberosity. This is an inferior anterior shoulder dislocation. ASSESSMENT: Status post fall with left shoulder dislocation and left femoral neck fracture. PLAN: The patient has been n.p.o. At this time, we will plan for surgical intervention this morning. This will include a left hip hemiarthroplasty as well as a closed versus open reduction of the left shoulder. Risks, benefits, and alternatives discussed at length with the patient and her son at bedside. They verbalized understanding of this and are amenable to this plan of care. They are ready to go forward with surgery. We will get this set up for them. The patient is admitted to the Trauma Service. Job ID: [id number]
[2020-06-20] MEDS: hydrALAZINE 10 MG TAB PO SCH ×2 (08:35→20:23)
[2020-06-20] MEDS: Isosorbide Dinitrate 20 MG TAB PO SCH ×2 (08:37→20:24)
[2020-06-20] MEDS: Oxybutynin ER 5 MG TAB PO SCH (08:37)
[2020-06-20] MEDS ORDERED: Furosemide 20 MG TAB PO SCH (09:00)
[2020-06-20] MEDS ORDERED: Promethazine HCl 25 MG/ML VIAL SLOW IVP PRN (11:48)
[2020-06-20] MEDS ORDERED: Ondansetron HCl/PF 4 MG/2 ML Vial IVP PRN (11:48)
[2020-06-20] MEDS ORDERED: Promethazine HCl 25 MG/ML VIAL IM PRN (11:48)
[2020-06-20] MEDS ORDERED: Glycopyrrolate 0.2 MG/ML 5 ML SYRINGE ONE (12:00)
[2020-06-20] MEDS ORDERED: Ondansetron PF 4 MG/2 ML Vial ONE ×3 (12:00→12:01)
[2020-06-20] MEDS ORDERED: PROPOFOL 200 MG/20 ML VIAL ONE ×2 (12:00→12:01)
[2020-06-20] MEDS ORDERED: Lidocaine 1% PF 5 ML VIAL ONE (12:00)
[2020-06-20] MEDS ORDERED: Rocuronium Bromide 10 MG/ML (10ML VIAL) ONE (12:00)
[2020-06-20] MEDS ORDERED: PHENYLEPHRINE-NS 100 MCG/ML 10 ML SYRINGE ONE (12:01)
[2020-06-20] MEDS ORDERED: Ketorolac Tromethamine 30 MG/ML VIAL ONE (12:01)
[2020-06-20] MEDS ORDERED: EPHEDRINE 25 MG/5 ML SYRINGE ONE (12:01)
[2020-06-20] MEDS ORDERED: Dexamethasone 20 MG/5 ML VIAL ONE (12:01)
[2020-06-20] MEDS ORDERED: Bupivacaine HCl 0.5%/Epinephrine 1:200,000/PF 30 ml Vial ONE (12:01)
--- NOTE | 2020-06-20 13:32 | RAD ---
LEFT HUMERUS ONE VIEW: 06/20/20 HISTORY: Post reduction. Single C-arm projection shows reduction of the dislocation with prominent Hill-Sachs deformity and a vulsive injury of the greater tuberosity again demonstrated. IMPRESSION: Reduction of dislocation as seen on this single projection. POS: OFF
--- NOTE | 2020-06-20 14:22 | OP ---
DATE OF PROCEDURE: 06/20/2020 PROCEDURES PERFORMED: 1. Closed reduction of left shoulder dislocation. 2. Left hip hemiarthroplasty. PREOPERATIVE DIAGNOSES: Left femoral neck fracture and left shoulder fracture dislocation. POSTOPERATIVE DIAGNOSES: Left femoral neck fracture and left shoulder fracture dislocation. COMPLICATIONS: None. ESTIMATED BLOOD LOSS: 150 mL. WAREHOUSE SHIPPING ASSOCIATE: Herbie Mendez. IMPLANT: DePuy size 3 basic press-fit stem with a 45 mm bipolar shell and a +5 neck length. INDICATIONS FOR PROCEDURE: Ms. Yo is an 84-year-old female, who has fallen fracturing her left femoral neck as well as dislocating and fracturing her left shoulder. She was indicated for closed reduction of the shoulder after failed attempt in the emergency department. She was also indicated for hemiarthroplasty of the hip to restore the ability to mobilize and prevent complications of prolonged bedrest. DESCRIPTION OF PROCEDURE: Ms. Yo was identified in the preoperative holding area. Her correct extremity was marked. She was carried to the operating room. She was positioned supine. General anesthesia was induced. A multidisciplinary time-out was performed. The left upper extremity at this point was evaluated with intraoperative x-ray. We identified the anterior and inferior dislocation. We pulled traction as well as disengaged the proximal humerus from the glenoid. After we pulled traction, we felt a palpable clunk. X-rays then showed that the humerus was well seated in the glenoid vault. The shoulder was reduced. I would place the shoulder in a sling. At this point, we converted the patient to the lateral decubitus position. We prepped and draped her left lower extremity. We then performed a posterior approach to the hip, dissecting down through the subcutaneous tissues to the fascia, which was opened. We exposed the underlying short external rotators of the hip and identified the piriformis tendon. We then isolated the piriformis tendon and left it attached. We then performed a transection of the gemelli muscle and the capsule. This allowed exposure of the underlying hip joint. We removed the broken head and neck fragments. We then performed a new osteotomy with an oscillating saw at the femoral neck. At this point, we prepared the femoral canal. We entered the canal and lateralized. We then reamed to a size 4. Next, we broached up to a size 3. This gave us a good fit. We trialed off the broach. A +5 length was appropriate. At this point, we removed our trial components and placed our final component after thorough irrigation. Again, the hip was reduced. We then repaired the capsule and the gemelli muscle through drill holes and a #5 Ethibond suture. We irrigated once more, then closed in layers. The fascia was closed with #2 Vicryl suture. The patient was taken to the recovery room after dressings were applied. The printing assistant surgeon was responsible for positioning the patient, preparing the injured extremity, applying the tourniquet, and assisting in preparation for surgery. The printing assistant was instrumental in reducing the injured limb by applying traction and reduction maneuvers as well as holding retractors and reduction tools. The printing assistant also was instrumental in assisting in exposure throughout the operation using appropriate retractors. The printing assistant participated in closure of the operative site as well as dressing application and splint application. Job ID: [id number]
--- NOTE | 2020-06-20 14:31 | RAD ---
LEFT HIP: 06/20/20 One view. HISTORY: Postop hemiarthroplasty. FINDINGS/IMPRESSION: Postop changes are noted with skin sidney. Left hip prosthesis has been placed and components appear adequately positioned on this single projection. POS: AGW
--- NOTE | 2020-06-20 14:35 | RAD ---
AP PELVIS: 06/20/20 HISTORY: Status post hip hemiarthroplasty. Postop. FINDINGS/IMPRESSION: Postop changes of the left hip noted with lateral skin sidney. Left hip prosthesis has been placed. Components appear adequately positioned on this AP projection. Bony pelvis is intact. Mild degenerati ve changes at the right hip. POS: AGW
[2020-06-20] MEDS: CEFAZOLIN 2 GM in Premix Bag 1 BAG IVPB SCH (17:13)
--- NOTE | 2020-06-20 19:11 | PRG ---
DATE OF SERVICE: 06/20/2020 Ms. Yo has been seen, examined, and chart reviewed. Agree with treatment and plan outlined by Jerald Hurd. Status post ORIF of left femoral neck fracture and shoulder reduction. She has chronic kidney disease. We asked her ear flap binder to follow her while she is in the hospital, avoid blood draws above the wrist. Job ID: [id number]
--- NOTE | 2020-06-20 19:15 | CON ---
DATE OF CONSULTATION: 06/20/2020 CONSULTING PHYSICIAN: Dr. Dixon. REASON FOR CONSULTATION: Chronic kidney disease. REASON FOR ADMISSION: Fall. HISTORY OF PRESENT ILLNESS: An 84-year-old female with a history of chronic kidney disease, hypertension, hyperlipidemia, came to the hospital after a fall and was found to have a femoral fracture and left shoulder dislocation. She had surgery today. Nephrology consult for chronic kidney disease care. The patient was seen postop and her son was at the bedside. No fever or chills. No nausea or vomiting reported. PAST MEDICAL HISTORY: Positive for; 1. Chronic kidney disease. 2. Hyperlipidemia. 3. Hypertension. 4. Coronary artery disease. PAST SURGICAL HISTORY: 1. Appendectomy. 2. Hysterectomy. 3. Tonsillectomy. 4. Stent placement. HOME MEDICATIONS: Reviewed. ALLERGIES: NSAIDS. SOCIAL HISTORY: No smoking, alcohol, or illicit drug abuse. FAMILY HISTORY: No history of kidney disease. REVIEW OF SYSTEMS: CONSTITUTIONAL: Negative for weight loss or gain, ability to conduct usual activities. SKIN: Negative for rash, itching. EYES: Negative for double vision, pain. ENT/MOUTH: Negative for nose bleeding, neck stiffness, pain, tenderness. CARDIOVASCULAR: Negative for palpitations, dyspnea on exertion, orthopnea. RESPIRATORY: Negative for shortness of breath, wheezing, cough, hemoptysis, fever or night sweats. GASTROINTESTINAL: Negative for poor appetite, abdominal pain, heartburn, nausea, vomiting, constipation, or diarrhea. GENITOURINARY: Negative for urgency, frequency, dysuria, nocturia. MUSCULOSKELETAL: Negative for pain, swelling. NEUROLOGIC/PSYCHIATRIC: Negative for anxiety, depression. ALLERGY/IMMUNOLOGIC: Negative for skin rash, bleeding tendency. PHYSICAL EXAMINATION: GENERAL: This is a well-built female, in no apparent distress. VITAL SIGNS: Temperature 97.6, pulse 60, respiratory rate 18, blood pressure 170/69. HEENT: Atraumatic, normocephalic. Oral mucosa is moist. NECK: Supple. CV: S1, S2 heard. Rate and rhythm regular. RESPIRATORY: Clear. GI: Abdomen is soft. MUSCULOSKELETAL: No tenderness. No edema. DERMATOLOGIC: No skin rash. NEUROLOGIC: Alert and awake. PSYCHIATRIC: Mood and affect normal. LABORATORY DATA: Hemoglobin is 10.3. Potassium 4.0, BUN is 68, and creatinine is 3.09. ASSESSMENT AND PLAN: 1. Acute kidney injury on chronic kidney disease stage 5, stable. No acute indication for dialysis. 2. Edema. 3. Hypertension. 4. Anemia of chronic disease. Avoid nephrotoxins. We will monitor renal function closely perioperatively. Thank you for the consult. Job ID: [id number]
[2020-06-20] MEDS: Atorvastatin Calcium 40 MG TAB PO SCH (20:23)
[2020-06-21] MEDS: Acetaminophen 325 MG TAB PO SCH ×4 (00:13→17:36)
[2020-06-21] MEDS: CEFAZOLIN 2 GM in Premix Bag 1 BAG IVPB SCH ×2 (01:34→11:10)
[2020-06-21 08:15] LABS: Mean Corpuscular HGB CONC 33.1 g/dL (32.0-36.0); Mean Corpuscular Hemoglobin 32.7 pg (27.0-31.0); Mean Corpuscular Volume 98.8 fL (78.0-98.0); RBC Distribution Width 12.3 % (11.5-14.5); Red Blood Cell (RBC) Count 2.14 mill/uL (4.20-5.40); White Blood Cell (WBC) Count 10.7 thou/uL (4.8-10.8)
[2020-06-21 08:36] LABS: Anion Gap 13 mmol/L (10-20); BUN (Urea Nitrogen) 51 mg/dL (9.8-20.1); Calc. Creatinine Clearance 15 mL/min (70-130); Carbon Dioxide 22 mmol/L (23-31); Chloride 109 mmol/L (98-107); Estimated GFR-MDRD 13; Glucose 102 mg/dL (83-110); Magnesium 1.7 mg/dL (1.6-2.6); Phosphorus 3.7 mg/dL (2.3-4.7); Potassium 3.7 mmol/L (3.5-5.1); Sodium 140 mmol/L (136-145)
[2020-06-21 08:40] LABS: #Eosinphils 0.1 thou/uL (0.0-0.7); #Lymphocytes 1.2 thou/uL (1.20-3.40); #Monocytes 1.3 thou/uL (0.11-0.59); #Neutrophils 8.1 thou/uL (1.40-6.50); %Basophils 0.4 % (0.0-1.0); %Eosinophils 0.6 % (0.0-10.0); %Lymphocytes 11.3 % (21.0-51.0); %Monocytes 12.3 % (0.0-10.0); %Neutrophils 75.4 % (42.0-75.0); Mean Platelet Volume 10.2 fL (7.4-10.4); Platelet Count 115 thou/uL (130-400); Platelet Morphology Comment Appears Decreased
--- NOTE | 2020-06-21 10:22 | PRG ---
DATE OF SERVICE: 06/21/2020 SUBJECTIVE: Patient was seen and examined at bedside and overnight events noted. Patient denies any shortness of breath or chest pain or palpitation. No history of nausea or vomiting or diarrhea or fever or chills or cramps. OBJECTIVE: GENERAL: This is a well-built female, in no apparent distress. VITAL SIGNS: Temperature 99.6. Heart Rate 80. Respiratory rate 16. Blood Pressure 120/52. HEENT: Atraumatic, normocephalic. Oral mucosa is moist. NECK: Supple. CARDIOVASCULAR: S1, S2 heard. Rate and rhythm regular. RESPIRATORY: Clear to auscultation. GASTROINTESTINAL: Abdomen is soft. MUSCULOSKELETAL: No tenderness. No edema. DERMATOLOGIC: No skin rash. NEUROLOGIC: Alert and awake and oriented x3. No focal neurologic deficits. Moving all the extremities. PSYCHIATRIC: Mood and affect normal. LABORATORY DATA: Potassium 3.7, BUN is 51, and creatinine is 3.2. ASSESSMENT AND PLAN: 1. Acute kidney injury on chronic kidney disease, stage 5. Renal function is stable. Family does not wish to pursue any plans for dialysis at this point renal function is stable, we will continue to monitor. 2. Edema, stable. We will hold diuretics for now. 3. History of hypertension. 4. Anemia of chronic disease. Plan to monitor renal function closely. Avoid nephrotoxins. We will hold diuretics for now while she is in the hospital and use as needed. Job ID: [id number]
[2020-06-21] MEDS: Carvedilol 3.125 MG TAB PO SCH ×2 (11:05→20:08)
[2020-06-21] MEDS: Isosorbide Dinitrate 20 MG TAB PO SCH ×2 (11:05→20:09)
[2020-06-21] MEDS: Amiodarone 200 MG TAB PO SCH (11:05)
[2020-06-21] MEDS: Famotidine 20 MG TAB PO SCH (11:06)
[2020-06-21] MEDS: Oxybutynin ER 5 MG TAB PO SCH (11:06)
[2020-06-21] MEDS: hydrALAZINE 25 MG TAB PO SCH ×2 (11:06→20:09)
--- NOTE | 2020-06-21 13:28 | EKG ---
Test Reason : Blood Pressure : / mmHG Vent. Rate : 070 BPM Atrial Rate : 070 BPM P-R Int : 150 ms QRS Dur : 100 ms QT Int : 472 ms P-R-T Axes : 012 035 060 degrees QTc Int : 509 ms Normal sinus rhythm Nonspecific ST and T wave abnormality Prolonged QT Abnormal ECG Confirmed by ZACHERY STARR DO ([id number]), publication editor TEJA HOANG ([id number]) on 06/21/2020 1:28:25 PM Referred By: Confirmed By:ZACHERY STARR DO
--- NOTE | 2020-06-21 17:34 | PRG ---
DATE OF SERVICE: 06/21/2020 SUBJECTIVE: The patient was seen on morning rounds. Her son is at the bedside. Ms. Yo is postop day #1, status post ORIF of left shoulder dislocation and left femoral neck fracture. The patient was actually seen in bed. She appears to be a little pale. Hemoglobin noted to drop to 7. The patient has CKD. Nephrology has been consulted, appreciate their input. The patient is more lethargic today according to the patient's family at the bedside. She did get up to eat breakfast, but has been fairly weak since then. No other changes and does remain hemodynamically stable, otherwise. OBJECTIVE: VITAL SIGNS: Temperature is 97.7, blood pressure 131/50, heart rate is 64, breathing 16 times per minute, 97% on room air. GENERAL: This is an 84-year-old pale female, sitting up. She is sleepy, will arouse to stimuli. HEENT: Normocephalic, atraumatic. Trachea is midline. She does have pale conjunctiva. RESPIRATORY: Equal rise and fall. Bilateral breath sounds clear. CARDIOVASCULAR: Regular rate and rhythm. ABDOMEN: Soft. PELVIS: Stable. She does have a dry surgical incision dressing. MUSCULOSKELETAL: Upper extremity sling does not appear to be displaced. Strong pulses. Warm extremities. NEURO: Withdrawn. GCS of 13, taken 1 off for confusion, 1 for eye opening to verbal only. PSYCH: Withdrawn. LABORATORY DATA: From today, white blood cell count is 10.7, platelets are 115, hemoglobin and hematocrit 7.0 and 21.2 respectively. Sodium is 140, potassium 3.7, chloride is 109, CO2 is 22, creatinine is 3.26, BUN is 51, glucose is 102, calcium 8.0, phos is 3.7, and mag of 1.7. ASSESSMENT AND PLAN: 1. Status post ground-level fall. 2. Left femoral neck fracture, status post ORIF. 3. Left shoulder dislocation, status post reduction in the OR. 4. History of coronary artery disease. 5. Chronic kidney disease, stage 5. 6. Hypertension. PLAN: 1. Given the patient's lethargy, hemoglobin dropped to 7 with a known cardiac history, we will transfuse 1 PRBCs. Discussed with the family at the bedside and agreed to the same. 2. Continue pain control as needed with holding for sedate. 3. Avoid nephrotoxins. 4. Continue all other supportive care. 5. Family does not want anything aggressive including no dialysis, likely will go back to care home facility. 6. The patient discussed with family at the bedside, verbalized understanding and answered all questions. Coordinated with the bedside RN. We will repeat labs in the morning and continue to follow. Job ID: [id number]
[2020-06-21] MEDS: Atorvastatin Calcium 40 MG TAB PO SCH (20:09)
[2020-06-22 00:30] LABS: Hemoglobin 8.2 g/dL (12.0-16.0)
[2020-06-22] MEDS: Acetaminophen 325 MG TAB PO SCH ×5 (00:31→23:13)
[2020-06-22 06:08] LABS: #Eosinphils 0.2 thou/uL (0.0-0.7); #Lymphocytes 1.2 thou/uL (1.20-3.40); #Monocytes 0.8 thou/uL (0.11-0.59); #Neutrophils 6.4 thou/uL (1.40-6.50); %Basophils 0.1 % (0.0-1.0); %Eosinophils 1.8 % (0.0-10.0); %Lymphocytes 14.2 % (21.0-51.0); %Monocytes 9.6 % (0.0-10.0); %Neutrophils 74.3 % (42.0-75.0); Hemoglobin 8.6 g/dL (12.0-16.0); Mean Corpuscular HGB CONC 33.6 g/dL (32.0-36.0); Mean Corpuscular Hemoglobin 32.5 pg (27.0-31.0); Mean Corpuscular Volume 96.7 fL (78.0-98.0); Mean Platelet Volume 10.7 fL (7.4-10.4); Platelet Count 95 thou/uL (130-400); RBC Distribution Width 12.5 % (11.5-14.5); Red Blood Cell (RBC) Count 2.63 mill/uL (4.20-5.40); White Blood Cell (WBC) Count 8.6 thou/uL (4.8-10.8)
[2020-06-22 06:25] LABS: Anion Gap 12 mmol/L (10-20); BUN (Urea Nitrogen) 51 mg/dL (9.8-20.1); Calc. Creatinine Clearance 15 mL/min (70-130); Calcium 7.7 mg/dL (7.8-10.44); Carbon Dioxide 22 mmol/L (23-31); Chloride 109 mmol/L (98-107); Estimated GFR-MDRD 13; Glucose 99 mg/dL (83-110); Magnesium 1.8 mg/dL (1.6-2.6); Phosphorus 3.9 mg/dL (2.3-4.7); Potassium 3.7 mmol/L (3.5-5.1); Sodium 139 mmol/L (136-145)
[2020-06-22] MEDS: Famotidine 20 MG TAB PO SCH (10:04)
[2020-06-22] MEDS: Carvedilol 3.125 MG TAB PO SCH ×2 (10:04→21:01)
[2020-06-22] MEDS: Oxybutynin ER 5 MG TAB PO SCH (10:05)
[2020-06-22] MEDS: hydrALAZINE 25 MG TAB PO SCH ×2 (10:05→21:01)
[2020-06-22] MEDS: Amiodarone 200 MG TAB PO SCH (10:05)
[2020-06-22] MEDS: Isosorbide Dinitrate 20 MG TAB PO SCH ×2 (10:06→21:01)
--- NOTE | 2020-06-22 10:49 | PRG ---
DATE OF SERVICE: 06/22/2020 SUBJECTIVE: Brittani is an 84-year-old female postop day 2 from a left hip hemiarthroplasty and a closed reduction, left shoulder. She is doing relatively well. Therapy is working with the patient currently. She is sitting up and standing at the bedside with a moderate to max assist of one. Otherwise, pain is improved. OBJECTIVE: VITAL SIGNS: Temperature 99.3, pulse 69, respiratory rate 16 and unlabored, O2 saturation 96% on room air, blood pressure . GENERAL: She is alert, responsive, appropriate with examiner, responds and conversive. EXTREMITIES: Left hip incision is clean. Left shoulder is in a sling. No evidence of dislocation. Reduction appears stable. She is neurovascularly intact in left upper extremity. Leg lengths appeared near normal and there is no malrotation or shortening. LABORATORY DATA: Hemoglobin and hematocrit 8.6 and 25.4. IMPRESSION: 1. An 84-year-old female, postop day 2, left hip hemiarthroplasty and closed reduction. 2. Postoperative hemorrhagic anemia, asymptomatic, tolerating. PLAN: Continue to observe for progress with independence and ADLs. Also monitor hemoglobin and hematocrit. Job ID: [id number]
--- NOTE | 2020-06-22 14:09 | PRG ---
DATE OF SERVICE: 06/22/2020 SUBJECTIVE: Patient was seen and examined at bedside and overnight events noted. Patient denies any shortness of breath or chest pain or palpitation. No history of nausea or vomiting or diarrhea or fever or chills or cramps. OBJECTIVE: General: This is a well-built female, in no apparent distress. Vital Signs: Temperature 98.0. Heart rate 74. Respiratory rate 16. Blood pressure 139/60. HEENT: Atraumatic, normocephalic. Oral mucosa is moist. Neck: Supple. Cardiovascular: S1, S2 heard. Rate and rhythm regular. Respiratory: Clear to auscultation. Gastrointestinal: Abdomen is soft. Musculoskeletal: No tenderness. No edema. Dermatologic: No skin rash. Neurologic: Alert and awake and oriented x3. No focal neurologic deficits. Moving all the extremities. Psychiatric: Mood and affect normal. LABORATORY DATA: Potassium 3.7, BUN is 51, creatinine is 3.2. ASSESSMENT AND PLAN: 1. Chronic kidney disease, stage 5, stable. 2. Edema, controlled. 3. History of hypertension. 4. Anemia of chronic disease. 5. Labs are stable. No acute indication for dialysis. Job ID: [id number]
--- NOTE | 2020-06-22 19:50 | PRG ---
DATE OF SERVICE: 06/22/2020 SUBJECTIVE: The patient was seen in morning rounds. Hemoglobin is stable. More alert today. Son is at the bedside. Tolerating diet. No acute events overnight. OBJECTIVE: VITAL SIGNS: Temperature is 98.1, blood pressure is 109/60, heart rate is 74, breathing 16 times per minute, and 96% on room air. GENERAL: An 84-year-old female, sitting up pleasantly, pleasant in bed, in no acute distress. HEENT: Normocephalic and atraumatic. RESPIRATORY: Equal rise and fall. No distress. CARDIOVASCULAR: Regular rate and rhythm. ABDOMEN: Soft. PELVIS: Stable. MUSCULOSKELETAL: She moves her extremities, difficult to walk. NEUROLOGIC: Alert and oriented. LABORATORY DATA: From today: Sodium is 139, potassium is 3.7, chloride is 109, CO2 is 22, creatinine of 3.26, glucose is 99, and calcium is 7.7. Phosphorous is 3.9. Magnesium of 1.8. White blood cell count is 8.6, platelets are 95, and hemoglobin and hematocrit 8.6 and 25.4 respectively. ASSESSMENT: 1. Status post ground-level fall. 2. Left femoral neck fracture status post open reduction and internal fixation. 3. Left shoulder strain status post reduction in the OR. 4. History of coronary artery disease. 5. Chronic kidney disease, stage 5. 6. Hypertension. PLAN: 1. Continue to closely monitor. 2. Awaiting for placement, likely back to assisted facility. 3. Continue pain control as needed. 4. Avoid nephrotoxins. 5. We will start heparin for DVT prophylaxis today given stable hemoglobin. No signs of ongoing bleeding. 6. Continue all other supportive care. Discussed with the patient's son at the bedside. Verbalized understanding. We will remove the Koenig catheter today. Job ID: [id number]
[2020-06-22] MEDS: Atorvastatin Calcium 40 MG TAB PO SCH (21:00)
[2020-06-22] MEDS: Heparin 5,000 UNITS/ML VIAL SC SCH (21:03)
[2020-06-23] MEDS ORDERED: cloNIDine 0.1 MG TAB PO PRN (00:01)
[2020-06-23] MEDS: Acetaminophen 325 MG TAB PO SCH ×2 (05:17→12:11)
[2020-06-23 05:36] LABS: #Eosinphils 0.1 thou/uL (0.0-0.7); #Lymphocytes 0.8 thou/uL (1.20-3.40); #Monocytes 0.6 thou/uL (0.11-0.59); #Neutrophils 5.7 thou/uL (1.40-6.50); %Basophils 0.1 % (0.0-1.0); %Eosinophils 1.2 % (0.0-10.0); %Lymphocytes 11.6 % (21.0-51.0); %Neutrophils 79.1 % (42.0-75.0); Hemoglobin 8.2 g/dL (12.0-16.0); Mean Corpuscular HGB CONC 34.2 g/dL (32.0-36.0); Mean Corpuscular Hemoglobin 32.8 pg (27.0-31.0); Mean Corpuscular Volume 95.9 fL (78.0-98.0); Mean Platelet Volume 10.2 fL (7.4-10.4); Platelet Count 102 thou/uL (130-400); RBC Distribution Width 12.3 % (11.5-14.5); Red Blood Cell (RBC) Count 2.51 mill/uL (4.20-5.40); White Blood Cell (WBC) Count 7.2 thou/uL (4.8-10.8)
[2020-06-23] MEDS: Carvedilol 3.125 MG TAB PO SCH (08:01)
[2020-06-23] MEDS: Famotidine 20 MG TAB PO SCH (08:01)
[2020-06-23] MEDS: Oxybutynin ER 5 MG TAB PO SCH (08:01)
[2020-06-23] MEDS: Calcitriol 0.25 MCG CAP PO SCH (08:01)
[2020-06-23] MEDS: Heparin 5,000 UNITS/ML VIAL SC SCH (08:01)
[2020-06-23] MEDS: Isosorbide Dinitrate 20 MG TAB PO SCH (08:03)
[2020-06-23] MEDS: Amiodarone 200 MG TAB PO SCH (08:03)
[2020-06-23] MEDS: hydrALAZINE 25 MG TAB PO SCH (08:03)
[2020-06-23] MEDS ORDERED: Senokot S 8.6-50 MG TAB PO SCH (09:00)
--- NOTE | 2020-06-23 10:46 | PRG ---
DATE OF SERVICE: 06/23/2020 SUBJECTIVE: An 84-year-old female, being seen for CKD. Patient denies nausea, vomiting, or chest pain. PHYSICAL EXAMINATION: General: The patient is awake and alert. Vital Signs: Afebrile, pulse 59, breathing at 16, blood pressure 130/60. HEENT: Head normocephalic and atraumatic. Eyes intact, no ulcers. Nose intact, no ulcers. Ears intact, no ulcers. Neck: Supple. No JVD. Chest: Symmetrical and clear. Cardiovascular: Shows S1 and S2, no rub, no murmur. Gastrointestinal: Abdomen is soft, bowel sounds positive. Extremities: Show no edema or ulcers. Skin: Shows no rash or petechiae. Musculoskeletal: Shows no joint swelling or stiffness. Genitourinary: Shows no Koenig or CVA tenderness. Neurologic: Motor intact. Cranial nerves intact. LABORATORY DATA: Show hemoglobin 8.2, creatinine 3.2. ASSESSMENT: 1. Chronic kidney disease stage 5, stable. 2. Hypertension, stable. 3. Anemia, stable. No indication for dialysis. We will follow closely. Job ID: [id number]
[2020-06-23 10:57] LABS: Bacteria/HPF None Seen HPF (None Seen); Bilirubin Negative (Negative); Blood, Urine Trace (Negative); Clarity Clear (Clear); Glucose, Urine (Dipstick) Normal (Negative); Ketone, Urine Negative (Negative); Leukocyte 75 Leu/uL (Negative); Nitrite Negative (Negative); Protein, Urine (Dipstick) 70 mg/dL (Neg-Trace); RBC/HPF None Seen HPF (0-3); Specific Gravity, Urine 1.017 (1.002-1.036); Squamous Epithelial 0-3 HPF (0-3); Urobilinogen Normal mg/dL (Less than 2); pH, Urine 5.5 (5.0-9.0)
[2020-06-23 11:06] LABS: Urine Culture Reflex Yes Yes
[2020-06-23 11:55] LABS: Anion Gap 12 mmol/L (10-20); BUN (Urea Nitrogen) 49 mg/dL (9.8-20.1); Calc. Creatinine Clearance 16 mL/min (70-130); Calcium 8.1 mg/dL (7.8-10.44); Carbon Dioxide 22 mmol/L (23-31); Chloride 105 mmol/L (98-107); Estimated GFR-MDRD 14; Glucose 117 mg/dL (83-110); Potassium 3.5 mmol/L (3.5-5.1); Sodium 135 mmol/L (136-145)
[2020-06-23 15:13] VITALS: BP 149/63; TEMP 98
[2020-06-24] MEDS ORDERED: Polyethylene Glycol 3350 17 GM Packet PO SCH (09:00)
== END 2020-06-23 16:20 | DRG 522 ==
LOC: ERS 18:42 → SURG A 22:22
PROVIDERS: ADMIT Specialist; ATTEND Specialist
PROC: 0SRS0JZ Replacement of Left Hip Joint, Femoral Surface with Synthetic Substitute, Open Approach (ICD-10-PCS; principal; 2020-06-20)
PROC: 0PSDXZZ Reposition Left Humeral Head, External Approach (ICD-10-PCS; 2020-06-20)
DX: S72.002A Fracture of unspecified part of neck of left femur, initial encounter for closed fracture (principal); S42.92XA Fracture of left shoulder girdle, part unspecified, initial encounter for closed fracture; N17.9 Acute kidney failure, unspecified; N18.5 Chronic kidney disease, stage 5; I12.0 Hypertensive chronic kidney disease with stage 5 chronic kidney disease or end stage renal disease; I25.2 Old myocardial infarction; W01.0XXA Fall on same level from slipping, tripping and stumbling without subsequent striking against object, initial encounter; I25.10 Atherosclerotic heart disease of native coronary artery without angina pectoris; D63.8 Anemia in other chronic diseases classified elsewhere; E78.00 Pure hypercholesterolemia, unspecified; Z90.49 Acquired absence of other specified parts of digestive tract; Z90.712 Acquired absence of cervix with remaining uterus; Z79.82 Long term (current) use of aspirin; Z79.899 Other long term (current) drug therapy; Z79.01 Long term (current) use of anticoagulants; Z88.8 Allergy status to other drugs, medicaments and biological substances; Z20.828 Contact with and (suspected) exposure to other viral communicable diseases
CPT/HCPCS: 36415; 36430; 70450; 71045; 72125; 72170; 76000; 80048; 80053; 81001; 83735; 84100; 85025; 85610; 85730; 86850; 86900; 86901; 87086; 87635; 93005; 96374; 96375; 99156; 99157; G0390; J0690; J1100; J1644; J1885; J2270; J2405; J2704; P9016; U0002; U0003

== ENCOUNTER 2021-02-21 14:58 | Inpatient (IN) | payer MEDICARE, BC ==
[2021-02-21 16:23] LABS: Bacteria/HPF 4+ HPF (None Seen); Bilirubin Negative (Negative); Blood, Urine 3+ (Negative); Clarity Turbid (Clear); Glucose, Urine (Dipstick) Normal (Negative); Ketone, Urine Negative (Negative); Leukocyte 500 Leu/uL (Negative); Nitrite Negative (Negative); Protein, Urine (Dipstick) 70 mg/dL (Neg-Trace); RBC/HPF Greater than 50 HPF (0-3); Specific Gravity, Urine 1.012 (1.002-1.036); Squamous Epithelial 0-3 HPF (0-3); Urobilinogen Normal mg/dL (Less than 2); WBC/HPF Greater than 50 HPF (0-3); pH, Urine 5.5 (5.0-9.0)
[2021-02-21 16:49] LABS: #Eosinphils 0.1 thou/uL (0.0-0.7); #Lymphocytes 0.7 thou/uL (1.20-3.40); #Monocytes 0.8 thou/uL (0.11-0.59); #Neutrophils 4.2 thou/uL (1.40-6.50); %Basophils 0.6 % (0.0-1.0); %Eosinophils 0.9 % (0.0-10.0); %Lymphocytes 11.9 % (21.0-51.0); %Monocytes 13.2 % (0.0-10.0); %Neutrophils 73.4 % (42.0-75.0); Hemoglobin 8.5 g/dL (12.0-16.0); Mean Corpuscular HGB CONC 34.1 g/dL (32.0-36.0); Mean Corpuscular Hemoglobin 34.2 pg (27.0-31.0); Mean Platelet Volume 10.4 fL (7.4-10.4); Platelet Count 103 thou/uL (130-400); RBC Distribution Width 14.2 % (11.5-14.5); Red Blood Cell (RBC) Count 2.47 mill/uL (4.20-5.40); White Blood Cell (WBC) Count 5.7 thou/uL (4.8-10.8)
[2021-02-21 16:56] LABS: INR-International Normal Ratio 1.2; Prothrombin Time 15.5 sec (12.0-14.7)
[2021-02-21 16:57] LABS: PTT 30.7 sec (22.9-36.1)
[2021-02-21 17:10] LABS: ALT (SGPT) 19 U/L (8-55); AST (SGOT) 24 U/L (5-34); Albumin 3.5 g/dL (3.4-4.8); Alkaline Phosphatase 78 U/L (40-110); Anion Gap 15 mmol/L (10-20); BUN (Urea Nitrogen) 78 mg/dL (9.8-20.1); Bilirubin, Total 0.8 mg/dL (0.2-1.2); Calc. Creatinine Clearance 0 mL/min (70-130); Calcium 8.5 mg/dL (7.8-10.44); Carbon Dioxide 22 mmol/L (23-31); Chloride 105 mmol/L (98-107); Globulin 3.2 g/dL (2.4-3.5); Glucose 108 mg/dL (83-110); Protein, Total 6.7 g/dL (5.8-8.1); Sodium 138 mmol/L (136-145)
[2021-02-21] MEDS ORDERED: cefTRIAXone\\ROCEPHIN 2 GM VIAL ONE (18:18)
[2021-02-21] MEDS ORDERED: hydrALAZINE 20 MG/ML VIAL SLOW IVP PRN (19:53)
[2021-02-21] MEDS ORDERED: Ondansetron PF 4 MG/2 ML Vial IVP PRN (19:53)
[2021-02-21] MEDS ORDERED: HYDROcodone/Acetaminophen 5/325 mg Tablet PO PRN (19:53)
[2021-02-21] MEDS ORDERED: Promethazine HCl 12.5 MG in Sodium Chloride 0.9% 50 ML IVPB PRN (19:53)
[2021-02-21] MEDS ORDERED: Acetaminophen 325 MG TAB PO PRN (19:53)
[2021-02-21] MEDS ORDERED: Labetalol HCl 100 MG/20 ML VIAL SLOW IVP PRN (19:53)
[2021-02-21] MEDS ORDERED: Melatonin 3 MG TAB PO PRN (19:53)
[2021-02-21] MEDS ORDERED: Electrolyte Replacement Protocol 1 EACH FS PRN (20:00)
[2021-02-21 21:52] VITALS: BMI 24.3
[2021-02-21] MEDS ORDERED: Sodium Chloride 0.9% 1,000 ML IV SCH (22:00)
[2021-02-22] MEDS ORDERED: hydrALAZINE 25 MG TAB PO SCH (00:15)
[2021-02-22 05:38] LABS: Hemoglobin 8.4 g/dL (12.0-16.0); Mean Corpuscular HGB CONC 31.8 g/dL (32.0-36.0); Mean Corpuscular Hemoglobin 32.1 pg (27.0-31.0); Mean Platelet Volume 10.6 fL (7.4-10.4); Platelet Count 103 thou/uL (130-400); Red Blood Cell (RBC) Count 2.61 mill/uL (4.20-5.40); White Blood Cell (WBC) Count 6.1 thou/uL (4.8-10.8)
[2021-02-22 05:56] LABS: Anion Gap 15 mmol/L (10-20); BUN (Urea Nitrogen) 76 mg/dL (9.8-20.1); Calc. Creatinine Clearance 10 mL/min (70-130); Calcium 8.3 mg/dL (7.8-10.44); Carbon Dioxide 21 mmol/L (23-31); Chloride 109 mmol/L (98-107); Glucose 98 mg/dL (83-110); Magnesium 1.8 mg/dL (1.6-2.6); Potassium 3.8 mmol/L (3.5-5.1); Sodium 141 mmol/L (136-145)
[2021-02-22 06:01] LABS: Band 5 % (5-11); Eosinophils 3 % (0-10); Large Platelets SLIGHT; Lymphocytes 13 % (21-51); MDiff Complete? YES; Monocytes 10 % (0-10); Neutrophil 69 % (42-75); Platelet Morphology Comment Appears Decreased
[2021-02-22] MEDS: Isosorbide Dinitrate 20 MG TAB PO SCH ×2 (08:32→21:22)
[2021-02-22] MEDS: Oxybutynin ER 5 MG TAB PO SCH (08:32)
[2021-02-22] MEDS: hydrALAZINE 25 MG TAB PO SCH ×3 (08:32→21:23)
[2021-02-22] MEDS: Amiodarone 200 MG TAB PO SCH (08:32)
[2021-02-22] MEDS: Carvedilol 3.125 MG TAB PO SCH ×2 (08:33→21:23)
[2021-02-22] MEDS: Aspirin Chewable 81 MG TAB PO SCH (08:33)
[2021-02-22] MEDS ORDERED: Polyethylene Glycol 3350 17 GM Packet PO SCH ×2 (09:00→21:00)
[2021-02-22] MEDS ORDERED: Famotidine 20 MG TAB PO SCH (09:00)
[2021-02-22] MEDS ORDERED: Mag-Al 1200 mg/1200 mg/30 ML UDCUP PO PRN (09:23)
[2021-02-22] MEDS ORDERED: Calcium Carbonate 500 MG ChewTAB PO PRN (09:23)
[2021-02-22] MEDS ORDERED: Labetalol HCl 100 MG/20 ML VIAL SLOW IVP PRN (09:28)
[2021-02-22] MEDS ORDERED: Sodium Chloride 0.9% 1,000 ML IV SCH ×2 (09:30→16:35)
[2021-02-22] MEDS ORDERED: Clopidogrel Bisulfate 75 MG TAB PO SCH (17:00)
[2021-02-22] MEDS ORDERED: cefTRIAXone\\ROCEPHIN 1 GM in Sodium Chloride 0.9% 100 ML IVPB SCH (20:00)
[2021-02-22] MEDS ORDERED: Enoxaparin Sodium 30 MG/0.3 ML SYRINGE SC SCH (21:00)
[2021-02-22] MEDS ORDERED: Atorvastatin Calcium 40 MG TAB PO SCH (21:00)
[2021-02-23] MEDS: cloNIDine 0.1 MG TAB PO PRN ×2 (00:53→08:56)
[2021-02-23 06:20] LABS: Anion Gap 12 mmol/L (10-20); BUN (Urea Nitrogen) 74 mg/dL (9.8-20.1); Calc. Creatinine Clearance 11 mL/min (70-130); Calcium 8.2 mg/dL (7.8-10.44); Carbon Dioxide 20 mmol/L (23-31); Chloride 111 mmol/L (98-107); Glucose 98 mg/dL (83-110); Magnesium 1.9 mg/dL (1.6-2.6); Potassium 3.7 mmol/L (3.5-5.1); Sodium 139 mmol/L (136-145)
[2021-02-23 06:46] LABS: Band 1 % (5-11); Eosinophils 2 % (0-10); Hemoglobin 8.6 g/dL (12.0-16.0); Lymphocytes 18 % (21-51); MDiff Complete? YES; Mean Corpuscular HGB CONC 32.5 g/dL (32.0-36.0); Mean Corpuscular Hemoglobin 33.1 pg (27.0-31.0); Mean Platelet Volume 10.5 fL (7.4-10.4); Monocytes 11 % (0-10); Neutrophil 68 % (42-75); Platelet Count 89 thou/uL (130-400); Platelet Morphology Comment Appears Decreased; RBC Distribution Width 14.4 % (11.5-14.5); Red Blood Cell (RBC) Count 2.61 mill/uL (4.20-5.40); White Blood Cell (WBC) Count 5.3 thou/uL (4.8-10.8)
[2021-02-23] MEDS: Carvedilol 3.125 MG TAB PO SCH (08:54)
[2021-02-23] MEDS: hydrALAZINE 25 MG TAB PO SCH (08:54)
[2021-02-23] MEDS: Aspirin Chewable 81 MG TAB PO SCH (08:54)
[2021-02-23] MEDS: Amiodarone 200 MG TAB PO SCH (08:54)
[2021-02-23] MEDS: Oxybutynin ER 5 MG TAB PO SCH (08:55)
[2021-02-23] MEDS: Isosorbide Dinitrate 20 MG TAB PO SCH (08:55)
[2021-02-23] MEDS ORDERED: Cyanocobalamin (Vitamin B-12) 1,000 MCG TAB PO SCH (09:00)
[2021-02-23] MEDS ORDERED: Saccharomyces boulardii 250 MG CAP PO SCH (09:00)
[2021-02-23] MEDS ORDERED: cefTRIAXone\\ROCEPHIN 1 GM in Sodium Chloride 0.9% 100 ML IVPB SCH ×2 (09:45→22:00)
[2021-02-23 14:37] VITALS: BP 138/53; TEMP 96
== END 2021-02-23 14:45 | disposition home or self-care (01) | DRG 683 ==
LOC: ERS 14:58 → SJJU 18:56
PROVIDERS: ADMIT Internal Medicine; ATTEND Internal Medicine
DX: N17.9 Acute kidney failure, unspecified (principal); N39.0 Urinary tract infection, site not specified; I13.0 Hypertensive heart and chronic kidney disease with heart failure and stage 1 through stage 4 chronic kidney disease, or unspecified chronic kidney disease; I50.22 Chronic systolic (congestive) heart failure; N18.4 Chronic kidney disease, stage 4 (severe); E78.5 Hyperlipidemia, unspecified; I48.0 Paroxysmal atrial fibrillation; K59.00 Constipation, unspecified; I73.9 Peripheral vascular disease, unspecified; I25.10 Atherosclerotic heart disease of native coronary artery without angina pectoris; Z90.49 Acquired absence of other specified parts of digestive tract; Z90.711 Acquired absence of uterus with remaining cervical stump; Z90.89 Acquired absence of other organs; Z88.8 Allergy status to other drugs, medicaments and biological substances
CPT/HCPCS: 36415; 76770; 80048; 80053; 81003; 81015; 82607; 82746; 83735; 85025; 85610; 85730; 87040; 87077; 87086; 87186; 96365; J0360; J0696; J2405; J3490

== ENCOUNTER 2021-06-01 12:16 | Inpatient (IN) | payer MEDICARE, BC ==
[2021-06-01 13:22] LABS: Hemoglobin 10.6 g/dL (12.0-16.0); Mean Corpuscular HGB CONC 31.7 g/dL (32.0-36.0); Mean Corpuscular Hemoglobin 31.6 pg (27.0-31.0); Mean Corpuscular Volume 99.8 fL (78.0-98.0); Mean Platelet Volume 11.2 fL (7.4-10.4); Platelet Count 75 thou/uL (130-400); RBC Distribution Width 14.1 % (11.5-14.5); Red Blood Cell (RBC) Count 3.35 mill/uL (4.20-5.40); White Blood Cell (WBC) Count 12.3 thou/uL (4.8-10.8)
[2021-06-01 13:39] LABS: ALT (SGPT) 18 U/L (8-55); AST (SGOT) 31 U/L (5-34); Alkaline Phosphatase 88 U/L (40-110); Anion Gap 19 mmol/L (10-20); BUN (Urea Nitrogen) 98 mg/dL (9.8-20.1); Bilirubin, Total 0.9 mg/dL (0.2-1.2); CK (CPK) 188 U/L (29-168); Calc. Creatinine Clearance 0 mL/min (70-130); Calcium 7.9 mg/dL (7.8-10.44); Carbon Dioxide 24 mmol/L (23-31); Chloride 98 mmol/L (98-107); Globulin 3.3 g/dL (2.4-3.5); Glucose 116 mg/dL (83-110); Lipase 11 U/L (8-78); Protein, Total 6.3 g/dL (5.8-8.1); Sodium 138 mmol/L (136-145)
[2021-06-01 13:42] LABS: Band 15 % (5-11); Elliptocytes SLIGHT = 2-5 cells (100X) (0-1/hpf); Large Platelets SLIGHT; Lymphocytes 2 % (21-51); MDiff Complete? YES; Macrocytosis SLIGHT = 6-15 cells (100X) (0-5/hpf); Monocytes 10 % (0-10); Neutrophil 73 % (42-75); Ovalocytes SLIGHT = 2-5 cells (100X) (0-1/hpf); Platelet Morphology Comment Appears Decreased; Polychromasia SLIGHT = 2-3 cells (100X) (0-2/hpf); Schistocytes SLIGHT = 2-5 cells (100X) (0-1/hpf); Tear Drops SLIGHT = 2-5 cells (100X) (0-1/hpf)
[2021-06-01 14:04] LABS: CKMB 3.6 ng/mL (0-6.6)
[2021-06-01] MEDS ORDERED: Furosemide 100 MG/10 ML VIAL ONE (14:56)
[2021-06-01] MEDS ORDERED: Potassium Chloride 20 MEQ/100 ML PREMIX BAG ONE (15:48)
[2021-06-01] MEDS ORDERED: Aspirin 325 MG TAB ONE (15:59)
[2021-06-01] MEDS ORDERED: Acetaminophen 325 MG TAB PO PRN (16:17)
[2021-06-01] MEDS ORDERED: Ondansetron ODT 4 MG TAB PO PRN (16:17)
[2021-06-01] MEDS ORDERED: Ondansetron PF 4 MG/2 ML Vial IVP PRN (16:17)
[2021-06-01] MEDS ORDERED: Acetaminophen 650 MG Suppository PR PRN (16:17)
[2021-06-01] MEDS ORDERED: hydrALAZINE 20 MG/ML VIAL SLOW IVP PRN (16:22)
[2021-06-01] MEDS ORDERED: DOBUTamine 500 mg/250 ml 250 ML IVPB SCH (16:30)
[2021-06-01 16:43] LABS: Critical Call Chem Troponin I RESULT DECREASING; Troponin I 1.163 ng/mL (< 0.028)
[2021-06-01 17:44] LABS: INR-International Normal Ratio 1.4; Prothrombin Time 17.4 sec (12.0-14.7)
[2021-06-01 17:45] LABS: PTT 39.8 sec (22.9-36.1)
[2021-06-01 17:53] LABS: Magnesium 1.9 mg/dL (1.6-2.6)
[2021-06-01] MEDS ORDERED: Furosemide 100 MG/10 ML VIAL SLOW IVP SCH (18:00)
[2021-06-01 18:12] LABS: HBSAB Concentration Less than 8.00 mIU/mL; HBSAg Index 0.19 S/CO (0-0.99); Hep B Core Total Ab Non-Reactive (NonReactive); Hep B Core Total Index 0.08 S/CO (0-0.79); Hep B Surf AB Non-Reactive (NonReactive); Hep B Surf Ag Non-Reactive S/CO (NonReactive); Hep C IgG Ab Non-Reactive (NonReactive); Hep C Index 0.08 S/CO (0-0.79)
[2021-06-01 18:20] LABS: Troponin I 1.215 ng/mL (< 0.028)
[2021-06-01 20:17] LABS: SARS-CoV-2 NAA Rapid Test Not Detected (NotDetected)
[2021-06-01] MEDS ORDERED: DOBUTamine 500 mg/250 ml 250 ML ONE (22:28)
[2021-06-01 23:04] LABS: SARS-CoV-2 NAA Rapid Test Not Detected (NotDetected)
[2021-06-02] MEDS ORDERED: Benzonatate 100 MG CAP ONE ×3 (01:54→14:32)
[2021-06-02] MEDS: Benzonatate 100 MG CAP PO PRN ×4 (01:56→20:36)
[2021-06-02 04:56] LABS: Anion Gap 20 mmol/L (10-20); BUN (Urea Nitrogen) 98 mg/dL (9.8-20.1); Calc. Creatinine Clearance 8 mL/min (70-130); Carbon Dioxide 25 mmol/L (23-31); Chloride 96 mmol/L (98-107); Glucose 118 mg/dL (83-110); Sodium 138 mmol/L (136-145)
[2021-06-02 05:01] LABS: Potassium 2.9 mmol/L (3.5-5.1)
[2021-06-02] MEDS ORDERED: Potassium Chloride 20 MEQ TAB ONE ×2 (05:55→11:18)
[2021-06-02] MEDS ORDERED: Potassium Chloride 20 MEQ TAB PO SCH ×2 (06:00→08:45)
[2021-06-02] MEDS ORDERED: Furosemide 100 MG/10 ML VIAL ONE (06:05)
[2021-06-02] MEDS: Furosemide 100 MG/10 ML VIAL SLOW IVP SCH ×2 (06:17→14:04)
[2021-06-02 06:18] LABS: Band 18 % (5-11); Hemoglobin 10.4 g/dL (12.0-16.0); Lymphocytes 11 % (21-51); MDiff Complete? YES; Mean Corpuscular HGB CONC 30.6 g/dL (32.0-36.0); Mean Corpuscular Hemoglobin 30.4 pg (27.0-31.0); Mean Corpuscular Volume 99.3 fL (78.0-98.0); Mean Platelet Volume 9.5 fL (7.4-10.4); Monocytes 2 % (0-10); Neutrophil 69 % (42-75); Platelet Count 76 thou/uL (130-400); Platelet Morphology Comment Appears Decreased; RBC Distribution Width 13.9 % (11.5-14.5); Red Blood Cell (RBC) Count 3.43 mill/uL (4.20-5.40); White Blood Cell (WBC) Count 13.4 thou/uL (4.8-10.8)
[2021-06-02] MEDS: Carvedilol 3.125 MG TAB PO SCH ×2 (11:39→20:37)
[2021-06-02] MEDS: Amiodarone 200 MG TAB PO SCH (11:39)
[2021-06-02] MEDS: hydrALAZINE 10 MG TAB PO SCH ×3 (11:39→20:37)
[2021-06-02] MEDS: Isosorbide Dinitrate 20 MG TAB PO SCH ×2 (11:40→20:37)
[2021-06-02 13:37] LABS: Anion Gap 17 mmol/L (10-20); BUN (Urea Nitrogen) 103 mg/dL (9.8-20.1); Calc. Creatinine Clearance 8 mL/min (70-130); Carbon Dioxide 25 mmol/L (23-31); Chloride 97 mmol/L (98-107); Glucose 131 mg/dL (83-110); Potassium 3.4 mmol/L (3.5-5.1); Sodium 136 mmol/L (136-145)
[2021-06-02] MEDS ORDERED: Furosemide 40 MG/4 ML VIAL ONE (13:49)
[2021-06-02] MEDS ORDERED: Heparin 10,000 UNITS/ 10 ML VIAL ONE (14:56)
[2021-06-02] MEDS ORDERED: Tuberculin PPD 0.1 ML VIAL I-DERMAL SCH (18:30)
[2021-06-02] MEDS: Atorvastatin Calcium 40 MG TAB PO SCH (20:37)
[2021-06-03] MEDS: Levothyroxine Sodium 75 MCG TAB PO SCH (04:03)
[2021-06-03] MEDS: Benzonatate 100 MG CAP PO PRN ×2 (04:03→21:48)
[2021-06-03 05:34] LABS: Anion Gap 18 mmol/L (10-20); BUN (Urea Nitrogen) 70 mg/dL (9.8-20.1); Calc. Creatinine Clearance 9 mL/min (70-130); Calcium 8.1 mg/dL (7.8-10.44); Carbon Dioxide 24 mmol/L (23-31); Chloride 98 mmol/L (98-107); Glucose 115 mg/dL (83-110); Magnesium 1.8 mg/dL (1.6-2.6); Potassium 3.9 mmol/L (3.5-5.1); Sodium 136 mmol/L (136-145)
[2021-06-03 06:27] LABS: Band 22 % (5-11); Lymphocytes 3 % (21-51); MDiff Complete? YES; Mean Corpuscular HGB CONC 32.3 g/dL (32.0-36.0); Mean Corpuscular Hemoglobin 31.7 pg (27.0-31.0); Mean Corpuscular Volume 98.1 fL (78.0-98.0); Monocytes 11 % (0-10); Neutrophil 64 % (42-75); Platelet Count 78 thou/uL (130-400); Platelet Morphology Comment Appears Decreased; RBC Distribution Width 13.8 % (11.5-14.5); Red Blood Cell (RBC) Count 3.14 mill/uL (4.20-5.40); White Blood Cell (WBC) Count 13.2 thou/uL (4.8-10.8)
[2021-06-03] MEDS ORDERED: Magnesium Sulfate 2 GM in Sodium Chloride 0.9% 100 ML IVPB SCH (08:15)
[2021-06-03] MEDS ORDERED: Calcitriol 0.25 MCG CAP PO SCH (09:00)
[2021-06-03] MEDS ORDERED: Magnesium 2 GM/50 ML 2 GM in Premix Bag 1 BAG IVPB SCH (09:00)
[2021-06-03] MEDS ORDERED: Heparin 10,000 UNITS/ 10 ML VIAL ONE (09:21)
[2021-06-03] MEDS: Amiodarone 200 MG TAB PO SCH (09:30)
[2021-06-03] MEDS: hydrALAZINE 10 MG TAB PO SCH ×3 (17:32→22:22)
[2021-06-03] MEDS: Carvedilol 3.125 MG TAB PO SCH ×2 (17:32→21:50)
[2021-06-03] MEDS: Isosorbide Dinitrate 20 MG TAB PO SCH ×2 (17:33→21:49)
[2021-06-03] MEDS: Cyanocobalamin (Vitamin B-12) 1,000 MCG TAB PO SCH (17:37)
[2021-06-03] MEDS: cefTRIAXone\\ROCEPHIN 1 GM in Sodium Chloride 0.9% 100 ML IVPB SCH (17:37)
[2021-06-03] MEDS: Atorvastatin Calcium 40 MG TAB PO SCH (21:49)
[2021-06-04 05:11] LABS: Hemoglobin 9.8 g/dL (12.0-16.0); Mean Corpuscular HGB CONC 30.4 g/dL (32.0-36.0); Mean Corpuscular Hemoglobin 30.1 pg (27.0-31.0); Mean Corpuscular Volume 99.1 fL (78.0-98.0); Mean Platelet Volume 11.5 fL (7.4-10.4); Platelet Count 97 thou/uL (130-400); RBC Distribution Width 14.1 % (11.5-14.5); Red Blood Cell (RBC) Count 3.24 mill/uL (4.20-5.40); White Blood Cell (WBC) Count 14.4 thou/uL (4.8-10.8)
[2021-06-04] MEDS: Levothyroxine Sodium 75 MCG TAB PO SCH (05:27)
[2021-06-04] MEDS: Benzonatate 100 MG CAP PO PRN ×2 (05:27→21:06)
[2021-06-04 05:28] LABS: Anion Gap 15 mmol/L (10-20); BUN (Urea Nitrogen) 41 mg/dL (9.8-20.1); Calc. Creatinine Clearance 6 mL/min (70-130); Calcium 8.3 mg/dL (7.8-10.44); Carbon Dioxide 27 mmol/L (23-31); Chloride 98 mmol/L (98-107); Glucose 110 mg/dL (83-110); Magnesium 2.1 mg/dL (1.6-2.6); Potassium 3.9 mmol/L (3.5-5.1); Sodium 136 mmol/L (136-145)
[2021-06-04 05:51] LABS: Band 36 % (5-11); Lymphocytes 7 % (21-51); MDiff Complete? YES; Monocytes 2 % (0-10); Neutrophil 55 % (42-75); Platelet Morphology Comment Appears Decreased
[2021-06-04] MEDS ORDERED: Heparin 10,000 UNITS/ 10 ML VIAL ONE (08:57)
[2021-06-04] MEDS: Amiodarone 200 MG TAB PO SCH (13:14)
[2021-06-04] MEDS: Cyanocobalamin (Vitamin B-12) 1,000 MCG TAB PO SCH (13:15)
[2021-06-04] MEDS: Carvedilol 3.125 MG TAB PO SCH ×2 (13:15→21:07)
[2021-06-04] MEDS: hydrALAZINE 10 MG TAB PO SCH ×3 (13:15→21:07)
[2021-06-04] MEDS: Isosorbide Dinitrate 20 MG TAB PO SCH ×2 (13:15→21:08)
[2021-06-04] MEDS ORDERED: Vancomycin HCl 750 MG in Sodium Chloride 0.9% 250 ML 250 ML IVPB SCH (14:00)
[2021-06-04] MEDS: cefTRIAXone\\ROCEPHIN 1 GM in Sodium Chloride 0.9% 100 ML IVPB SCH (16:31)
[2021-06-04] MEDS ORDERED: READ PPD TEST SITE PO SCH (18:30)
[2021-06-04] MEDS: Atorvastatin Calcium 40 MG TAB PO SCH (21:06)
[2021-06-04] MEDS: Cefepime 1 GM in Sodium Chloride 0.9% 100 ML IVPB SCH (21:07)
[2021-06-05] MEDS: diphenhydrAMINE 25 MG CAP PO PRN (03:05)
[2021-06-05] MEDS: Benzonatate 100 MG CAP PO PRN ×2 (04:36→20:50)
[2021-06-05] MEDS: Levothyroxine Sodium 75 MCG TAB PO SCH (05:28)
[2021-06-05 05:31] LABS: #Lymphocytes 0.7 thou/uL (1.20-3.40); #Neutrophils 12.1 thou/uL (1.40-6.50); %Basophils 0.1 % (0.0-1.0); %Eosinophils 0.2 % (0.0-10.0); %Monocytes 7.5 % (0.0-10.0); %Neutrophils 87.3 % (42.0-75.0); Hemoglobin 9.3 g/dL (12.0-16.0); Mean Corpuscular HGB CONC 32.1 g/dL (32.0-36.0); Mean Corpuscular Hemoglobin 31.8 pg (27.0-31.0); Mean Corpuscular Volume 99.1 fL (78.0-98.0); Mean Platelet Volume 11.3 fL (7.4-10.4); Platelet Count 104 thou/uL (130-400); RBC Distribution Width 14.2 % (11.5-14.5); Red Blood Cell (RBC) Count 2.91 mill/uL (4.20-5.40); White Blood Cell (WBC) Count 13.9 thou/uL (4.8-10.8)
[2021-06-05 05:51] LABS: Anion Gap 15 mmol/L (10-20); BUN (Urea Nitrogen) 35 mg/dL (9.8-20.1); Calc. Creatinine Clearance 12 mL/min (70-130); Calcium 8.6 mg/dL (7.8-10.44); Carbon Dioxide 28 mmol/L (23-31); Chloride 98 mmol/L (98-107); Glucose 90 mg/dL (83-110); Potassium 3.9 mmol/L (3.5-5.1); Sodium 137 mmol/L (136-145)
[2021-06-05] MEDS: hydrALAZINE 10 MG TAB PO SCH ×3 (08:28→20:50)
[2021-06-05] MEDS: Carvedilol 3.125 MG TAB PO SCH ×2 (08:28→20:37)
[2021-06-05] MEDS: Isosorbide Dinitrate 20 MG TAB PO SCH ×2 (08:28→20:37)
[2021-06-05] MEDS: Amiodarone 200 MG TAB PO SCH (08:28)
[2021-06-05] MEDS: Cyanocobalamin (Vitamin B-12) 1,000 MCG TAB PO SCH (08:28)
[2021-06-05] MEDS: Cefepime 1 GM in Sodium Chloride 0.9% 100 ML IVPB SCH (20:36)
[2021-06-05] MEDS: Atorvastatin Calcium 40 MG TAB PO SCH (20:37)
[2021-06-06] MEDS: Levothyroxine Sodium 75 MCG TAB PO SCH (05:07)
[2021-06-06 05:30] LABS: #Lymphocytes 0.8 thou/uL (1.20-3.40); #Monocytes 1.2 thou/uL (0.11-0.59); %Basophils 0.1 % (0.0-1.0); %Eosinophils 0.2 % (0.0-10.0); %Lymphocytes 6.4 % (21.0-51.0); %Neutrophils 84.3 % (42.0-75.0); Hemoglobin 8.8 g/dL (12.0-16.0); Mean Corpuscular HGB CONC 31.6 g/dL (32.0-36.0); Mean Corpuscular Volume 98.1 fL (78.0-98.0); Mean Platelet Volume 10.9 fL (7.4-10.4); Platelet Count 101 thou/uL (130-400); Red Blood Cell (RBC) Count 2.85 mill/uL (4.20-5.40)
[2021-06-06 05:44] LABS: Anion Gap 14 mmol/L (10-20); BUN (Urea Nitrogen) 45 mg/dL (9.8-20.1); Calc. Creatinine Clearance 10 mL/min (70-130); Calcium 8.4 mg/dL (7.8-10.44); Carbon Dioxide 28 mmol/L (23-31); Chloride 99 mmol/L (98-107); Glucose 97 mg/dL (83-110); Magnesium 2.2 mg/dL (1.6-2.6); Sodium 137 mmol/L (136-145)
[2021-06-06] MEDS ORDERED: Vancomycin Sliding Scale 1 EACH FS PRN (07:43)
[2021-06-06] MEDS ORDERED: HOLD VANCOMYCIN FOR LEVEL >20 FS SCH (07:45)
[2021-06-06] MEDS ORDERED: Vancomycin HCl 750 MG in Sodium Chloride 0.9% 250 ML 250 ML IVPB SCH (07:45)
[2021-06-06] MEDS ORDERED: Vancomycin HCl 500 MG in Sodium Chloride 0.9% 100 ML IVPB SCH (07:45)
[2021-06-06] MEDS ORDERED: Vancomycin 1 GM in Premix Bag 1 BAG IVPB SCH (07:45)
[2021-06-06] MEDS ORDERED: Vancomycin HCl 250 MG in Sodium Chloride 0.9% 100 ML IVPB SCH (07:45)
[2021-06-06] MEDS: Cyanocobalamin (Vitamin B-12) 1,000 MCG TAB PO SCH (09:00)
[2021-06-06] MEDS: Amiodarone 200 MG TAB PO SCH ×2 (09:00→19:39)
[2021-06-06] MEDS: Isosorbide Dinitrate 20 MG TAB PO SCH ×2 (09:00→19:39)
[2021-06-06] MEDS: Carvedilol 3.125 MG TAB PO SCH ×2 (09:00→19:39)
[2021-06-06] MEDS: hydrALAZINE 10 MG TAB PO SCH ×3 (09:07→19:44)
[2021-06-06] MEDS ORDERED: Heparin 10,000 UNITS/ 10 ML VIAL ONE (09:26)
[2021-06-06 09:29] LABS: Vancomycin, Random 7.4 ug/mL (See Comment)
[2021-06-06] MEDS: Benzonatate 100 MG CAP PO PRN ×2 (11:59→19:40)
[2021-06-06] MEDS ORDERED: EPOETIN ALFA-EPBX (ESRD) 10,000 UNIT/ML VIAL FS SCH (14:00)
[2021-06-06] MEDS ORDERED: hydrOXYzine 25 MG TAB PO SCH (18:00)
[2021-06-06] MEDS: Cefepime 1 GM in Sodium Chloride 0.9% 100 ML IVPB SCH (19:38)
[2021-06-06] MEDS: hydrOXYzine 25 MG TAB PO SCH (19:39)
[2021-06-06] MEDS: Atorvastatin Calcium 40 MG TAB PO SCH (19:40)
[2021-06-07] MEDS: Levothyroxine Sodium 75 MCG TAB PO SCH (05:43)
[2021-06-07] MEDS: Benzonatate 100 MG CAP PO PRN ×2 (05:43→21:16)
[2021-06-07 06:10] LABS: #Eosinphils 0.1 thou/uL (0.0-0.7); #Lymphocytes 0.9 thou/uL (1.20-3.40); #Monocytes 1.1 thou/uL (0.11-0.59); #Neutrophils 8.8 thou/uL (1.40-6.50); %Basophils 0.2 % (0.0-1.0); %Eosinophils 0.8 % (0.0-10.0); Hemoglobin 8.8 g/dL (12.0-16.0); Mean Corpuscular HGB CONC 32.5 g/dL (32.0-36.0); Mean Corpuscular Hemoglobin 31.9 pg (27.0-31.0); Mean Platelet Volume 11.2 fL (7.4-10.4); Platelet Count 89 thou/uL (130-400); RBC Distribution Width 14.3 % (11.5-14.5); Red Blood Cell (RBC) Count 2.76 mill/uL (4.20-5.40); White Blood Cell (WBC) Count 10.8 thou/uL (4.8-10.8)
[2021-06-07 06:26] LABS: Anion Gap 14 mmol/L (10-20); BUN (Urea Nitrogen) 26 mg/dL (9.8-20.1); Calc. Creatinine Clearance 12 mL/min (70-130); Carbon Dioxide 28 mmol/L (23-31); Chloride 101 mmol/L (98-107); Glucose 101 mg/dL (83-110); Potassium 4.2 mmol/L (3.5-5.1); Sodium 139 mmol/L (136-145)
[2021-06-07] MEDS: hydrALAZINE 10 MG TAB PO SCH ×3 (08:24→21:04)
[2021-06-07] MEDS: Isosorbide Dinitrate 20 MG TAB PO SCH ×2 (08:25→20:58)
[2021-06-07] MEDS: Amiodarone 200 MG TAB PO SCH ×2 (08:25→20:58)
[2021-06-07] MEDS: Cyanocobalamin (Vitamin B-12) 1,000 MCG TAB PO SCH (08:25)
[2021-06-07] MEDS: hydrOXYzine 25 MG TAB PO SCH ×2 (08:25→16:11)
[2021-06-07] MEDS: Carvedilol 3.125 MG TAB PO SCH ×2 (08:29→20:57)
[2021-06-07 13:44] LABS: Vancomycin, Random 10.6 ug/mL (See Comment)
[2021-06-07] MEDS ORDERED: Vancomycin HCl 500 MG in Sodium Chloride 0.9% 100 ML IVPB SCH (14:00)
[2021-06-07] MEDS: Atorvastatin Calcium 40 MG TAB PO SCH (20:57)
[2021-06-07] MEDS: Cefepime 1 GM in Sodium Chloride 0.9% 100 ML IVPB SCH (21:05)
[2021-06-08] MEDS: Levothyroxine Sodium 75 MCG TAB PO SCH (05:14)
[2021-06-08 06:06] LABS: Band 4 % (5-11); Eosinophils 4 % (0-10); Hemoglobin 8.8 g/dL (12.0-16.0); Lymphocytes 10 % (21-51); MDiff Complete? YES; Mean Corpuscular HGB CONC 31.9 g/dL (32.0-36.0); Mean Corpuscular Hemoglobin 31.4 pg (27.0-31.0); Mean Corpuscular Volume 98.3 fL (78.0-98.0); Mean Platelet Volume 11.4 fL (7.4-10.4); Monocytes 8 % (0-10); Myelocyte 1 % (0-0); Neutrophil 73 % (42-75); Nucleated RBC 2 % (0); Platelet Count 88 thou/uL (130-400); Platelet Morphology Comment Appears Decreased; RBC Distribution Width 14.6 % (11.5-14.5); Red Blood Cell (RBC) Count 2.79 mill/uL (4.20-5.40); White Blood Cell (WBC) Count 11.1 thou/uL (4.8-10.8)
[2021-06-08 06:08] LABS: Albumin 2.7 g/dL (3.4-4.8); Anion Gap 13 mmol/L (10-20); BUN (Urea Nitrogen) 32 mg/dL (9.8-20.1); BUN/Creatinine Ratio 7.55; Calc. Creatinine Clearance 10 mL/min (70-130); Carbon Dioxide 30 mmol/L (23-31); Chloride 101 mmol/L (98-107); Glucose 130 mg/dL (83-110); Phosphorus 2.6 mg/dL (2.3-4.7); Potassium 3.7 mmol/L (3.5-5.1); Sodium 140 mmol/L (136-145)
[2021-06-08] MEDS ORDERED: Heparin 10,000 UNITS/ 10 ML VIAL ONE (08:43)
[2021-06-08] MEDS: hydrALAZINE 10 MG TAB PO SCH ×3 (09:50→21:45)
[2021-06-08] MEDS: Amiodarone 200 MG TAB PO SCH ×3 (09:51→22:00)
[2021-06-08] MEDS: Cyanocobalamin (Vitamin B-12) 1,000 MCG TAB PO SCH (09:51)
[2021-06-08] MEDS: Carvedilol 3.125 MG TAB PO SCH ×2 (09:51→21:45)
[2021-06-08] MEDS: Isosorbide Dinitrate 20 MG TAB PO SCH ×3 (09:52→23:32)
[2021-06-08 13:09] LABS: Vancomycin, Random 15.1 ug/mL (See Comment)
[2021-06-08] MEDS: EPOETIN ALFA-EPBX (ESRD) 10,000 UNIT/ML VIAL IVP SCH (16:53)
[2021-06-08] MEDS ORDERED: Vancomycin HCl 250 MG in Sodium Chloride 0.9% 100 ML IVPB SCH (18:00)
[2021-06-08] MEDS: Cefepime 1 GM in Sodium Chloride 0.9% 100 ML IVPB SCH (21:41)
[2021-06-08] MEDS: Atorvastatin Calcium 40 MG TAB PO SCH (21:48)
[2021-06-08] MEDS: hydrOXYzine 25 MG TAB PO PRN (23:22)
[2021-06-09] MEDS: Levothyroxine Sodium 75 MCG TAB PO SCH (06:21)
[2021-06-09 06:56] LABS: #Eosinphils 0.1 thou/uL (0.0-0.7); #Lymphocytes 1.1 thou/uL (1.20-3.40); #Monocytes 1.1 thou/uL (0.11-0.59); #Neutrophils 8.8 thou/uL (1.40-6.50); %Basophils 0.4 % (0.0-1.0); %Eosinophils 0.6 % (0.0-10.0); %Lymphocytes 9.6 % (21.0-51.0); %Monocytes 9.9 % (0.0-10.0); %Neutrophils 79.4 % (42.0-75.0); Hemoglobin 8.7 g/dL (12.0-16.0); Mean Corpuscular HGB CONC 32.2 g/dL (32.0-36.0); Mean Corpuscular Volume 99.2 fL (78.0-98.0); Mean Platelet Volume 11.3 fL (7.4-10.4); Platelet Count 89 thou/uL (130-400); RBC Distribution Width 14.6 % (11.5-14.5); Red Blood Cell (RBC) Count 2.73 mill/uL (4.20-5.40)
[2021-06-09 07:07] LABS: Anion Gap 13 mmol/L (10-20); BUN (Urea Nitrogen) 23 mg/dL (9.8-20.1); Calc. Creatinine Clearance 13 mL/min (70-130); Carbon Dioxide 30 mmol/L (23-31); Chloride 102 mmol/L (98-107); Glucose 98 mg/dL (83-110); Potassium 3.6 mmol/L (3.5-5.1); Sodium 141 mmol/L (136-145)
[2021-06-09] MEDS: Carvedilol 3.125 MG TAB PO SCH ×2 (08:54→19:35)
[2021-06-09] MEDS: Cyanocobalamin (Vitamin B-12) 1,000 MCG TAB PO SCH (08:55)
[2021-06-09] MEDS: Amiodarone 200 MG TAB PO SCH ×2 (08:55→19:34)
[2021-06-09] MEDS: Isosorbide Dinitrate 20 MG TAB PO SCH ×2 (08:55→19:36)
[2021-06-09] MEDS: hydrALAZINE 10 MG TAB PO SCH ×3 (08:58→19:34)
[2021-06-09] MEDS ORDERED: Lidocaine 1% w/Epinephrine 1:100K 20 ML VIAL ONE (13:18)
[2021-06-09] MEDS ORDERED: Sodium Chloride 0.9% 30 ML ONE (13:18)
[2021-06-09] MEDS ORDERED: Bupivacaine 0.25% HCL 30 ML VIAL ONE (13:18)
[2021-06-09] MEDS ORDERED: Fentanyl 100 MCG/2 ML VIAL ONE (13:52)
[2021-06-09] MEDS ORDERED: ePHEDrine 50 MG/ML VIAL ONE (14:06)
[2021-06-09] MEDS ORDERED: Heparin 10,000 UNITS/ 10 ML VIAL ONE (14:06)
[2021-06-09] MEDS ORDERED: PROPOFOL 200 MG/20 ML VIAL ONE (14:06)
[2021-06-09 18:30] LABS: SARS-CoV-2 PCR by NAA Not Detected (NotDetected)
[2021-06-09] MEDS: Atorvastatin Calcium 40 MG TAB PO SCH (19:35)
[2021-06-09] MEDS: Cefepime 1 GM in Sodium Chloride 0.9% 100 ML IVPB SCH (19:36)
[2021-06-10] MEDS: Levothyroxine Sodium 75 MCG TAB PO SCH (05:06)
[2021-06-10 08:39] LABS: #Eosinphils 0.1 thou/uL (0.0-0.7); #Neutrophils 9.5 thou/uL (1.40-6.50); %Basophils 0.1 % (0.0-1.0); %Eosinophils 0.7 % (0.0-10.0); %Lymphocytes 8.6 % (21.0-51.0); %Monocytes 8.3 % (0.0-10.0); %Neutrophils 82.3 % (42.0-75.0); Hemoglobin 8.6 g/dL (12.0-16.0); Mean Corpuscular HGB CONC 31.2 g/dL (32.0-36.0); Mean Corpuscular Hemoglobin 31.2 pg (27.0-31.0); Mean Platelet Volume 10.8 fL (7.4-10.4); Platelet Count 112 thou/uL (130-400); RBC Distribution Width 15.5 % (11.5-14.5); Red Blood Cell (RBC) Count 2.77 mill/uL (4.20-5.40); White Blood Cell (WBC) Count 11.6 thou/uL (4.8-10.8)
[2021-06-10 08:43] LABS: Vancomycin, Random 13.6 ug/mL (See Comment)
[2021-06-10 08:44] LABS: Anion Gap 10 mmol/L (10-20); BUN (Urea Nitrogen) 33 mg/dL (9.8-20.1); Calc. Creatinine Clearance 9 mL/min (70-130); Carbon Dioxide 30 mmol/L (23-31); Chloride 99 mmol/L (98-107); Glucose 111 mg/dL (83-110); Potassium 3.5 mmol/L (3.5-5.1); Sodium 135 mmol/L (136-145)
[2021-06-10] MEDS ORDERED: Heparin 10,000 UNITS/ 10 ML VIAL ONE (09:07)
[2021-06-10] MEDS: EPOETIN ALFA-EPBX (ESRD) 10,000 UNIT/ML VIAL IVP SCH (10:21)
[2021-06-10 10:38] LABS: MDiff Complete? YES; Platelet Morphology Comment Appears Decreased; Polychromasia SLIGHT = 2-3 cells (100X) (0-2/hpf); Schistocytes SLIGHT = 2-5 cells (100X) (0-1/hpf)
[2021-06-10] MEDS: Amiodarone 200 MG TAB PO SCH ×2 (11:42→20:37)
[2021-06-10] MEDS: hydrALAZINE 10 MG TAB PO SCH ×3 (11:43→20:36)
[2021-06-10] MEDS: Carvedilol 3.125 MG TAB PO SCH ×2 (11:44→20:37)
[2021-06-10] MEDS: Cyanocobalamin (Vitamin B-12) 1,000 MCG TAB PO SCH (11:44)
[2021-06-10] MEDS: Isosorbide Dinitrate 20 MG TAB PO SCH ×2 (11:44→20:37)
[2021-06-10] MEDS: hydrOXYzine 25 MG TAB PO PRN (15:14)
[2021-06-10] MEDS: Clopidogrel Bisulfate 75 MG TAB PO SCH (17:17)
[2021-06-10] MEDS: Cefepime 1 GM in Sodium Chloride 0.9% 100 ML IVPB SCH (20:37)
[2021-06-10] MEDS: Atorvastatin Calcium 40 MG TAB PO SCH (20:37)
[2021-06-11 05:21] LABS: Anion Gap 14 mmol/L (10-20); BUN (Urea Nitrogen) 23 mg/dL (9.8-20.1); Calc. Creatinine Clearance 12 mL/min (70-130); Calcium 7.7 mg/dL (7.8-10.44); Carbon Dioxide 26 mmol/L (23-31); Chloride 101 mmol/L (98-107); Glucose 98 mg/dL (83-110); Magnesium 1.9 mg/dL (1.6-2.6); Potassium 3.8 mmol/L (3.5-5.1); Sodium 137 mmol/L (136-145)
[2021-06-11] MEDS: Levothyroxine Sodium 75 MCG TAB PO SCH (05:30)
[2021-06-11] MEDS: Isosorbide Dinitrate 20 MG TAB PO SCH ×2 (08:53→21:05)
[2021-06-11] MEDS: Carvedilol 3.125 MG TAB PO SCH ×2 (08:53→21:05)
[2021-06-11] MEDS: Amiodarone 200 MG TAB PO SCH ×2 (08:53→21:06)
[2021-06-11] MEDS: Cyanocobalamin (Vitamin B-12) 1,000 MCG TAB PO SCH (08:53)
[2021-06-11] MEDS: Aspirin 81 mg Enteric Coated Tablet PO SCH (08:53)
[2021-06-11] MEDS: hydrOXYzine 25 MG TAB PO PRN (08:54)
[2021-06-11] MEDS: hydrALAZINE 10 MG TAB PO SCH ×3 (08:54→21:03)
[2021-06-11 09:18] VITALS: BMI 26.2
[2021-06-11] MEDS: Clopidogrel Bisulfate 75 MG TAB PO SCH (16:02)
[2021-06-11] MEDS: Cefepime 1 GM in Sodium Chloride 0.9% 100 ML IVPB SCH (21:02)
[2021-06-11] MEDS: Atorvastatin Calcium 40 MG TAB PO SCH (21:06)
[2021-06-12] MEDS: diphenhydrAMINE 25 MG CAP PO PRN ×2 (01:06→22:07)
[2021-06-12 04:54] LABS: Anion Gap 13 mmol/L (10-20); BUN (Urea Nitrogen) 32 mg/dL (9.8-20.1); Calc. Creatinine Clearance 9 mL/min (70-130); Carbon Dioxide 27 mmol/L (23-31); Chloride 103 mmol/L (98-107); Sodium 139 mmol/L (136-145)
[2021-06-12 04:55] LABS: Calcium 7.8 mg/dL (7.8-10.44); Glucose 103 mg/dL (83-110)
[2021-06-12 04:56] LABS: #Eosinphils 0.3 thou/uL (0.0-0.7); #Lymphocytes 1.1 thou/uL (1.20-3.40); #Monocytes 1.2 thou/uL (0.11-0.59); #Neutrophils 8.3 thou/uL (1.40-6.50); %Basophils 0.4 % (0.0-1.0); %Eosinophils 2.3 % (0.0-10.0); %Lymphocytes 9.7 % (21.0-51.0); %Monocytes 11.3 % (0.0-10.0); %Neutrophils 76.3 % (42.0-75.0); Hemoglobin 8.9 g/dL (12.0-16.0); Mean Corpuscular HGB CONC 31.4 g/dL (32.0-36.0); Mean Corpuscular Hemoglobin 30.9 pg (27.0-31.0); Mean Corpuscular Volume 98.4 fL (78.0-98.0); Mean Platelet Volume 10.8 fL (7.4-10.4); Platelet Count 107 thou/uL (130-400); RBC Distribution Width 15.8 % (11.5-14.5); Red Blood Cell (RBC) Count 2.89 mill/uL (4.20-5.40); White Blood Cell (WBC) Count 10.9 thou/uL (4.8-10.8)
[2021-06-12] MEDS: Levothyroxine Sodium 75 MCG TAB PO SCH (05:14)
[2021-06-12 08:15] LABS: HBSAB Concentration Less than 8.00 mIU/mL; Hep B Core Total Ab Non-Reactive (NonReactive); Hep B Core Total Index 0.07 S/CO (0-0.79); Hep B Surf AB Non-Reactive (NonReactive); Hep B Surf Ag Non-Reactive S/CO (NonReactive); Hep C IgG Ab Non-Reactive (NonReactive); Hep C Index 0.07 S/CO (0-0.79)
[2021-06-12] MEDS ORDERED: Heparin 10,000 UNITS/ 10 ML VIAL ONE (10:46)
[2021-06-12] MEDS: hydrALAZINE 10 MG TAB PO SCH ×3 (13:54→21:03)
[2021-06-12] MEDS: Amiodarone 200 MG TAB PO SCH ×2 (13:55→21:02)
[2021-06-12] MEDS: Aspirin 81 mg Enteric Coated Tablet PO SCH (13:55)
[2021-06-12] MEDS: Cyanocobalamin (Vitamin B-12) 1,000 MCG TAB PO SCH (13:56)
[2021-06-12] MEDS: Carvedilol 3.125 MG TAB PO SCH ×2 (13:56→21:03)
[2021-06-12] MEDS: EPOETIN ALFA-EPBX (ESRD) 10,000 UNIT/ML VIAL IVP SCH (13:57)
[2021-06-12] MEDS: Isosorbide Dinitrate 20 MG TAB PO SCH ×2 (13:57→21:07)
[2021-06-12] MEDS: Clopidogrel Bisulfate 75 MG TAB PO SCH (19:12)
[2021-06-12] MEDS: Atorvastatin Calcium 40 MG TAB PO SCH (21:03)
[2021-06-13] MEDS: diphenhydrAMINE 25 MG CAP PO PRN (04:23)
[2021-06-13 05:30] LABS: #Basophils 0.1 thou/uL (0.0-0.2); #Eosinphils 0.3 thou/uL (0.0-0.7); #Lymphocytes 1.1 thou/uL (1.20-3.40); #Monocytes 1.5 thou/uL (0.11-0.59); #Neutrophils 7.5 thou/uL (1.40-6.50); %Basophils 0.6 % (0.0-1.0); %Eosinophils 2.5 % (0.0-10.0); %Lymphocytes 10.5 % (21.0-51.0); %Monocytes 14.4 % (0.0-10.0); Hemoglobin 9.3 g/dL (12.0-16.0); Mean Corpuscular HGB CONC 32.3 g/dL (32.0-36.0); Mean Corpuscular Hemoglobin 31.8 pg (27.0-31.0); Mean Corpuscular Volume 98.7 fL (78.0-98.0); Mean Platelet Volume 10.6 fL (7.4-10.4); Platelet Count 130 thou/uL (130-400); RBC Distribution Width 16.1 % (11.5-14.5); Red Blood Cell (RBC) Count 2.91 mill/uL (4.20-5.40); White Blood Cell (WBC) Count 10.4 thou/uL (4.8-10.8)
[2021-06-13 05:34] LABS: Anion Gap 12 mmol/L (10-20); BUN (Urea Nitrogen) 24 mg/dL (9.8-20.1); Calc. Creatinine Clearance 12 mL/min (70-130); Calcium 8.1 mg/dL (7.8-10.44); Carbon Dioxide 29 mmol/L (23-31); Chloride 102 mmol/L (98-107); Glucose 122 mg/dL (83-110); Magnesium 2.1 mg/dL (1.6-2.6); Potassium 3.9 mmol/L (3.5-5.1); Sodium 139 mmol/L (136-145)
[2021-06-13] MEDS: Levothyroxine Sodium 75 MCG TAB PO SCH (06:27)
[2021-06-13] MEDS: Isosorbide Dinitrate 20 MG TAB PO SCH (08:36)
[2021-06-13] MEDS: Carvedilol 3.125 MG TAB PO SCH (08:36)
[2021-06-13] MEDS: Aspirin 81 mg Enteric Coated Tablet PO SCH (08:36)
[2021-06-13] MEDS: Cyanocobalamin (Vitamin B-12) 1,000 MCG TAB PO SCH (08:36)
[2021-06-13] MEDS: Amiodarone 200 MG TAB PO SCH (08:37)
[2021-06-13] MEDS: hydrALAZINE 10 MG TAB PO SCH ×2 (08:37→15:54)
[2021-06-13] MEDS: Clopidogrel Bisulfate 75 MG TAB PO SCH (15:54)
[2021-06-13 15:55] VITALS: BP 127/58
[2021-06-13 18:05] VITALS: TEMP 97.7
== END 2021-06-13 19:40 | DRG 291 ==
LOC: ERS 12:16 → ERHOLD 15:46 → 2NO 06-02 16:00
PROVIDERS: ADMIT Internal Medicine; ATTEND Internal Medicine
PROC: 5A1D70Z Performance of Urinary Filtration, Intermittent, Less than 6 Hours Per Day (ICD-10-PCS; principal; 2021-06-02)
PROC: 06HY33Z Insertion of Infusion Device into Lower Vein, Percutaneous Approach (ICD-10-PCS; 2021-06-02)
PROC: 30233R1 Transfusion of Nonautologous Platelets into Peripheral Vein, Percutaneous Approach (ICD-10-PCS; 2021-06-09)
PROC: 0JH63XZ Insertion of Tunneled Vascular Access Device into Chest Subcutaneous Tissue and Fascia, Percutaneous Approach (ICD-10-PCS; 2021-06-09)
PROC: 02HV33Z Insertion of Infusion Device into Superior Vena Cava, Percutaneous Approach (ICD-10-PCS; 2021-06-09)
PROC: B5181ZA Fluoroscopy of Superior Vena Cava using Low Osmolar Contrast, Guidance (ICD-10-PCS; 2021-06-09)
PROC: B548ZZA Ultrasonography of Superior Vena Cava, Guidance (ICD-10-PCS; 2021-06-09)
DX: I13.2 Hypertensive heart and chronic kidney disease with heart failure and with stage 5 chronic kidney disease, or end stage renal disease (principal); Z66 Do not resuscitate; Z20.822 Contact with and (suspected) exposure to COVID-19; I50.23 Acute on chronic systolic (congestive) heart failure; J96.01 Acute respiratory failure with hypoxia; N18.6 End stage renal disease; J69.0 Pneumonitis due to inhalation of food and vomit; N17.9 Acute kidney failure, unspecified; R64 Cachexia; I47.1 Supraventricular tachycardia; E78.5 Hyperlipidemia, unspecified; D63.1 Anemia in chronic kidney disease; E78.00 Pure hypercholesterolemia, unspecified; E87.6 Hypokalemia; I73.9 Peripheral vascular disease, unspecified; D69.6 Thrombocytopenia, unspecified; E88.09 Other disorders of plasma-protein metabolism, not elsewhere classified; R80.9 Proteinuria, unspecified; D72.829 Elevated white blood cell count, unspecified; I42.0 Dilated cardiomyopathy; H11.9 Unspecified disorder of conjunctiva; I08.3 Combined rheumatic disorders of mitral, aortic and tricuspid valves; I25.10 Atherosclerotic heart disease of native coronary artery without angina pectoris; I48.0 Paroxysmal atrial fibrillation; R13.10 Dysphagia, unspecified; I27.20 Pulmonary hypertension, unspecified; R79.89 Other specified abnormal findings of blood chemistry; I25.2 Old myocardial infarction; Z90.49 Acquired absence of other specified parts of digestive tract; Z90.89 Acquired absence of other organs; Z88.4 Allergy status to anesthetic agent; Z79.899 Other long term (current) drug therapy; Z79.82 Long term (current) use of aspirin; Z79.02 Long term (current) use of antithrombotics/antiplatelets; Z98.890 Other specified postprocedural states; Z95.828 Presence of other vascular implants and grafts; Z90.710 Acquired absence of both cervix and uterus; Z79.01 Long term (current) use of anticoagulants; Z68.25 Body mass index [BMI] 25.0-25.9, adult
CPT/HCPCS: 36415; 36430; 36556; 71045; 71046; 76705; 80048; 80069; 80202; 82550; 82553; 83690; 83735; 83880; 84443; 84484; 85025; 85610; 85730; 86580; 86704; 86706; 86803; 86850; 86870; 86880; 86900; 86901; 86905; 86922; 87040; 87340; 90935; 93005; 93306; 93798; 93970; 96365; 96366; 96375; C1752; G0257; J0692; J0696; J1250; J1642; J1644; J1940; J2704; J3010; J3370; J3475; J3480; J3490; J7050; P9035; Q5105; S0020; U0002; U0003; U0005